=== PATIENT | male | born 1950 | race Caucasian/White ===

== ENCOUNTER 2018-04-10 20:55 | Inpatient (IN) ==
[2018-04-18] MEDS ORDERED: Acetaminophen 325 MG Tablet PO PRN (00:01)
[2018-04-18] MEDS ORDERED: Bisacodyl 10 MG Supp RECTAL PRN (00:01)
[2018-04-18] MEDS ORDERED: Morphine Inj 4 MG/ML Vial IV.PUSH PRN (00:01)
[2018-04-18] MEDS ORDERED: Warfarin Consult Pharmacy 1 EACH OTHER SCH (00:01)
[2018-04-18] MEDS ORDERED: Insulin NovoLOG Aspart Correctional Sugar Inj SQ SCH (00:01)
[2018-04-18] MEDS ORDERED: Sod Chloride 0.9% Inj 1,000 ML IV.SIG SCH (00:01)
[2018-04-18] MEDS ORDERED: Dextrose 50% in Water 50 ML Vial IV.PUSH PRN (00:01)
[2018-04-18] MEDS ORDERED: Levothyroxine 75 MCG Tablet PO SCH (06:00)
[2018-04-18] MEDS ORDERED: Levothyroxine 100 MCG Tablet PO SCH (06:00)
[2018-04-18] MEDS ORDERED: Gentamicin 0.1% Cream 15 GM Cream TOPICAL SCH (09:00)
[2018-04-18] MEDS ORDERED: Heparin Central Flush 100 UNIT/ML 5 ML Vial IV.FLUSH SCH (09:00)
[2018-04-18] MEDS ORDERED: amLODIPine 5 MG Tablet PO SCH (09:00)
[2018-04-18] MEDS ORDERED: DAPTOmycin Inj 400 MG in Sodium Chlor 0.9% Inj 100 ML IV.SIG SCH (09:00)
[2018-04-18] MEDS ORDERED: Furosemide 20 MG Tablet PO SCH (09:00)
[2018-04-18] MEDS ORDERED: Senna/Docusate Sodium 8.6/50 MG Tablet PO SCH (09:00)
[2018-04-18] MEDS ORDERED: Insulin Detemir Inj 1,000 UNIT/10 ML Vial SQ SCH (09:00)
[2018-04-18] MEDS ORDERED: Lidocaine 5% Patch T-DERMAL SCH (09:00)
[2018-04-18] MEDS ORDERED: Pregabalin 75 MG Capsule PO SCH (09:00)
[2018-04-18] MEDS ORDERED: Venlafaxine XR 75 MG Capsule PO SCH (09:00)
== END 2018-04-17 13:43 ==
LOC: MERGE 22:47 → N03 22:47
PROVIDERS: ADMIT Hospitalist; ATTEND Hospitalist

== ENCOUNTER 2018-06-22 00:47 | Inpatient (IN) ==
[2018-06-22 01:09] LABS: Baso % (Auto) 0.1 % (0.0-2.0); Eos % (Auto) 0.1 % (0.0-4.0); Hematocrit 35.2 % (39.0-51.0); Hemoglobin 11.9 gm/dL (13.0-17.0); Lymph # (Auto) 0.7 th/mm3 (1.0-4.8); Mean Corpuscular HGB Conc 33.7 % (32.0-36.0); Mean Corpuscular Hemoglobin 31.8 pg (27.0-34.0); Mean Corpuscular Volume 94.5 fL (80.0-100.0); Mean Platelet Volume 7.7 fL (7.0-11.0); Mono # (Auto) 0.5 th/mm3 (0.0-0.9); Mono % (Auto) 5.6 % (0.0-8.0); Neut # (Auto) 8.4 th/mm3 (1.8-7.7); Neut % (Auto) 87.2 % (16.0-70.0); Platelet Count 220 th/mm3 (150-450); Red Blood Count 3.73 mil/mm3 (4.50-5.90); Red Cell Distribution Width 15.6 % (11.6-17.2); White Blood Count 9.7 th/mm3 (4.0-11.0)
--- NOTE | 2018-06-22 01:22 | XR ---
EXAM DATE: 06/22/2018 1:17 AM EDT AGE/SEX: 89 years / Male INDICATIONS: Trauma. CLINICAL DATA: This is the patient's initial encounter. Patient reports that signs and symptoms have been present for 1 day and indicates a pain score of Nonresponsive. MEDICAL/SURGICAL HISTORY: Non-responsive. Non-responsive. COMPARISON: No prior exams available for comparison. FINDINGS: 2 AP views of the pelvis performed on a trauma backboard demonstrate no definite fracture or dislocat ion. Sacroiliac joints are symmetric without widening. Penile prosthesis is present. No soft tissue a bnormality is appreciated. CONCLUSION: No acute pelvis abnormality is identified. Electronically signed by: Tommie Merino MD 06/22/2018 1:21 AM EDT
--- NOTE | 2018-06-22 01:25 | CT ---
EXAM DATE: 06/22/2018 1:17 AM EDT AGE/SEX: 89 years / Male INDICATIONS: Trauma Alert, fall. No feeling from neck down. CLINICAL DATA: This is the patient's initial encounter. Patient reports that signs and symptoms have been present for 1 day and indicates a pain score of 0/10. MEDICAL/SURGICAL HISTORY: None. None. RADIATION DOSE: 70.40 CTDI (mGy) ;Tabletop exam COMPARISON: No prior exams available for comparison. TECHNIQUE: CT of the head without contrast. Using automated exposure control and adjustment of the mA and/or kV according to patient size, radiation dose was kept as low as reasonably achievable to ob tain optimal diagnostic quality images. DICOM format image data is available electronically for revi ew and comparison. FINDINGS: Cerebrum: There is mild generalized atrophy and ventricles are normal given the degree of atrophy. M ild periventricular white matter change is present. No midline shift, mass lesion, hemorrhage or acu te infarction. No extraaxial fluid collections are seen. Posterior Fossa: The cerebellum and brainstem demonstrate no acute abnormality. The 4th ventricle is midline. The cerebellopontine angle is within normal limits. Extracranial: There is frontal scalp soft tissue swelling. Skull: The calvaria is intact. No skull fracture. CONCLUSION: 1. Frontal scalp soft tissue swelling. No skull fracture or acute intracranial abnormality is identi fied. 2. There is mild generalized atrophy. . Electronically signed by: Tommie Merino MD 06/22/2018 1:23 AM EDT
--- NOTE | 2018-06-22 01:25 | ED ---
HPI General Chief Complaint: Trauma Alert Stated Complaint: Trauma Alert Lev I Fall/Evac Time Seen by Provider: 06/22/18 01:23 Source: patient and EMS Mode of arrival: EMS Limitations: no limitations History of Present Illness HPI narrative: The patient is a 68 year old male who presents to the [facility] emergency department with a history of with a reported history of a fall that occurred at approximately 12:30 PM yesterday. The patient presents approximate 12 hours after the fall. The patient reports that he was walking and tripped on a step up. The patient reports that he hit his head and did not lose consciousness. He reports that he woke up on the floor and was unable to move his arms or legs. He was lying on his right side until a friend came over to check on him. The patient was found lying on his right side, ambulance services were called. The patient was noted to be paralyzed below the neck. At level 1 trauma alert was called to this facility. The patient was noted prior to arrival to be hypertensive, pulse was in the 60s. The patient's O2 saturations were being maintained at a normal pulse ox by ambulance services. The patient was noted to have an abrasion above the right eye. The patient was unable to tolerate having a cervical collar placed, therefore he was brought in by ambulance services with a towel secured around his neck. The patient's only complaint is neck pain. He denies any pain in any other location, however he reports having numbness and inability to move his extremities, both arms and legs. Patient reports that his tetanus was last updated within the last 5 years. Related Data Allergies Allergy/AdvReac Type Severity Reaction Status Date / Time No Allergy Information Allergy Unverified 06/22/18 00:48 Available Review of Systems ROS: all other systems reviewed are negative PMFSH History History Provided By: Patient and Unit Secy / EMT Medical History Medical History Diabetes mellitus (Acute) Hyperlipidemia (Acute) Hypertension (Acute) Neck injury (Acute) Surgical History Surgical History S/P cervical spinal fusion (Acute) Social History Social History Second Hand Smoke Exposure: No Smoking Status: Unknown if ever smoked Exam Narrative Exam Narrative: General: The patient is a well-developed well-nourished male, uncomfortable appearing on arrival reporting neck pain. The patient is brought in on a back board with a towel secured around his neck for a cervical collar. Head and Neck exam: Head is normocephalic evidence of trauma to the right side of the forehead with an abrasion overlying an area of ecchymosis above the right eye. No facial bone tenderness or increased facial bone mobility noted on palpation. Eyes: EOMI, pupils are equal round and reactive to light. Nose: Midline septum with pink mucous membranes Mouth: Dentition unremarkable. Moist mucus membranes. Posterior oropharynx is not erythematous. No tonsillar hypertrophy. Uvula midline. Airway patent. Neck: The patient's cervical spine was immobilized with a cervical collar after the towel was gently removed while in line immobilization was maintained. No tracheal deviation. The trachea appears midline. Cardiovascular: Regular rate and rhythm without murmurs, gallops, or rubs. No pulse deficit to the extremities on simultaneous auscultation and palpation of his radial artery. Lungs: Clear to auscultation bilaterally. No wheezes, rhonchi, or rales. No chest wall tenderness to palpation. No erythema or ecchymosis noted. No crepitus , step off, or flail segment noted. Abdomen: Soft, without tenderness to palpation in all 4 quadrants of the abdomen. No guarding, rebound, or rigidity. No erythema or ecchymosis noted. Extremities: No instability or pain noted on pelvic rock. The patient has difficult to palpate pulse on the right upper extremity, however it is noted to be present, 1+ on exam with good cap refill. The patient is noted to have edema of the right upper extremity. The patient is noted to have petechiae involving the right upper extremity from the elbow down. The patient is noted to have small vesicles along the proximal upper right arm, right upper chest wall. The patient is noted to have a plaque-like area of induration along the lateral aspect of the upper arm overlying the humerus. This palpates to be a brawny area of induration. The patient reports that this is been present for the last month. The patient has no sensation or movement noted and bilateral upper extremities or lower extremities. The patient had soft compartments on palpation of the right upper extremity. Bilateral lower extremities have trace pedal edema. Back: The patient was log rolled off of the back board. No spinous process tenderness to palpation. No stepoff or crepitus noted. No erythema or ecchymosis. Neurologic Exam: No facial asymmetry. The patient has no spontaneous motor activity or sensation noted below the neck. Skin Exam: No rash noted. Intact skin that is warm and dry. Course Consultations Consultation #1: The patient's case including history, pertinent physical examination findings, and laboratory studies were discussed with Dr. Daniel. It was agreed that the patient would be admitted to the trauma service. Time: 00:33 Consultation #2: The patient's case including history, pertinent physical examination findings, and laboratory studies were discussed with Dr. Lopez in the trauma bay. As the patient has complete paralysis below the neck and has been on the floor since yesterday at 12:30 PM, he is concerned that the paralysis may be permanent. He reports that he would like CT imaging of the C- spine, T-spine, and L-spine, followed by MRIs without contrast to be done in the morning. He does not recommend any other medications at this time. Initial Documented Vital Signs Pulse Oximetry 96 06/22/18 00:52 Last Documented Vital Signs Respiratory Rate 14 06/22/18 07:00 Pulse Oximetry 99 06/22/18 07:00 Critical Care Time Critical Care Time: Yes Total Critical Care Time: 31 Attestation: Aggregate critical care time was 33 minutes. Time to perform other separately billable procedures was not included in the critical care time. My time did not include minutes spent treating any other patients simultaneously or on activities that did not directly contribute to the patient's treatment. The services I provided to this patient were to treat and/or prevent clinically significant deterioration that could result in: Respiratory failure versus cardiovascular collapse from spinal shock I provided critical care services requiring my management, as noted below: Chart data review, documentation time, medication orders and management, vital sign assessments/reviewing monitor data, ordering and reviewing lab tests, ordering and interpreting/reviewing x-rays and diagnostic studies, care of the patient and discussion of the patient with the admitting physicians. Medical Decision Making MDM Narrative Medical decision making narrative: During the course of the patient's emergency department visit, the patient's history, examination, and differential diagnosis were reviewed with the patient. The patient had large-bore IVs placed in the left upper extremity. The patient had a chest x-ray, pelvis x- ray ordered in the trauma bay. The patient had a cervical collar placed instead of the towel that was immobilizing his neck. An i-STAT with creatinine was ordered. The patient was initially provided normal saline IV fluids, Ancef 2 g IV. The patient reports that his tetanus was updated within the last 5 years. The patient's i-STAT reveals a creatinine of 2.2, hemoglobin was 11.6.Trauma bayThe patient had a chest x-ray and a pelvic x-ray done in the, pelvis x-ray showed no acute abnormality, chest x-ray showed no acute abnormality. The patient will undergo CT scan of the head, neck, chest, abdomen and pelvis, C -spine, T-spine, and L-spine. Given the patient's paralysis of the upper and lower extremities, an urgent call was placed out to the neurosurgeon on-call. I spoke to Dr. Lopez regarding this patient's case while I was still in the trauma bay with the patient. Due to the fact that the patient had the fall approximately 12 hours ago, he does not recommend an MRI be done emergently, instead he recommends that an MRI be done in the morning. He recommends MRI of the C-spine, T-spine, and L-spine without contrast. He recommends proceeding right now a CT scan of the C-spine, T-spine, and L-spine. He recommends continuation of the cervical collar. The patient was accompanied to CT by me. The patient continued to have no signs of respiratory failure. The patient's O2 saturations were 99% on [address] scan of the brain showed no acute abnormality, CT scan of the C- spine shows a fracture involving the left C3 transverse process and likely pedicle, additionally there is retrolisthesis of C4 on C5 C3 on C4 which is suspected to be acute given the break in the anterior vertebral osteophytes at this level. 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 There is asymmetric widening of the right C3- C4 facet joint. Severe spinal stenosis likely explains the clinical findings. T-spine CT shows accentuated thoracic kyphosis with multilevel degenerative change, no fracture or acute abnormality, lumbar spine CT shows no acute lumbar spine abnormality, degenerative changes are noted. CT scan of the abdomen and pelvis shows no acute thoracic injury, moderate to severe atherosclerotic disease. The patient's case was discussed with in the trauma bay. He recommended that the patient be admitted to the [facility]. The patient will be admitted to the [facility] in critical condition. Medical Screen Exam Complete: Yes Emergency Medical Condition: Yes Differential Diagnosis Differential Diagnosis: Intracranial trauma, versus cervical spine trauma, versus intrathoracic trauma, versus T spine injury, versus L spine injury, versus rhabdomyolysis, versus compartment syndrome Lab Data Result diagrams: 06/22/18 00:51 06/22/18 00:51 Lab Results 06/22/18 06/22/18 06/22/18 Range/Units 00:51 00:51 00:51 WBC 9.7 (4.0-11.0) th/mm3 RBC 3.73 L (4.50-5.90) mil/mm3 Hgb 11.9 L (13.0-17.0) gm/dL POC Hgb (Calc) (13.0-17.0) g/dL Hct 35.2 L (39.0-51.0) % POC Hct (39-51.0) % MCV 94.5 (80.0-100.0) fL MCH 31.8 (27.0-34.0) pg MCHC 33.7 (32.0-36.0) % RDW 15.6 (11.6-17.2) % Plt Count 220 (150-450) th/mm3 MPV 7.7 (7.0-11.0) fL Neut % (Auto) 87.2 H (16.0-70.0) % Lymph % (Auto) 7.0 L (9.0-44.0) % [place] % (Auto) 5.6 (0.0-8.0) % Eos % (Auto) 0.1 (0.0-4.0) % Baso % (Auto) 0.1 (0.0-2.0) % Neut # (Auto) 8.4 H (1.8-7.7) th/mm3 Lymph # (Auto) 0.7 L (1.0-4.8) th/mm3 [place] # (Auto) 0.5 (0.0-0.9) th/mm3 Eos # (Auto) 0.0 (0.0-0.4) th/mm3 Baso # (Auto) 0.0 (0.0-0.2) th/mm3 WBC Differential . Differential Comment Auto diff final PT 12.2 H (9.8-11.6) sec INR 1.2 Ratio APTT 24.4 (24.3-30.1) sec Fibrinogen 401 H (227-377) mg/dL POC Sodium (137-144) mmol/L Sodium (136-145) meq/L POC Potassium (3.6-5.0) mmol/L Potassium (3.5-5.1) meq/L POC Chloride (102-111) mmol/L Chloride (98-107) meq/L Carbon Dioxide (21.0-32.0) meq/L Anion Gap (5-15) meq/L POC BUN (5-21) mg/dL BUN (7-18) mg/dL Creatinine (0.60-1.30) mg/dL POC Creatinine (0.6-1.3) mg/dL Estimated GFR (>89) mL/min POC Glucose (68-110) mg/dL Random Glucose (74-106) mg/dL Calcium (8.5-10.1) mg/dL Total Bilirubin (0.2-1.0) mg/dL AST (15-37) U/L ALT (12-78) U/L Alkaline Phosphatase (45-117) U/L Total Creatine Kinase (39-308) U/L CK-MB (CK-2) (0.5-3.6) ng/mL CK-MB (CK-2) % (0.0-4.0) % Troponin I (0.02-0.05) ng/mL Total Protein (6.4-8.2) g/dL Albumin (3.4-5.0) g/dL Serum Alcohol (0-5) mg/dL Blood Type O Positive Antibody Screen Negative 06/22/18 Range/Units 00:51 WBC (4.0-11.0) th/mm3 RBC (4.50-5.90) mil/mm3 Hgb (13.0-17.0) gm/dL POC Hgb (Calc) 11.6 L (13.0-17.0) g/dL Hct (39.0-51.0) % POC Hct 34.0 L (39-51.0) % MCV (80.0-100.0) fL MCH (27.0-34.0) pg MCHC (32.0-36.0) % RDW (11.6-17.2) % Plt Count (150-450) th/mm3 MPV (7.0-11.0) fL Neut % (Auto) (16.0-70.0) % Lymph % (Auto) (9.0-44.0) % [place] % (Auto) (0.0-8.0) % Eos % (Auto) (0.0-4.0) % Baso % (Auto) (0.0-2.0) % Neut # (Auto) (1.8-7.7) th/mm3 Lymph # (Auto) (1.0-4.8) th/mm3 [place] # (Auto) (0.0-0.9) th/mm3 Eos # (Auto) (0.0-0.4) th/mm3 Baso # (Auto) (0.0-0.2) th/mm3 WBC Differential Differential Comment PT (9.8-11.6) sec INR Ratio APTT (24.3-30.1) sec Fibrinogen (227-377) mg/dL POC Sodium 133 L (137-144) mmol/L Sodium 135 L (136-145) meq/L POC Potassium 6.0 H (3.6-5.0) mmol/L Potassium 5.8 H (3.5-5.1) meq/L POC Chloride 98 L (102-111) mmol/L Chloride 98 (98-107) meq/L Carbon Dioxide 25.8 (21.0-32.0) meq/L Anion Gap 11 (5-15) meq/L POC BUN 42 H (5-21) mg/dL BUN 40 H (7-18) mg/dL Creatinine 2.08 H (0.60-1.30) mg/dL POC Creatinine 2.2 H (0.6-1.3) mg/dL Estimated GFR 28 L (>89) mL/min POC Glucose 351 H (68-110) mg/dL Random Glucose 334 H (74-106) mg/dL Calcium 8.2 L (8.5-10.1) mg/dL Total Bilirubin 0.4 (0.2-1.0) mg/dL AST 108 H (15-37) U/L ALT 33 (12-78) U/L Alkaline Phosphatase 91 (45-117) U/L Total Creatine Kinase 6703 H (39-308) U/L CK-MB (CK-2) 16.6 H (0.5-3.6) ng/mL CK-MB (CK-2) % 0.2 (0.0-4.0) % Troponin I Less than 0.02 L (0.02-0.05) ng/mL Total Protein 7.9 (6.4-8.2) g/dL Albumin 3.0 L (3.4-5.0) g/dL Serum Alcohol Less than 3 (0-5) mg/dL Blood Type Antibody Screen Imaging Data Radiologist's impression: Chest CT 06/22/18 00:00 CONCLUSION: No acute abnormality is identified within the chest. Pelvis X-Ray 06/22/18 00:49 CONCLUSION: No acute pelvis abnormality is identified. Abdomen/Pelvis CT 06/22/18 00:51 CONCLUSION: 1. No acute traumatic injury is identified within the abdomen or pelvis. 2. Moderate to severe atherosclerotic disease. Cervical Spine CT 06/22/18 00:51 CONCLUSION: 1. There is a fracture involving the left C3 transverse process and likely pedicle. 2. Additionally, there is retrolisthesis of C3 on C4 which is suspected to be acute given the break in the anterior vertebral osteophytes at this level. 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 There is also asymmetric widening of the right C3-C4 facet joint. The severe spinal canal stenosis likely explains the clinical findings. 3. Otherwise, multilevel degenerative change, as above. Head CT 06/22/18 00:51 CONCLUSION: 1. Frontal scalp soft tissue swelling. No skull fracture or acute intracranial abnormality is identified. 2. There is mild generalized atrophy. . Lumbar Spine CT 06/22/18 00:51 CONCLUSION: No acute lumbar spine injury is identified. There are degenerative changes throughout the lumbar spine consisting primarily of facet arthrosis with likely mild spinal canal narrowing at L2-L3 and L3-L4. Thoracic Spine CT 06/22/18 00:51 CONCLUSION: Accentuated thoracic kyphosis with multilevel degenerative change. No fracture or acute thoracic spine abnormality is identified. Discharge Plan Discharge Disposition Patient Disposition: 30 Still Patient Discharge Details Diagnosis: Cervical spine fracture, Paralysis, Fall Physicians Team ED Provider: Naida Avendaño Primary Care Provider: UNKNOWN, Attending Provider: Joel Daniel Other Providers: Daniele Lopez ; Nate Deras ; Mitchell Duque ; [employer] ; Vladimir Wyman ; Sherri Zaidi ; Heri Rodriguez ; Alice Jim ; Amy Argueta ; Joel Daniel Discharge Interventions Interventions: ED Discharge Assessment Last Done: 06/22/18 02:27 Status ED Status: Left Department Discharge Information Discharge Date/Time: 06/22/18 02:27
[2018-06-22] MEDS ORDERED: Diphtheria/Tetanus/Pertussis Vaccine Inj 0.5 ML Syringe IM ONE (01:26)
[2018-06-22] MEDS ORDERED: ceFAZolin 2 GM Premix Inj 2 GM/50 ML PIGGYBACK IV.SIG ONE (01:26)
[2018-06-22 01:28] LABS: Alanine Aminotransferase 33 U/L (12-78); Anion Gap 11 meq/L (5-15); Aspartate Aminotransferase 108 U/L (15-37); Blood Urea Nitrogen 40 mg/dL (7-18); Calcium 8.2 mg/dL (8.5-10.1); Carbon Dioxide 25.8 meq/L (21.0-32.0); Chloride 98 meq/L (98-107); Glomerular Filtration Rate 28 mL/min (>89); Glucose,Random 334 mg/dL (74-106); Potassium 5.8 meq/L (3.5-5.1); Sodium 135 meq/L (136-145)
[2018-06-22 01:30] LABS: Activated Partial Thrombo Time 24.4 sec (24.3-30.1); INR 1.2 Ratio; Prothrombin Time 12.2 sec (9.8-11.6)
[2018-06-22] MEDS ORDERED: Sod Chloride 0.9% Inj 1,000 ML IV.CONT SCH (01:30)
--- NOTE | 2018-06-22 01:36 | CT ---
EXAM DATE: 06/22/2018 1:24 AM EDT AGE/SEX: 89 years / Male INDICATIONS: Trauma Alert, fall. No feeling from neck down. CLINICAL DATA: This is the patient's initial encounter. Patient reports that signs and symptoms have been present for 1 day and indicates a pain score of 0/10. MEDICAL/SURGICAL HISTORY: None. None. RADIATION DOSE: 26.19 CTDI (mGy) COMPARISON: No prior exams available for comparison. TECHNIQUE: Contiguous axial images were obtained using helical multirow detector technique. The vol umetric data was post-processed with multiplanar reconstruction in oblique axial, sagittal, and coron al planes. Using automated exposure control and adjustment of the mA and/or kV according to patient s ize, radiation dose was kept as low as reasonably achievable to obtain optimal diagnostic quality lyubov ges. DICOM format image data is available electronically for review and comparison. FINDINGS: Vertebrae: A fracture is present within the left transverse process of C3 with extension to the fora men transversarium and possible fracture involving the pedicle as well. Vertebral body height is main tained. There are flowing anterior vertebral osteophytes throughout the cervical spine with a break a nteriorly at C3-C4 and associated retrolisthesis. There is ossification of the posterior longitudinal ligament extending from C2 through C4. Anterior plate and screws are present at C6-C7 related to sayda or ACDF. Alignment: There is 6 mm of retrolisthesis of C3 on C4. The craniocervical junction and C1-C2 level demonstrate no significant abnormality. C2-C3: There is ossification of the posterior longitudinal ligament. No definite canal or neural for aminal stenosis is present. C3-C4: There is very severe spinal canal stenosis secondary to the ossified posterior longitudinal l igament and associated retrolisthesis. There is a fracture involving the left transverse process of t he C3 and possibly the left pedicle as well. There is widening of the right facet joint. C4-C5: There is mild posterior disc osteophyte complex. No canal stenosis or neural foraminal narrow ing is present. C5-C6: There is minimal posterior disc osteophyte complex with no canal or neural foraminal stenosis . C6-C7: Partial osseous fusion at this level with anterior hardware. There is a posterior disc osteop hyte complex and bilateral uncovertebral osteophyte. There is mild right and [id number] left ne ural foraminal narrowing. C7-T1: Minimal posterior disc osteophyte complex. No canal stenosis or neural foraminal narrowing is identified. Other: The visualized surrounding structures demonstrate no acute abnormality. CONCLUSION: 1. There is a fracture involving the left C3 transverse process and likely pedicle. 2. Additionally, there is retrolisthesis of C3 on C4 which is suspected to be acute given the break in the anterior vertebral osteophytes at this level. This results in 6 mm of retrolisthesis of C3-C4 and severe spinal canal stenosis secondary to the retrolisthesis and ossification of the posterior lo ngitudinal ligament. There is also asymmetric widening of the right C3-C4 facet joint. The severe spi nal canal stenosis likely explains the clinical findings. 3. Otherwise, multilevel degenerative change, as above. Electronically signed by: Tommie Merino MD 06/22/2018 1:35 AM EDT
[2018-06-22 01:54] LABS: Alkaline Phosphatase 91 U/L (45-117); Creatine Kinase 6703 U/L (39-308); Total Protein 7.9 g/dL (6.4-8.2)
--- NOTE | 2018-06-22 01:55 | CT ---
EXAM DATE: 06/22/2018 1:42 AM EDT AGE/SEX: 89 years / Male INDICATIONS: Trauma Alert, fall. No feeling from neck down. CLINICAL DATA: This is the patient's initial encounter. Patient reports that signs and symptoms have been present for 1 day and indicates a pain score of 0/10. MEDICAL/SURGICAL HISTORY: None. None. ORAL CONTRAST: No oral contrast ingested. RADIATION DOSE: 23.82 CTDI (mGy) COMPARISON: No prior exams available for comparison. TECHNIQUE: Multiple contiguous axial images were obtained through the abdomen and pelvis following b olus infusion of 90 ml Omnipaque 350 (iohexol) nonionic water-soluble contrast as a cumulative dose for multiple exams. No oral contrast ingested. Using automated exposure control and adjustment of t he mA and/or kV according to patient size, radiation dose was kept as low as reasonably achievable to obtain optimal diagnostic quality images. DICOM format image data is available electronically for r eview and comparison. FINDINGS: Lower chest: Please refer to chest CT report for description of the supradiaphragmatic findings. Hepatobiliary: No acute injury is identified. No calcified gallstones are present. Kidneys: No hydronephrosis, stone, or mass. There is an 8 mm low-density lesion in the right mid kidn ey that is too small to characterize. There is also an incompletely characterize low-density lesion a t the upper pole the right kidney. Adrenal Glands: Within normal limits. Spleen: Within normal limits. Pancreas: Partial fatty replacement. No acute injury. Vascular: The aorta is nonaneurysmal. There is severe atherosclerotic disease with ectatic infrarenal aorta. Bowel/Mesentery: The stomach and small bowel demonstrate no abnormality. No acute colon abnormality i s seen. There is no free intraperitoneal air or fluid. Abdominal Wall: No hernia is visualized. Retroperitoneum: No lymphadenopathy. Bladder: Urinary bladder is decompressed with Lilly catheter in place. Reproductive: Penile prosthesis is present with fluid reservoir in the right anterior prevesical spac e with mild mass effect on the urinary bladder. Inguinal: No lymphadenopathy or hernia. Musculoskeletal: No acute osseous abnormality is identified. There are degenerative changes of the genny mbar spine. No fracture is identified. CONCLUSION: 1. No acute traumatic injury is identified within the abdomen or pelvis. 2. Moderate to severe atherosclerotic disease. Electronically signed by: Tommie Mreino MD 06/22/2018 1:53 AM EDT
--- NOTE | 2018-06-22 01:58 | CT ---
EXAM DATE: 06/22/2018 1:51 AM EDT AGE/SEX: 89 years / Male INDICATIONS: Trauma Alert, fall. No feeling from the neck down. CLINICAL DATA: This is the patient's initial encounter. Patient reports that signs and symptoms have been present for 1 day and indicates a pain score of 0/10. MEDICAL/SURGICAL HISTORY: None. None. RADIATION DOSE: . CTDI (mGy) ; Reconstructed from previous dataset, no dose COMPARISON: No prior exams available for comparison. TECHNIQUE: Contiguous axial images were acquired with a multirow detector CT scanner after intraveno us administration of 90 ml Omnipaque 350 (iohexol) nonionic water-soluble contrast as a single exam dose. Multiplanar reconstructions in the sagittal and coronal plane were also performed. Using autom ated exposure control and adjustment of the mA and/or kV according to patient size, radiation dose wa s kept as low as reasonably achievable to obtain optimal diagnostic quality images. DICOM format lyubov data is available electronically for review and comparison. FINDINGS: There is normal sagittal spinal alignment. No fracture or compression deformity is present. There is no anterolisthesis or retrolisthesis. Facet hypertrophy is present throughout the lumbar spine. Spina l canal is not well visualized but there may be a mild degree of spinal canal narrowing at L2-L3 and L3-L4. Visualized paraspinous structures demonstrate no acute finding. CONCLUSION: No acute lumbar spine injury is identified. There are degenerative changes throughout the lumbar spin e consisting primarily of facet arthrosis with likely mild spinal canal narrowing at L2-L3 and L3-L4. Electronically signed by: Tommie Merino MD 06/22/2018 1:57 AM EDT
--- NOTE | 2018-06-22 02:00 | CT ---
EXAM DATE: 06/22/2018 1:49 AM EDT AGE/SEX: 89 years / Male INDICATIONS: Trauma Alert, fall. No feeling from the neck down. CLINICAL DATA: This is the patient's initial encounter. Patient reports that signs and symptoms have been present for 1 day and indicates a pain score of 0/10. MEDICAL/SURGICAL HISTORY: None. None. RADIATION DOSE: . CTDI (mGy) ; Reconstructed from previous dataset, no dose COMPARISON: No prior exams available for comparison. TECHNIQUE: Contiguous axial images were acquired using a multirow detector CT scanner after intraven ous administration of 90 ml Omnipaque 350 (iohexol) nonionic water-soluble contrast as a single exam dose. Multiplanar reconstruction in the sagittal and coronal planes was performed. Using automate d exposure control and adjustment of the mA and/or kV according to patient size, radiation dose was k ept as low as reasonably achievable to obtain optimal diagnostic quality images. DICOM format image data is available electronically for review and comparison. FINDINGS: There is accentuated thoracic kyphosis. Endplate osteophytes are present anteriorly throughout the th oracic spine. No fracture or compression deformity is present. There is no anterolisthesis or retroli sthesis. Spinal canal is not well visualized but no definite spinal canal stenosis is seen. Visualize d surrounding structures demonstrate no acute finding. CONCLUSION: Accentuated thoracic kyphosis with multilevel degenerative change. No fracture or acute thoracic spin e abnormality is identified. Electronically signed by: Tommie Merino MD 06/22/2018 1:59 AM EDT
--- NOTE | 2018-06-22 02:03 | CT ---
EXAM DATE: 06/22/2018 1:42 AM EDT AGE/SEX: 89 years / Male INDICATIONS: Trauma Alert, fall. No feeling from neck down. CLINICAL DATA: This is the patient's initial encounter. Patient reports that signs and symptoms have been present for 1 day and indicates a pain score of 0/10. MEDICAL/SURGICAL HISTORY: None. None. RADIATION DOSE: 23.82 CTDI (mGy) COMPARISON: No prior exams available for comparison. TECHNIQUE: Multiple contiguous axial images were obtained through the chest during bolus infusion of 90 ml Omnipaque 350 (iohexol) nonionic water-soluble contrast as a cumulative dose for multiple exa ms. Images were obtained in suspended respiration using multiple row detector helical technique. U sing automated exposure control and adjustment of the mA and/or kV according to patient size, radiati on dose was kept as low as reasonably achievable to obtain optimal diagnostic quality images. DICOM format image data is available electronically for review and comparison. FINDINGS: Lungs: There is respiratory motion artifact. No acute lung abnormality is identified. There is no pn eumothorax. Mediastinum: The heart and great vessels demonstrate no acute abnormality. No lymphadenopathy is id entified. There is coronary artery calcification. Pleurae: No pleural effusion or pleural thickening. Axillae: No lymphadenopathy. Musculoskeletal: The bones and soft tissues demonstrate no acute abnormality. There is degenerative changes of the thoracic spine. Other: Please refer to abdomen and pelvis CT report for description of the subdiaphragmatic findings . CONCLUSION: No acute abnormality is identified within the chest. Electronically signed by: Tommie Merino MD 06/22/2018 2:02 AM EDT
[2018-06-22 02:06] LABS: CKMB Percent 0.2 % (0.0-4.0); Creatine Kinase MB 16.6 ng/mL (0.5-3.6)
[2018-06-22] MEDS ORDERED: Morphine Inj 4 MG/ML Vial IV.SIG PRN ×2 (02:48→06:19)
--- NOTE | 2018-06-22 02:59 | P.CONNS ---
History of Present Illness Service: neurosurgery Consult date: 06/22/18 Requesting Physician: Joel Daniel Reason for Consult: Trauma alert, quadriplegic Primary Care Provider: UNKNOWN Chief Complaint: quadriplegia History of Present Illness: This is a 68-year-old male was brought in as a trauma alert. Apparently the patient apparently fell around noon at home. He was lying on his right side, unable to move for about 12 hours until a friend came to check on him. No loss of consciosness. No seizure activityy. No tongue bitting. No incontinence of stool or urine. The patient was then transferred to our institution as a trauma alert. He is noted to be paralyzed from the neck down. No sensory . no rectal tone. He is awake and alert, hypertensive. While in the ICU he developed respiratory failure requiring endotracheal intubation and mechanical ventilation CT showed a C3-4 fracture subluxation. Neurosurgical consultation was requested family history, social history, review of system unobtainable due to his condition Review of Systems unobtainable due to endotracheal tube PMFSH - Medical History Medical History: Medical History (Last Reviewed 06/24/18 @ 11:41 by Daniele Lopez MD) Diabetes mellitus Hyperlipidemia Hypertension Neck injury - Surgical History Surgical History: Surgical History (Last Reviewed 06/24/18 @ 11:41 by Daniele Lopez MD) S/P cervical spinal fusion Medications and Allergies Active Medications: Active Medications Sodium Chloride (Ns Inj) 1,000 mls @ 80 mls/hr IV.SIG .[id number] BISI Morphine Sulfate (Morphine Inj) 2 mg IV.SIG Q2H PRN PRN Reason: PAIN SCALE 6 TO 10 Oxycodone/Acetaminophen (Percocet 5/325 Mg) 1 tab PO Q4H PRN PRN Reason: PAIN SCALE 3 TO 5 Pantoprazole Sodium (Protonix Inj) 40 mg IV.PUSH DAILY BISI Allergies Allergy/AdvReac Type Severity Reaction Status Date / Time codeine Allergy Severe Unknown Verified 06/23/18 13:21 pantoprazole [From Protonix] Allergy Severe Unknown. Verified 06/23/18 13:21 Sulfa (Sulfonamide Allergy Severe unknown Verified 06/23/18 13:21 Antibiotics) Exam Vital signs: Vital Signs 06/22/18 00:52 Pulse Oximetry 96 Intake & Output 06/21/18 06/21/18 06/22/18 06:59 18:59 06:59 Weight 104.4 kg Other: Weight On Admission 104.4 kg Narrative: The patient is intubated and sedated. no response to pain all 4 extremities. Cranial Nerves: Pupils equal, 3 mm round, reactive to light. Eyes appear conjugated. There was no nystagmus, no papilledema. Face musculature appeared symmetrical at rest. Face sensation, olfaction, and hearing cannot be adequately assessed due to the patient's neurological condition. The patient has a corneal reflex. The patient has a gag reflex. The sternocleidomastoid and trapezius were symmetrical. Cervical Spine: The patient's neck is soft, supple, without nuchal rigidity. Motor: His muscle bulk is normal. NO movement in upper extremities, minimal reflexive movement in his lower extremities Reflexes: Deep tendon reflexes are trace in the biceps, triceps, and brachioradialis patellar and ankles. There is a bilateral neutral response to plantar stimulation. There is no clonus Sensory: On examination there there is no response to painful stimuli. Cerebellar: Examination cannot be adequately assessed due to the patient's neurological condition. Lungs: clear Heart: Regular rhythm and rate Skin: warm and dry Results - Laboratory Findings CBC and BMP: 06/24/18 04:35 06/24/18 04:35 Abnormal lab findings: Abnormal Labs 06/22/18 06/22/18 06/22/18 00:51 00:51 00:51 RBC 3.73 L Hgb 11.9 L POC Hgb (Calc) 11.6 L Hct 35.2 L POC Hct 34.0 L Neut % (Auto) 87.2 H Lymph % (Auto) 7.0 L Neut # (Auto) 8.4 H Lymph # (Auto) 0.7 L PT 12.2 H Fibrinogen 401 H POC Sodium 133 L Sodium 135 L POC Potassium 6.0 H Potassium 5.8 H POC Chloride 98 L POC BUN 42 H BUN 40 H Creatinine 2.08 H POC Creatinine 2.2 H Estimated GFR 28 L POC Glucose 351 H Random Glucose 334 H Calcium 8.2 L AST 108 H Total Creatine Kinase 6703 H CK-MB (CK-2) 16.6 H Troponin I Less than 0.02 L Albumin 3.0 L Assessment and Plan - Plan 68 year old male with a C3-C4 traumatic fracture subluxation with neurogenic shock. The patient will be placed in the ICU, rehydrated and monitored carefully. Acute respiratory failure I reviewed his radiological studies including Chest CT 06/22/18 00:00 CONCLUSION: No acute abnormality is identified within the chest. Pelvis X-Ray 06/22/18 00:49 CONCLUSION: No acute pelvis abnormality is identified. Abdomen/Pelvis CT 06/22/18 00:51 CONCLUSION: 1. No acute traumatic injury is identified within the abdomen or pelvis. 2. Moderate to severe atherosclerotic disease. Cervical Spine CT 06/22/18 00:51 CONCLUSION: 1. There is a fracture involving the left C3 transverse process and likely pedicle. 2. Additionally, there is retrolisthesis of C3 on C4 which is suspected to be acute given the break in the anterior vertebral osteophytes at this level. 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 There is also asymmetric widening of the right C3-C4 facet joint. The severe spinal canal stenosis likely explains the clinical findings. 3. Otherwise, multilevel degenerative change, as above. Head CT 06/22/18 00:51 CONCLUSION: 1. Frontal scalp soft tissue swelling. No skull fracture or acute intracranial abnormality is identified. 2. There is mild generalized atrophy. . Lumbar Spine CT 06/22/18 00:51 CONCLUSION: No acute lumbar spine injury is identified. There are degenerative changes throughout the lumbar spine consisting primarily of facet arthrosis with likely mild spinal canal narrowing at L2-L3 and L3-L4. Thoracic Spine CT 06/22/18 00:51 CONCLUSION: Accentuated thoracic kyphosis with multilevel degenerative change. No fracture or acute thoracic spine abnormality is identified. I discussed with his his clinical findings and alternatives of treatment. He has a severe, probable irreversible neurological dificits. I discussed with her the alternative of a surgical procedure with a C3-4 anterior cervical discectomy and arthrodhesis versus the possiblity of no treatment. Omayra discussed with her the [id number] details of the surgical procedure, its indications, alternatives, risks, and potential complications. Risks and potential complications include, but are not limited to, infection, blood loss, CSF leak, partial or complete loss of sight in one or both eyes, paresis, paralysis, permanent pain or difficulty swallowing, loss of bowel or bladder function, complications from anesthesia, blood clot, stroke, myocardial infarction, or even . The possibility of nonoperative treatment has been offered. I can't be optimistic regarding chances of neurological recovery. She wants to give him every possibe chance and she is requesting aggressive treatment. Given the patient's age and condition, [facility] is [facility] He is in shock, and initially required small dose dopamine to exert chronotropic and vasoactive drugs, including Rene-Synephrine He developed transitory hypotension and then periods of bradycardia and probably developed hypercapnia in the process becoming more somnolent and less responsive. After the period of bradycardia patient was immediately emergently intubated and ventilated Neuro: neuro checks in a serial fashion. Pulmonary: on ull mechanical ventilation on assist control mode of mechanical ventilation. Recommend aggressive pulmonary toilette, nasotracheal suction, and breathing treatments with nebulizers. Daily PT and OT Renal: Continue to monitor closely urine output, BUN and creatinine Endocrine: Continue to Monitor serial Acu checks and SSI as needed in detail ID continue to monitor for signs of infection Continue Protonix for stress ulcer prophylaxis Continue Alberto hose and SCD's for DVT prophylaxis Further recommendations will be provided depending on the patient's clinical evaluation and follow up studies. Discussed with trauma surgeon who is in agreement, and with his .
[2018-06-22] MEDS: Sod Chloride 0.9% Inj 1,000 ML IV.SIG SCH (03:18)
[2018-06-22] MEDS ORDERED: DOPamine 800 MG/500 ML Premix 800 MG/500 ML PLAST..BAG IV.CONT ONE (05:00)
[2018-06-22] MEDS ORDERED: Atropine Inj 1 MG/10 ML Syringe ONE (05:45)
[2018-06-22] MEDS ORDERED: Etomidate Inj 40 MG/20 ML Vial IV.PUSH ONE (06:56)
[2018-06-22] MEDS ORDERED: Propofol Inj 500 MG/50 ML Vial ONE ×3 (06:59→11:21)
[2018-06-22] MEDS ORDERED: Sod Chloride 0.9% Inj 1,000 ML IV.SIG ONE (07:00)
[2018-06-22] MEDS ORDERED: DOPamine 800 MG/500 ML Premix 800 MG/500 ML PLAST..BAG IV.CONT PRN (07:31)
[2018-06-22] MEDS ORDERED: DOPamine 400 MG/250 ML Premix 400 MG/250 ML BAG IV.CONT PRN (07:38)
--- NOTE | 2018-06-22 07:48 | XR ---
EXAM DATE: 06/22/2018 7:40 AM EDT AGE/SEX: 68 years / Male INDICATIONS: Post ET tube placement CLINICAL DATA: This is the patient's subsequent encounter. Patient reports that signs and symptoms h ave been present for 1 day and indicates a pain score of Nonresponsive. MEDICAL/SURGICAL HISTORY: . no feeling from neck down post fall Non-responsive. COMPARISON: No prior exams available for comparison. FINDINGS: A single AP view of the chest demonstrates patchy densities left lower lobe. Endotracheal tube 3.5 cm above fannie. Right lung clear. Heart enlarged. Old right-sided rib fracture. The cardiomediastinal contours are unremarkable. CONCLUSION: 1. Adequate placement of endotracheal tube. 2. Patchy densities left lower lobe. Electronically signed by: Balta Patricia MD 06/22/2018 7:47 AM EDT
[2018-06-22] MEDS ORDERED: Dextrose 50% in Water 50 ML Vial IV.PUSH PRN ×2 (07:54→12:16)
[2018-06-22 08:15] LABS: ABG Base Excess -3.7 mmol/L (-2-2); ABG PCO2 45 mmHg (38-42); ABG PO2 314 mmHg (61-120)
--- NOTE | 2018-06-22 08:17 | MH ---
cc: Joel Daniel MD DATE OF ADMISSION: 06/22/2018 HISTORY OF PRESENT ILLNESS: This 68-year-old male was brought in as a trauma alert around 1:30 a.m. The patient apparently fell around noon at home. Was lying on his right side, unable to move for about 12 hours until a friend came to check on him. The patient was then transferred to our institution. He is noted to be paralyzed from the neck down, although on arrival, he is awake and alert, somewhat hypertensive. PAST MEDICAL HISTORY: Diabetes, hyperlipidemia, hypertension. Previous neck injury for patient with a fusion at the C5-C6 level, surgical history of spinal fusion. SOCIAL HISTORY: NOT KNOWN. PHYSICAL EXAMINATION: GENERAL: Reveals a 68-year-old male, awake, alert, complaining about neck pain. HEAD: Normocephalic. No trauma, other than some bruising over the forehead and some ecchymosis over the right eye. Pupils are equal and reactive. Extraocular muscles intact. No hemotympanum, waddell sign, or raccoon's eyes. NECK: The patient has cervical immobilization, and this is carefully anteriorly removed. The patient is tender over the entire neck. However, no step-offs are noted on physical exam. Bilateral carotid pulses and bilateral faint carotid bruits. CHEST: Bilateral breath sounds. The patient is breathing normally and taking normal deep breaths. Saturations 100%. HEART: Hemodynamically the patient is stable. Regular rhythm and rate is in the 70-80 range. The patient is slightly hypertensive. ABDOMEN: Soft. Active bowel sounds. No rebound, no guarding, no masses. EXTREMITIES: The patient has bilateral femoral, popliteal, dorsalis pedis and posterior tibial pulses. Brachial bilateral pulses and on the right arm some swelling is noted, but there is a good capillary refill and the patient has a palpable radial pulse. I could not feel the ulnar pulse. The right arm and right thigh are slightly swollen with some petechial hemorrhages and bruising, which are consistent with lying on the right side down. The patient has some induration on the right and left arm, which have been there for a while. NEUROLOGIC: Jory coma scale is 15. The patient is awake, alert and oriented. His breathing is intact. Patient has no sensation or motion in upper or lower extremities. Deep tendon reflexes are not present. The patient is fairly flaccid. IMPRESSION: The patient with a C3-C4 over C4 retrolisthesis and spinal compression with neurogenic shock. The patient will be placed in the ICU, rehydrated and monitored carefully. This patient may worsen over the next 24-48 hours and require intubation, but right now the patient is awake and alert and intubation is not necessary. Neurosurgery is to see the patient as well. MD SHIRIN Aguero/breann , 07:52 AM , 08:01 AM
[2018-06-22] MEDS: Midazolam 50 MG/50 ML Inj 50 MG/50 ML BAG IV.CONT PRN (09:35)
[2018-06-22] MEDS: fentaNYL 10 mcg/mL Premix Drip 2,500 MCG/250 ML BAG IV.SIG PRN (09:36)
[2018-06-22] MEDS ORDERED: Gelatin Size 100 Topical Foam ONE (10:07)
[2018-06-22] MEDS ORDERED: Thrombin Topical Soln 5,000 UNIT Vial TOPICAL ONE (10:07)
[2018-06-22] MEDS ORDERED: Lidocaine 1%/Epinephrine 1:100,000 Inj 20 ML Vial ONE (10:07)
[2018-06-22] MEDS: Senna/Docusate Sodium 8.6/50 MG Tablet PO SCH ×3 (10:29→22:34)
[2018-06-22 10:31] LABS: Calcium 7.6 mg/dL (8.5-10.1); Carbon Dioxide 19.4 meq/L (21.0-32.0); Potassium 5.9 meq/L (3.5-5.1)
--- NOTE | 2018-06-22 10:31 | P.PNCC ---
Subjective Brief History: This 68-year-old male was brought in as a trauma alert around 1:30 a.m. The patient apparently fell around noon at home. Was lying on his right side, unable to move for about 12 hours until a friend came to check on him. The patient was then transferred to our institution. He is noted to be paralyzed from the neck down, although on arrival, he is awake and alert, somewhat hypertensive. On arrival [place] coma scale is 15. The patient is awake, alert and oriented. His breathing is intact. Patient has no sensation or motion in upper or lower extremities. Deep tendon reflexes are not present. The patient is fairly flaccid. PAST MEDICAL HISTORY: Diabetes, hyperlipidemia, hypertension. Previous neck injury for patient with a fusion at the C5-C6 level, surgical history of spinal fusion. Final injuries detected The patient with a C3-C4 over C4 retrolisthesis and spinal compression. The patient will be placed in the ICU, rehydrated and monitored carefully. This patient may worsen over the next 24- 48 hours and require intubation, but right now the patient is awake and alert and intubation is not necessary. Neurosurgery is to see the patient as well. 24 Hour Review/Hospital Course: 06/22/2018 Neurologically alert and oriented and mildly sedated with Versed and fentanyl complaining about neck pain Hemodynamically now stable Required initially small dose dopamine to exert chronotropic and vasoactive effects I find Dopamine to be an ideal drug for patients with neurogenic shock Throughout the night patient was initially awake alert and oriented and in started developing more symptoms of neurogenic shock as it was expected Patient developed transitory hypotension and then periods of bradycardia and probably developed hypercapnia in the process becoming more somnolent. After the period of bradycardia patient was immediately emergently intubated and ventilated Postintubation bilateral breath sounds with good PO2 FiO2 gradient in good position of endotracheal tube PCO2 had normalized nonetheless I believe patient did have hypercarbia at the time of intubation Mentally he fully recovered he is aphasic alert and following commands about an hour after intubation Patient will undergo MRI of the C-spine followed by surgical decompression As noted in the history patient was laying on his side for about 12 hours and he has significant swelling of the right side and the right arm. Patient has good proximal pulses and distal radial pulse on palpation and ulnar by Doppler Capillary refill is intact Patient will be watched very carefully for development of increased swelling which could lead to compartment syndrome and ischemia of the hand Objective Vital Signs / I&O: Vital Signs 06/22/18 00:52 06/22/18 07:00 06/22/18 07:34 Respiratory Rate 14 18 Pulse Oximetry 96 99 100 Intake & Output 06/21/18 06/22/18 06/22/18 18:59 06:59 18:59 Intake Total 1000 / 1000 1000 / 1000 Balance 1000 / 1000 1000 / 1000 Weight 104.4 kg Intake: IV 1000 / 1000 1000 / 1000 NS Inj 1,000 ML @ 80 mls/hr IV. 1000 / 1000 1000 / 1000 SIG .[id number] [facility] Rx#:[id number] Other: Weight On Admission 104.4 kg Result Diagrams: 06/22/18 18:36 06/22/18 12:18 Imaging: Impressions Chest CT 06/22/18 00:00 CONCLUSION: No acute abnormality is identified within the chest. Pelvis X-Ray 06/22/18 00:49 CONCLUSION: No acute pelvis abnormality is identified. Abdomen/Pelvis CT 06/22/18 00:51 CONCLUSION: 1. No acute traumatic injury is identified within the abdomen or pelvis. 2. Moderate to severe atherosclerotic disease. Cervical Spine CT 06/22/18 00:51 CONCLUSION: 1. There is a fracture involving the left C3 transverse process and likely pedicle. 2. Additionally, there is retrolisthesis of C3 on C4 which is suspected to be acute given the break in the anterior vertebral osteophytes at this level. 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 There is also asymmetric widening of the right C3-C4 facet joint. The severe spinal canal stenosis likely explains the clinical findings. 3. Otherwise, multilevel degenerative change, as above. Head CT 06/22/18 00:51 CONCLUSION: 1. Frontal scalp soft tissue swelling. No skull fracture or acute intracranial abnormality is identified. 2. There is mild generalized atrophy. . Lumbar Spine CT 06/22/18 00:51 CONCLUSION: No acute lumbar spine injury is identified. There are degenerative changes throughout the lumbar spine consisting primarily of facet arthrosis with likely mild spinal canal narrowing at L2-L3 and L3-L4. Thoracic Spine CT 06/22/18 00:51 CONCLUSION: Accentuated thoracic kyphosis with multilevel degenerative change. No fracture or acute thoracic spine abnormality is identified. Chest X-Ray 06/22/18 07:02 CONCLUSION: 1. Adequate placement of endotracheal tube. 2. Patchy densities left lower lobe. Aggression Score: 14.00 Lability Score: 14.00 - Exam DIRECTOR INTERNATIONAL: Neurologically alert and oriented and mildly sedated with Versed and fentanyl complaining about neck pain Patient became obtunded to intubation in the face of progressive neurogenic shock and hypercapnia Hemodynamic/Cardiac: Hemodynamically now stable Required initially small dose dopamine to exert chronotropic and vasoactive effects I find and Rene-Synephrine to be an ideal drug for patients with neurogenic shock Throughout the night patient was initially awake alert and oriented and in started developing more symptoms of neurogenic shock as it was expected Patient developed transitory hypotension and then periods of bradycardia and probably developed hypercapnia in the process becoming more somnolent. After the period of bradycardia patient was immediately emergently intubated and ventilated Pulmonary/Respiratory: Postintubation bilateral breath sounds with good PO2 FiO2 gradient in good position of endotracheal tube PCO2 had normalized nonetheless I believe patient did have hypercarbia at the time of intubation Mentally he fully recovered he is aphasic alert and following commands about an hour after intubation Patient will undergo MRI of the C-spine followed by surgical decompression Abdomen/GI Nutrition: Abdomen is soft Renal/I&O: Renal function preserved Assessment and Plan Attestation: Critical care time 42 minutes
[2018-06-22] MEDS: Pantoprazole Inj 40 MG Vial IV.PUSH SCH (11:13)
[2018-06-22] MEDS ORDERED: SUFentanil Inj 250 MCG/5 ML Ampul ONE (11:22)
--- NOTE | 2018-06-22 11:25 | MR ---
EXAM DATE: 06/22/2018 11:10 AM EDT AGE/SEX: 68 years / Male INDICATIONS: Fracture. Pt fell stiking head. CLINICAL DATA: This is the patient's initial encounter. Patient reports that signs and symptoms have been present for 2 days and indicates a pain score of Nonresponsive. MEDICAL/SURGICAL HISTORY: Diabetes mellitus type II. Hypertension. Fusion, cervical. COMPARISON: [facility] [place] CERVICAL [place]/O CONTRAST, 06/22/2018. . TECHNIQUE: Multiplanar, multisequence MRI examination of the cervical spine was performed without co ntrast. FINDINGS: Vertebrae: The fracture at C3 with retrolisthesis is again noted. This causes severe canal stenosis and compresses the cord at this level. High signal seen within the cord from C2 to the top of C5. Alignment: Normal. Cord: Normal configuration and signal. Post Fossa: The cerebellar tonsils are normal in position. C2-C3: Small posterior disc osteophyte complex and calcification the posterior longitudinal ligament abuts the ventral thecal sac. No canal stenosis. The neural foramina are patent bilaterally. C3-C4: Retrolisthesis C3 on 4 of approximately 6 mm abuts the ventral thecal sac and compresses the cord causing severe canal stenosis. Moderate to severe bilateral neural foraminal narrowing. C4-C5: The thecal sac has a normal configuration. There is no evidence of disc herniation or spinal canal stenosis. The neural foramina are patent bilaterally. C5-C6: The thecal sac has a normal configuration. There is no evidence of disc herniation or spinal canal stenosis. The neural foramina are patent bilaterally. C6-C7: The thecal sac has a normal configuration. There is no evidence of disc herniation or spinal canal stenosis. The neural foramina are patent bilaterally. C7-T1: No epidural impressions seen. CONCLUSION: 1. Fracture at C3 with retrolisthesis compressing the cord causing severe canal stenosis. 2. Edema within the cord from C2 to C5. Electronically signed by: Balta Patricia MD 06/22/2018 11:24 AM EDT
--- NOTE | 2018-06-22 11:38 | MR ---
EXAM DATE: 06/22/2018 11:27 AM EDT AGE/SEX: 68 years / Male INDICATIONS: Trauma. Pt fell. CLINICAL DATA: This is the patient's initial encounter. Patient reports that signs and symptoms have been present for 2 days and indicates a pain score of Nonresponsive. MEDICAL/SURGICAL HISTORY: Diabetes mellitus type II. Hypertension. Fusion, cervical. COMPARISON: . TECHNIQUE: Multiplanar, multisequence MRI of the thoracic spine was performed. FINDINGS: Vertebrae: Normal vertebral body height. Homogeneous marrow signal. Alignment: There is kyphosis. Diffuse mild degenerative changes.. Cord: Normal position and configuration. T1-T2: The thecal sac has a normal diameter. No evidence of disc bulge or protrusion. T2-T3: The thecal sac has a normal diameter. No evidence of disc bulge or protrusion. T3-T4: The thecal sac has a normal diameter. No evidence of disc bulge or protrusion. T4-T5: The thecal sac has a normal diameter. No evidence of disc bulge or protrusion. T5-T6: The thecal sac has a normal diameter. No evidence of disc bulge or protrusion. T6-T7: The thecal sac has a normal diameter. No evidence of disc bulge or protrusion. T7-T8: The thecal sac has a normal diameter. No evidence of disc bulge or protrusion. T8-T9: The thecal sac has a normal diameter. No evidence of disc bulge or protrusion. T9-T10: Small left-sided protrusion causes narrowing the left lateral recess and left neural foramen . No canal stenosis. T10-T11: Asymmetric left-sided disc bulge abuts the left ventral thecal sac. No canal stenosis. T11-T12: The thecal sac has a normal diameter. No evidence of disc bulge or protrusion. Moderate fa cet arthropathy. T12-L1: The thecal sac has a normal diameter. No evidence of disc bulge or protrusion. CONCLUSION: 1. Kyphosis without compression deformity. 2. Left-sided protrusion at T9-10 without canal stenosis. There is narrowing of the left lateral rec ess. 3. Asymmetric left-sided disc bulge T10-11. Electronically signed by: Balta Patricia MD 06/22/2018 11:37 AM EDT
[2018-06-22] MEDS ORDERED: Sodium Chlor 0.9% Inj 500 ML IV.SIG ONE ×2 (11:40)
[2018-06-22] MEDS ORDERED: Lidocaine PF 1% Inj 5 ML Syringe INFILTRATN ONE (11:40)
[2018-06-22] MEDS ORDERED: Normosol-R pH 7.4 Inj 1,000 ML IV.CONT ONE (11:40)
[2018-06-22] MEDS ORDERED: Phenylephrine/NS 1000 MCG/10ML Syringe IV.PUSH ONE (11:40)
--- NOTE | 2018-06-22 11:50 | MR ---
EXAM DATE: 06/22/2018 11:41 AM EDT AGE/SEX: 68 years / Male INDICATIONS: Trauma. Pt fell. CLINICAL DATA: This is the patient's initial encounter. Patient reports that signs and symptoms have been present for 2 days and indicates a pain score of Nonresponsive. MEDICAL/SURGICAL HISTORY: Diabetes mellitus type II. Hypertension. Fusion, cervical. COMPARISON: [facility] – [place] CERVICAL SPINE W/O CONTRAST, 06/22/2018. . TECHNIQUE: Multiplanar, multisequence MRI of the lumbar spine was performed without contrast. Patie nt was scanned in a sitting position; neutral, flexion, and extension scans were performed in the sa gittal plane. FINDINGS: Vertebra: Homogeneous signal. Normal alignment. Diffuse disc desiccation. Conus: Normal level and configuration. T12-L1: The thecal sac has a normal diameter. No evidence of disc bulge or protrusion. The neural foramina are patent bilaterally. L1-L2: The thecal sac has a normal diameter. No evidence of disc bulge or protrusion. Moderate fac et arthropathy and ligamentum flavum thickening causes mild canal stenosis. L2-L3: Mild broad-based disc bulge and moderate facet arthropathy. No canal stenosis. The neural fo ramina are patent bilaterally. L3-L4: Mild broad-based disc bulge and moderate facet arthropathy. No canal stenosis. The neural foramina are patent bilaterally. L4-L5: Mild broad-based disc bulge and moderate facet arthropathy/ligamentum flavum thickening caus es mild canal stenosis. The neural foramina are patent bilaterally. L5-S1: Mild broad-based disc bulge abuts the ventral thecal sac without canal stenosis. The neural foramina are patent bilaterally. CONCLUSION: 1. Multilevel disc bulges. 2. No compression fracture. Electronically signed by: Balta Patricia MD 06/22/2018 11:48 AM EDT
[2018-06-22] MEDS ORDERED: Insulin NovoLOG Aspart Correctional Sugar Inj SQ SCH (12:00)
--- NOTE | 2018-06-22 12:14 | ECG ---
Date Performed: 06/22/2018 Time Performed: 07:07:56 PTAGE: 68 years EKG: Sinus rhythm with first degree AV block Left anterior fascicular block Lateral T wave changes are nonspecific Low QRS voltages in precordial leads Borderline ECG NO PREVIOUS TRACING DOCTOR: Aguilar Fowler Interpretating Date/Time 06/22/2018 12:13:05
[2018-06-22 12:40] LABS: ABG Base Excess -7.4 mmol/L (-2-2); ABG PCO2 46 mmHg (38-42); ABG PO2 246 mmHG (61-120)
[2018-06-22 12:44] LABS: Hematocrit 30.3 % (39.0-51.0); Hemoglobin 10.1 gm/dL (13.0-17.0); Mean Corpuscular HGB Conc 33.4 % (32.0-36.0); Mean Corpuscular Hemoglobin 31.8 pg (27.0-34.0); Mean Corpuscular Volume 95.3 fL (80.0-100.0); Mean Platelet Volume 8.2 fL (7.0-11.0); Platelet Count 180 th/mm3 (150-450); Red Blood Count 3.18 mil/mm3 (4.50-5.90); Red Cell Distribution Width 15.6 % (11.6-17.2); White Blood Count 12.5 th/mm3 (4.0-11.0)
[2018-06-22] MEDS ORDERED: Insulin Regular (For Infusion) 100 UNIT in Sodium Chlor 0.9% Inj 99 ML IV.CONT PRN (13:00)
[2018-06-22 13:06] LABS: Alanine Aminotransferase 85 U/L (12-78); Alkaline Phosphatase 66 U/L (45-117); Anion Gap 16 meq/L (5-15); Aspartate Aminotransferase 434 U/L (15-37); Blood Urea Nitrogen 44 mg/dL (7-18); Calcium 7.9 mg/dL (8.5-10.1); Carbon Dioxide 20.2 meq/L (21.0-32.0); Chloride 102 meq/L (98-107); Glomerular Filtration Rate 28 mL/min (>89); Glucose,Random 413 mg/dL (74-106); Potassium 4.8 meq/L (3.5-5.1); Sodium 138 meq/L (136-145); Total Protein 5.9 g/dL (6.4-8.2)
[2018-06-22] MEDS ORDERED: Norepinephrine Inj 4 MG/4 ML Ampul ONE (13:46)
[2018-06-22] MEDS: Oral Hygiene Kit OROPHARYNG SCH (16:02)
[2018-06-22 16:11] LABS: ABG Base Excess -6.2 mmol/L (-2-2); ABG PCO2 32 mmHg (38-42); ABG PO2 251 mmHG (61-120)
[2018-06-22] MEDS ORDERED: Bisacodyl 10 MG Supp RECTAL PRN (18:26)
--- NOTE | 2018-06-22 18:30 | P.OP ---
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 Apparently the patient apparently fell around noon at home. He was lying on his right side, unable to move for about 12 hours until a friend came. he was tetraplegic. The patient had ankylosing spondylitis with a "bamboo Spine".CT and MRI showed a fracture subluxation at C3-4 with spinal cord injury. . A surgical decompression and arthrodhesis were indicated. The cuus-sp-plro details of the procedure, indications, alternatives, risks and potential complications were fully discussed with the patient's . The patient's fully understood. All her questions were answered. No guarantees were given. She patient voiced requesting the procedure and provided informed consents. She was offered the alternative of delaying the procedure and continuing with nonsurgical management. DETAILS OF THE SURGICAL PROCEDURE The patient was endotracheally intubated and mechanically ventilated. After the induction of general anesthesia, a halo crown was placed, and the patient was given muscle relaxants. he was placed in traction, in an attempt to achieve a closed reduction. The weight in the traction system was systematically increased by 5 lbs each time, attempting to achieve distraction at C3-4. Manual distraction was also attempted using a halo crown. endotracheal intubation was performed. A Lilly catheter, bilateral NATY hose, and sequential compression devices were placed and kept throughout the procedure. The patient was positioned supine on a Dex table with the head over a gel doughnut. All pressure points were carefully padded with egg crate mattress. The eyes were tapped shut after ointment was applied by the anesthesiologist to prevent corneal abrasion. A Neela hugger was placed over the exposed lower body to maintain control of the core body temperature. The electrophysiological team placed the needles and electrodes in their proper location and baseline SSEP's and motor evoked potentials were registered. The anterior cervical region was prepped and draped in the usual sterile fashion. A localizing x-ray was performed with a C-arm. The surgical procedure was performed with the patient in continuous traction in several steps as follow: SURGICAL APPROACH A skin incision was made along the superior cervical crease with a #10 blade. The dissection was carried out through the platysma exposing the sternocleidomastoid muscle. The cervical spine was approached following the fascial layers of the neck just medial to the anterior border of the sternocleidomastoid and carotid sheath by a combination of sharp and dull dissection. The omohyoid muscle was identified and carefully dissected laterally and the deep cervical fascia was carefully opened. The longus colli muscles were retracted to each side of the midline. There was fracture of an anterior syndesmophite and ossified anterior longitudinal ligament with a small prevertebral hematoma. A marker was placed at the disc space C3-4 and a cross- table lateral x-ray performed with a C-arm. SURGICAL DECOMPRESSION In order attempt to decompress the anterior surface of the spinal cord it was necessary to preform a microsurgical resection of the disk. At this point in the procedure the operating microscope was draped in the usual sterile fashion and brought to the field. The rest of the surgical procedure was performed using microdissection technique with the exception of the closure. Under the operative microscopic, a self-retaining retractor was placed underneath the longus colli muscle. The ossified anterior longitudinal ligament was ruptured, and there was gross disruption of the intervertebral disk, with irregular endplates and partially calcified disk. The ruptured calcified anterior longitudinal ligament was removed using a 3mm gold tip thin foot plate kerrison, and a microdiscectomy was iniciated using an angle curette and pituitary forceps. Attempt was made to place distraction pinds in the vertebral body C3 and C4 and attempt distraction of the disk space while the patient still on cervical traction, to correct the subluxation and jumpef facets. This was not possible as the patient's bones were very soften, and the pins "cut" through the vertebral body. An intervertebral body distractor was then applied to th disk space C3-C4 and attempt to distract to correct the sunluxation was unsuccessful, as the patient was very ankylosed, and it was not possible to distract the disk. Attempt was made to gently tap into the vertebral body C4 using a bone impactor , to attempt to reduce the jumped facets, but this was not possible as the bertebral body C4 was softened due to the osteoporotic bone, and the impactor was digging into the vertebral body C4 Under the microscope the microdiscectomy was carried out. This was difficulted by proffuse bleeding, from the disk space. The endplates were then evenly decorticated in preparation for the interbody arthrodhesis INTERBODY ARTHRODHESIS In order to avoid collapse of the disk space and to increase the chances of a successful fusion, it was necessary to place an interbody cage filled with autologous bone. At this point of the procedure, the superior and inferior endplates were then evenly decorticated with a TPS drill. The use of a drill in combination with a curette allowed me to systematically remove the cartilaginous endplates, exposing healthy bone for the interbody arthrodesis. forteen millimeters distraction pins were then placed at the vertebral bodies adjacent to the disk space, and gentle distraction was applied. The size of the interbody cage was then assessed using different size spacers, and a rasp was used to ensure no residual cartilage. A PEEK cage of the appropriate size was selected, and the interbody arthrodesis was then preformed by carefully impacting a 7mm PEEK cage filled with autologous bone graft to the disc space C3 -4. An excellent position of the cage was achieved. This was was confirmed anatomically by feeling the space posterior to the implant and distance to the anterior surface of the dural sac. Radiological confirmation of the position was performed with a cross lateral xray performed with the C-arm. INTERNAL INSTRUMENTAL FIXATION Once that the interbody device was in an appropriate position, it was necessary to stabilize the spine with anterior instrumentation. At this point of the procedure, the distance between the vertebral bodies was carefully measures, and a Simplicity plate was brought to the field and presented in front of the vertebral bodies C3 C4. Fitter'S Assistant holes were then drilled using the TPS drill, and the plate was then secured to the spine using self-drilling, self-tapping screws. Initially, the inferior right screw was inserted, followed by placement of the contralateral upper screw. The remanding screws were sequentially placed in a contra-lateral fashion. A proper purchase was achieved with all screws and the position of the cage, plate and screws, and alignment of the spine was assessed anatomically by direct visualization, and radiologically by performing a cross lateral xray of the cervical spine with the C-arm. CLOSURE The incision was irrigated with several liters of antibiotic solution. Hemostasis was achieved with a bipolar. The screws were locked to prevent backing out. A 7 mm Dex-Herrera drain was left in the prevertebral space and externalized through a separate stab incision. The incision was then closed in layers. 3-0 Vicryl with interrupted sutures was used to close the platysma and subcutaneous tissue. The skin was closed with 4-0 running subcuticular Vicryl and Dermabond was applied. The drain was secured with a 3-0 nylon. At the end of the procedure the sponge, needle and instrument counts were all correct. The estimated blood loss was less than 250 cc. No blood transfusion was given. No intraoperative complications occurred. The patient received prophylactic antibiotics. The patient was then extubated and transferred to the recovery room in stable condition.
[2018-06-22 18:32] LABS: ABG Base Excess -6.5 mmol/L (-2-2); ABG PCO2 35 mmHg (38-42); ABG PO2 269 mmHG (61-120)
[2018-06-22 18:54] LABS: Hematocrit 29.5 % (39.0-51.0); Hemoglobin 10.5 gm/dL (13.0-17.0)
[2018-06-22] MEDS ORDERED: Calcium Chloride Inj 1 GM/10 ML Syringe ONE (19:07)
[2018-06-22] MEDS ORDERED: fentaNYL Citrate Inj 100 MCG/2 ML Ampul ONE (19:14)
--- NOTE | 2018-06-22 19:58 | XR ---
EXAM DATE: 06/22/2018 7:38 PM EDT AGE/SEX: 68 years / Male INDICATIONS: Fusion C3,C4 with screws and plate and halo placement. CLINICAL DATA: This is the patient's subsequent encounter. Patient reports that signs and symptoms h ave been present for 3 days and indicates a pain score of Nonresponsive. MEDICAL/SURGICAL HISTORY: . tRAUMA. Fusion, cervical. COMPARISON: . FINDINGS: Two views of the cervical spine were performed and demonstrate anterior cervical fusion hardware at C 3 and C4 as well as within the lower cervical spine. CONCLUSION: There is post anterior cervical fusion at C3-C4 as well as within the lower cervical spine. Electronically signed by: Francisco Fritz MD 06/22/2018 7:56 PM EDT
--- NOTE | 2018-06-22 20:29 | XR ---
EXAM DATE: 06/22/2018 8:25 PM EDT AGE/SEX: 68 years / Male INDICATIONS: Left central line placement. CLINICAL DATA: This is the patient's initial encounter. Patient reports that signs and symptoms have been present for 2 days and indicates a pain score of Nonresponsive. MEDICAL/SURGICAL HISTORY: . Diabetes mellitus type II. Hypertension. Fusion, cervical. Fusion, cervical. COMPARISON: . FINDINGS: Halo device is noted. An endotracheal tube has its tip 1 cm above the fannie. A left subclavian centr al line has its tip in superior vena cava. No pneumothorax is noted. The heart is mildly prominent. T he lungs are clear. CONCLUSION: 1. Cardiomegaly. 2. No focal infiltrate or pulmonary vascular congestion. 3. No pneumothorax status post placement of left subclavian central line which has its tip in the rodriguez perior vena cava. Electronically signed by: Francisco Fritz MD 06/22/2018 8:28 PM EDT
--- NOTE | 2018-06-22 21:00 | MP ---
cc: Joel Daniel MD DATE OF OPERATION: 06/22/2018 PREOPERATIVE DIAGNOSIS: Quadriplegia fall to the right side, swelling of the right arm, developing compartment syndrome of the right lower arm. POSTOPERATIVE DIAGNOSIS: Quadriplegia fall to the right side, swelling of the right arm, developing compartment syndrome of the right lower arm. OPERATIVE PROCEDURE: Right arm fasciotomy. SURGEON: Joel Daniel MD ANESTHESIA: General. ESTIMATED BLOOD LOSS: About 50 mL. INDICATIONS FOR PROCEDURE: This 68-year-old male developed quadriplegia after falling and sustaining injury to the C3-C4 area. The patient apparently was on the ground for at least 12 hours lying on his right side and hands developed swelling of the right arm and some of the right leg. The patient was placed in the ICU and he was observed for various things including this. Well initially, the patient had good flow to the hand. In the last hour or two prior to surgery, it was noted that the arm was swelling more and the patient was developing compartment syndrome. Clearly, the patient has no sensation, so this makes it somewhat more difficult; however, based on exam and palpation, it was noted that this was firm and while the radial pulse was still present, finger was trying to amadeo. Therefore, the patient was taken to the operating room for the cervical surgery and prior to that, decision was made to perform fasciotomy. DESCRIPTION OF PROCEDURE: The patient was prepped and draped in the usual fashion. Then, the incision was marked with indelible marker and then carried out with a 15 blade starting from around the thenar eminence up over the wrist going somewhat medially to the midline of the volar surface of the arm and then carrying it in a somewhat sweeping fashion up over the forearm length to the elbow and being medially again by the elbow. This was deepened down through the subcutaneous tissue and then fascia. Once this was opened up, the muscle bulges extensively. The area was irrigated with copious amounts of saline. Meticulous hemostasis was obtained and wound VAC applied. The patient tolerated the procedure well. MD SHIRIN Aguero/katlyn , 08:17 PM , 08:24 PM
[2018-06-22 21:05] LABS: Hematocrit 31.2 % (39.0-51.0); Hemoglobin 10.6 gm/dL (13.0-17.0); Mean Corpuscular HGB Conc 34.1 % (32.0-36.0); Mean Corpuscular Hemoglobin 32.1 pg (27.0-34.0); Mean Corpuscular Volume 94.4 fL (80.0-100.0); Mean Platelet Volume 8.5 fL (7.0-11.0); Platelet Count 196 th/mm3 (150-450); White Blood Count 12.3 th/mm3 (4.0-11.0)
--- NOTE | 2018-06-22 21:17 | US ---
EXAM DATE: 06/22/2018 9:11 PM EDT AGE/SEX: 68 years / Male INDICATIONS: Right leg swelling. Patient fell at home and laid on the right side until help arrived . CLINICAL DATA: This is the patient's initial encounter. Patient reports that signs and symptoms have been present for 1 day and indicates a pain score of Nonresponsive. MEDICAL/SURGICAL HISTORY: . Diabetic. Hyperlipidemia. HTN. Neck injury. Paralysis. . C-spi ne fusion. COMPARISON: . TECHNIQUE: Venous ultrasound of both lower extremities was performed from the inguinal ligament to t he proximal calf. Real-time, color Doppler and spectral tracing, compression and augmentation techni ques were used. FINDINGS: Normal compression of the deep venous system from the inguinal region to the proximal calf . No echogenic clot is seen. Normal response of the venous system to augmentation and respiration. CONCLUSION: 1. No evidence of deep venous thrombosis within the right lower extremity. Electronically signed by: Francisco Fritz MD 06/22/2018 9:15 PM EDT
[2018-06-22 21:57] LABS: Calcium 7.5 mg/dL (8.5-10.1); Carbon Dioxide 18.1 meq/L (21.0-32.0); Potassium 5.5 meq/L (3.5-5.1)
[2018-06-22] MEDS: Chlorhexidine 0.12% Oral Kit 15 ML UDC OROPHARYNG SCH (22:33)
[2018-06-23] MEDS ORDERED: Propofol 1000 mg/100 ml Inj 1,000 MG/100 ML BOTTLE IV.CONT PRN (00:02)
[2018-06-23] MEDS: Oral Hygiene Kit OROPHARYNG SCH ×4 (02:46→18:23)
[2018-06-23] MEDS: ceFAZolin Inj 2,000 MG in Sodium Chlor 0.9% Inj 100 ML IV.SIG SCH ×3 (02:46→19:29)
[2018-06-23] MEDS: Senna/Docusate Sodium 8.6/50 MG Tablet PO SCH ×4 (02:47→20:27)
[2018-06-23] MEDS: Midazolam 50 MG/50 ML Inj 50 MG/50 ML BAG IV.CONT PRN (02:54)
[2018-06-23] MEDS: fentaNYL 10 mcg/mL Premix Drip 2,500 MCG/250 ML BAG IV.SIG PRN (02:55)
[2018-06-23] MEDS ORDERED: Chlorhexidine Gluconate 2% 1 Pack (2 Cloths) TOPICAL PRN (04:00)
--- NOTE | 2018-06-23 05:24 | XR ---
EXAM DATE: 06/23/2018 5:17 AM EDT AGE/SEX: 68 years / Male INDICATIONS: Shortness of breath. CLINICAL DATA: This is the patient's subsequent encounter. Patient reports that signs and symptoms h ave been present for 3 days and indicates a pain score of Nonresponsive. MEDICAL/SURGICAL HISTORY: . Diabetes mellitus type II. Hypertension. Fusion, cervical. COMPARISON: [facility], CHEST 1V SINGLE AP, 06/22/2018. . FINDINGS: Portable AP view of the chest demonstrates a normal-sized cardiac silhouette. ETT and left subclavian central line remain present. EKG lines overlie the patient and hardware from the halo device overlie s the patient. Lungs are underinflated and there is mild opacity at the left lung base with partial o bscuration of the hemidiaphragm. No pneumothorax is seen. CONCLUSION: Stable chest x-ray with nonspecific mild left basilar opacity representing either atelectasis, consol idation, and/or effusion. Electronically signed by: Tommie Merino MD 06/23/2018 5:22 AM EDT
[2018-06-23 05:35] LABS: Hematocrit 31.1 % (39.0-51.0); Hemoglobin 10.5 gm/dL (13.0-17.0); Lymph # (Auto) 0.7 th/mm3 (1.0-4.8); Lymph % (Auto) 4.9 % (9.0-44.0); Mean Corpuscular HGB Conc 33.7 % (32.0-36.0); Mean Corpuscular Hemoglobin 31.5 pg (27.0-34.0); Mean Corpuscular Volume 93.5 fL (80.0-100.0); Mean Platelet Volume 8.5 fL (7.0-11.0); Mono % (Auto) 6.8 % (0.0-8.0); Neut # (Auto) 13.1 th/mm3 (1.8-7.7); Neut % (Auto) 88.3 % (16.0-70.0); Platelet Count 200 th/mm3 (150-450); Red Blood Count 3.32 mil/mm3 (4.50-5.90); Red Cell Distribution Width 15.7 % (11.6-17.2); White Blood Count 14.8 th/mm3 (4.0-11.0)
[2018-06-23 05:58] LABS: ABG PCO2 19 mmHg (38-42); ABG PO2 155 mmHg (61-120)
[2018-06-23 06:03] LABS: Albumin 1.8 g/dL (3.4-5.0); Carbon Dioxide 18.1 meq/L (21.0-32.0); Total Protein 5.8 g/dL (6.4-8.2)
[2018-06-23] MEDS: Sod Chloride 0.9% Inj 1,000 ML IV.CONT SCH ×2 (06:15→07:43)
[2018-06-23] MEDS: Chlorhexidine Gluconate 2% 1 Pack (2 Cloths) TOPICAL SCH (06:18)
[2018-06-23] MEDS: Norepinephrine Inj 4 MG in Sodium Chlor 0.9% Inj 246 ML IV.SIG PRN ×2 (07:00→19:40)
[2018-06-23] MEDS: Sod Chloride 0.9% Inj 1,000 ML IV.SIG SCH ×2 (07:43→19:30)
[2018-06-23] MEDS: Chlorhexidine 0.12% Oral Kit 15 ML UDC OROPHARYNG SCH ×2 (09:24→19:31)
[2018-06-23] MEDS: Pantoprazole Inj 40 MG Vial IV.PUSH SCH (09:25)
[2018-06-23] MEDS ORDERED: Sod Chloride 0.9% Inj 1,000 ML IV.SIG SCH ×2 (10:00→14:30)
[2018-06-23] MEDS ORDERED: Hypromellose 0.3% Opth Gel 10 GM Bottle EACH EYE PRN (11:10)
--- NOTE | 2018-06-23 11:24 | P.PNCC ---
Subjective Brief History: This 68-year-old male was brought in as a trauma alert around 1:30 a.m. The patient apparently fell around noon at home. Was lying on his right side, unable to move for about 12 hours until a friend came to check on him. The patient was then transferred to our institution. He is noted to be paralyzed from the neck down, although on arrival, he is awake and alert, somewhat hypertensive. On arrival [place] coma scale is 15. The patient is awake, alert and oriented. His breathing is intact. Patient has no sensation or motion in upper or lower extremities. Deep tendon reflexes are not present. The patient is fairly flaccid. PAST MEDICAL HISTORY: Diabetes, hyperlipidemia, hypertension. Previous neck injury for patient with a fusion at the C5-C6 level, surgical history of spinal fusion. Final injuries detected The patient with a C3-C4 over C4 retrolisthesis and spinal compression. The patient will be placed in the ICU, rehydrated and monitored carefully. This patient may worsen over the next 24- 48 hours and require intubation, but right now the patient is awake and alert and intubation is not necessary. Neurosurgery is to see the patient as well. 24 Hour Review/Hospital Course: 06/22/2018 Neurologically alert and oriented and mildly sedated with Versed and fentanyl complaining about neck pain Hemodynamically now stable Required initially small dose dopamine to exert chronotropic and vasoactive effects I find Dopamine to be an ideal drug for patients with neurogenic shock Throughout the night patient was initially awake alert and oriented and in started developing more symptoms of neurogenic shock as it was expected Patient developed transitory hypotension and then periods of bradycardia and probably developed hypercapnia in the process becoming more somnolent. After the period of bradycardia patient was immediately emergently intubated and ventilated Postintubation bilateral breath sounds with good PO2 FiO2 gradient in good position of endotracheal tube PCO2 had normalized nonetheless I believe patient did have hypercarbia at the time of intubation Mentally he fully recovered he is aphasic alert and following commands about an hour after intubation Patient will undergo MRI of the C-spine followed by surgical decompression As noted in the history patient was laying on his side for about 12 hours and he has significant swelling of the right side and the right arm. Patient has good proximal pulses and distal radial pulse on palpation and ulnar by Doppler Capillary refill is intact Patient will be watched very carefully for development of increased swelling which could lead to compartment syndrome and ischemia of the hand 06/23/2018 Patient is obtunded today. He underwent surgical decompression and fixation with a halo yesterday as well as a right upper extremity fasciotomy for compartment syndrome. CT scan of the head is pending regarding the new clinical neurologic finding. Objective Vital Signs / I&O: Vital Signs 06/22/18 11:38 06/22/18 19:26 06/22/18 20:00 Temperature 99.3 F Pulse Rate 64 Respiratory Rate 18 18 Blood Pressure 158/72 H Pulse Oximetry 100 100 100 06/23/18 00:00 06/23/18 01:12 06/23/18 04:00 Temperature 98.4 F 97.5 F L Pulse Rate 62 62 Respiratory Rate 18 18 18 Blood Pressure 124/62 118/62 Pulse Oximetry 100 100 100 06/23/18 04:06 06/23/18 07:59 06/23/18 08:00 Temperature 97.2 F L Pulse Rate 60 Respiratory Rate 18 14 14 Blood Pressure 121/60 Pulse Oximetry 100 100 100 06/23/18 09:00 Temperature Pulse Rate 60 Respiratory Rate Blood Pressure Pulse Oximetry Intake & Output 06/22/18 06/23/18 06/23/18 18:59 06:59 18:59 Intake Total 4000 / 4000 420 / 420 1000 / 1000 Output Total 850 / 850 550 / 550 Balance 3150 / 3150 -130 / -130 1000 / 1000 Weight 111.4 kg Intake: IV 1000 / 1000 420 / 420 1000 / 1000 Versed Inj 50 mg In 50 ml @ 2 50 / 50 MG/HR 2 mls/hr IV.CONT TITRATE PRN Rx#:[id number] NS Inj 1,000 ML @ 100 mls/hr IV 1000 / 1000 .CONT .Q10H BISI Rx#:[id number] NS Inj 1,000 ML @ 80 mls/hr IV. 1000 / 1000 SIG .[id number] BISI Rx#:[id number] Ancef Inj 2,000 MG In NS Inj 120 / 120 100 ML @ 100 mls/hr IV.SIG Q8H BISI Rx#:[id number] fentaNYL 10 mcg/mL Premix Drip 250 / 250 2,500 mcg In 250 ml @ 50 MCG/HR 5 mls/hr IV.SIG TITRATE PRN Rx #:[id number] Oral 0 / 0 Anesthesia Amount 3000 / 3000 Output: Estimated Blood Loss 250 / 250 Urine Amount (Catheter) 600 / 600 300 / 300 Indwelling Urethral Catheter 600 / 600 300 / 300 Wound Vac Amount 250 / 250 Right Arm 250 / 250 Other: Mode Setting Right Forehead Continuous Continuous # Bowel Movements 0 Result Diagrams: 06/24/18 04:35 06/24/18 04:35 Imaging: Impressions Cervical Spine X-Ray 06/22/18 00:00 CONCLUSION: There is post anterior cervical fusion at C3-C4 as well as within the lower cervical spine. Venous Doppler Study 06/22/18 00:00 CONCLUSION: 1. No evidence of deep venous thrombosis within the right lower extremity. Cervical Spine MRI 06/22/18 06:40 CONCLUSION: 1. Fracture at C3 with retrolisthesis compressing the cord causing severe canal stenosis. 2. Edema within the cord from C2 to C5. Thoracic Spine MRI 06/22/18 06:41 CONCLUSION: 1. Kyphosis without compression deformity. 2. Left-sided protrusion at T9-10 without canal stenosis. There is narrowing of the left lateral recess. 3. Asymmetric left-sided disc bulge T10-11. Lumbar Spine MRI 06/22/18 06:42 CONCLUSION: 1. Multilevel disc bulges. 2. No compression fracture. Chest X-Ray 06/22/18 19:32 CONCLUSION: 1. Cardiomegaly. 2. No focal infiltrate or pulmonary vascular congestion. 3. No pneumothorax status post placement of left subclavian central line which has its tip in the superior vena cava. Chest X-Ray 06/23/18 06:00 CONCLUSION: Stable chest x-ray with nonspecific mild left basilar opacity representing either atelectasis, consolidation, and/or effusion. Disinhibition Score: 14.00 Aggression Score: 14.00 Lability Score: 14.00 Agitated Behavior Total Score: 14 - Exam [employer]: Patient does not follow commands, pupils are nonreactive Hemodynamic/Cardiac: Regular rate and rhythm Pulmonary/Respiratory: Clear to auscultation bilaterally Abdomen/GI Nutrition: Soft nontender nondistended Renal/I&O: Acute kidney injury with elevated BUN and creatinine Assessment and Plan Plan: CT scan of the brain is pending due to the patient's change in mental status. His and primary care physician are actively involved in his care and they are adamant that he would not wish to persist like this. Await results of the CT scan and family meeting to determine further course of action regarding potential withdrawal of care versus long-term care placement following a tracheostomy and feeding tube placement 45 minutes critical care time
--- NOTE | 2018-06-23 11:27 | P.OP ---
Preoperative Diagnosis: Ankylosing spondylitis, unstable C3-4 fracture Postoperative Diagnosis: Ankylosing spondylitis, unstable C3-4 fracture Date of procedure: 06/22/18 Anesthesia: DEEPAKA Surgeon: Daniele Lopez MD Operation and Findings: INDICATIONS The patient is a 68-year-old male who suffered a fall and presented with tetraplegia related to a C3-4 fracture subluxation. The fractures were unstable. Placement of halo brace was indicated. I have discussed with his the [id number] details of the procedure, its indications, alternatives, risks and potential complications with the patient including but not limited to the risk of infection, hemorrhage, paralysis, stroke, heart attack, even vegetative state or even the possibility of . She fully understood. All her questions were answered. No guarantees were given. She voiced requesting the procedure and provided informed consent. She has been offered the alternative of not aggressive management. DETAILS OF THE SURGICAL PROCEDURE The entire procedure was performed with the patient wearing a Jennings J hard cervical collar and the cervical spine in a neutral position. Whenever movement was indicated, the patient was carefully log-rolled awake. Initially the patient was log-rolled and a vest was placed on the patient's thorax. The vest was tightly secured. Then keeping the head in a neutral position, the bilateral parieto-occipital area was shaved and prepped with Betadine. The bilateral frontal area was prepped with Betadine. 1% lidocaine was used to numb the skull. A halo was brought to the patient's head and carefully secured in a symmetrical position using the torque wrench calibrated at the pressure of 8 pounds per square foot. Once all pins were secured to the patient's skull, four posts were used to connect the halo to the vest and all the connections secured with a torque wrench. The patient's cervical spine was kept in a neutral position. X-ray of the cervical spine was ordered at the end of the procedure. The patient tolerated the procedure well. There were no intraoperative complications.
--- NOTE | 2018-06-23 14:25 | P.PNNS ---
Subjective Interval history: 06/23: s/p C3-4 anterior cervical discectomy, interbody arthodhesis and placement of halo brace yesterday, intubated, currently off sedation, pupils unequal, pt unresponsive. <Patricia Storey - Last Filed: 06/23/18 14:12> Physical Exam Vital signs: Vital Signs 06/22/18 19:26 06/22/18 20:00 06/23/18 00:00 Temperature 99.3 F 98.4 F Pulse Rate 64 62 Respiratory Rate 18 18 18 Blood Pressure 158/72 H 124/62 Pulse Oximetry 100 100 100 06/23/18 01:12 06/23/18 04:00 06/23/18 04:06 Temperature 97.5 F L Pulse Rate 62 Respiratory Rate 18 18 18 Blood Pressure 118/62 Pulse Oximetry 100 100 100 06/23/18 07:59 06/23/18 08:00 06/23/18 09:00 Temperature 97.2 F L Pulse Rate 60 60 Respiratory Rate 14 14 Blood Pressure 121/60 Pulse Oximetry 100 100 06/23/18 12:00 06/23/18 12:03 Temperature 96.8 F L Pulse Rate 56 L Respiratory Rate 14 14 Blood Pressure 118/63 Pulse Oximetry 100 100 Intake & Output 06/22/18 06/23/18 06/23/18 18:59 06:59 18:59 Intake Total 4000 / 4000 420 / 420 1120 / 1120 Output Total 850 / 850 550 / 550 Balance 3150 / 3150 -130 / -130 1120 / 1120 Weight 111.4 kg Intake: IV 1000 / 1000 420 / 420 1120 / 1120 Versed Inj 50 mg In 50 ml @ 2 50 / 50 MG/HR 2 mls/hr IV.CONT TITRATE PRN Rx#:[id number] NS Inj 1,000 ML @ 100 mls/hr IV 1000 / 1000 .CONT .Q10H BISI Rx#:[id number] NS Inj 1,000 ML @ 80 mls/hr IV. 1000 / 1000 SIG .[id number] BISI Rx#:[id number] Ancef Inj 2,000 MG In NS Inj 120 / 120 120 / 120 100 ML @ 100 mls/hr IV.SIG Q8H BISI Rx#:[id number] fentaNYL 10 mcg/mL Premix Drip 250 / 250 2,500 mcg In 250 ml @ 50 MCG/HR 5 mls/hr IV.SIG TITRATE PRN Rx #:[id number] Oral 0 / 0 Anesthesia Amount 3000 / 3000 Output: Estimated Blood Loss 250 / 250 Urine Amount (Catheter) 600 / 600 300 / 300 Indwelling Urethral Catheter 600 / 600 300 / 300 Wound Vac Amount 250 / 250 Right Arm 250 / 250 Other: Mode Setting Right Forehead Continuous Continuous # Bowel Movements 0 Narrative: GENERAL: Intubated, currently without sedation. SKIN: Warm and dry. HEAD: Normocephalic. Pin sites x 4 clean and dry. EYES: No scleral icterus. No injection or drainage. NECK: immobilized by halo brace, wound with Optifoam dressing, TRICE drain in place. CARDIOVASCULAR: regular rate and rhythm RESPIRATORY: mechanically ventilated GASTROINTESTINAL: Abdomen soft, non-tender, nondistended. MUSCULOSKELETAL: No cyanosis, or edema. NEURO: comatose, no sedation. does not open eyes, not following commands. Right pupils 7-8 mm nonreactive, left pupil 5-6 mm nonreactive, very minimal corneal reflexes bilaterally. b/l Babinski response, and mild flexion left lower leg to noxious stimuli, no response in the upper extremities. - Urinary Catheter Management Indwelling Urethral Catheter Cath placed during this visit: yes Reason for continuing: Hourly intake/output Insertion date: 06/22/18 Insertion time: 06:00 <Patricia Storey - Last Filed: 06/23/18 14:12> Vital signs: Vital Signs 06/24/18 10:15 06/24/18 10:30 06/24/18 10:45 Temperature Pulse Rate 59 L 59 L 59 L Respiratory Rate 14 14 14 Blood Pressure 105/45 L 105/46 L 104/45 L Pulse Oximetry 100 100 100 06/24/18 11:00 06/24/18 11:15 06/24/18 11:30 Temperature Pulse Rate 59 L 58 L 58 L Respiratory Rate 14 0 L 0 L Blood Pressure 105/45 L Pulse Oximetry 100 100 100 06/24/18 11:45 06/24/18 12:00 06/24/18 12:15 Temperature 97.5 F L Pulse Rate 58 L 58 L 58 L Respiratory Rate 0 L 0 L 0 L Blood Pressure 106/46 L Pulse Oximetry 99 100 100 06/24/18 13:00 06/24/18 14:00 06/24/18 16:00 Temperature 96.3 F L Pulse Rate 58 L 65 59 L Respiratory Rate 0 L 14 14 Blood Pressure 102/49 L 132/59 L Pulse Oximetry 100 100 100 06/24/18 17:25 06/24/18 20:00 06/24/18 20:10 Temperature 97.6 F Pulse Rate 58 L Respiratory Rate 14 14 14 Blood Pressure 111/50 L Pulse Oximetry 100 100 100 06/24/18 23:07 06/25/18 00:00 06/25/18 03:27 Temperature 94.2 F L Pulse Rate 56 L Respiratory Rate 14 14 14 Blood Pressure 132/58 L Pulse Oximetry 100 100 100 06/25/18 04:00 06/25/18 08:27 Temperature 95.0 F L Pulse Rate 57 L Respiratory Rate 14 12 Blood Pressure 121/55 L Pulse Oximetry 100 100 Intake & Output 06/24/18 06/25/18 06/25/18 18:59 06:59 18:59 Intake Total 1043 / 1043 1250 / 1250 1000 / 1000 Output Total 650 / 650 1305 / 1305 Balance 393 / 393 -55 / -55 1000 / 1000 Weight 104.8 kg Intake: IV 1043 / 1043 1250 / 1250 1000 / 1000 Versed Inj 50 mg In 50 ml @ 2 19 / 19 MG/HR 2 mls/hr IV.CONT TITRATE PRN Rx#:[id number] Levophed Inj 4 MG In NS Inj 246 250 / 250 ML @ 2 MCG/MIN 7.5 mls/hr IV. SIG TITRATE PRN Rx#:[id number] NS Inj 1,000 ML @ 100 mls/hr IV 1000 / 1000 1000 / 1000 1000 / 1000 .SIG .Q10H BISI Rx#:[id number] fentaNYL 10 mcg/mL Premix Drip 24 / 24 2,500 mcg In 250 ml @ 50 MCG/HR 5 mls/hr IV.SIG TITRATE PRN Rx #:[id number] Oral 0 / 0 Output: Urine Amount (Catheter) 650 / 650 1300 / 1300 Indwelling Urethral Catheter 650 / 650 1300 / 1300 Wound Drainage 5 / 5 # 1 Anterior Neck 5 / 5 Other: # Bowel Movements 0 0 - Urinary Catheter Management Indwelling Urethral Catheter Cath placed during this visit: no <Daniele Lopez - Last Filed: 06/25/18 10:05> Assessment and Plan - Plan Impression: 68 year old male with a C3-C4 traumatic fracture subluxation with spinal cord injury and completed tetraplegia s/p C3-4 anterior cervical discectomy, interbody arthrodesis using PEEK cage filled with autologous bone graft, Simplicity plate and screws, placement of halo brace 06/22/18 neuro exam today with unequal pupils dilated and fixed Plan: CT Brain today cont neuro checks start pin care critical care management per trauma team Dr. Lopez dw over the phone <Patricia Storey - Last Filed: 06/23/18 14:12>
--- NOTE | 2018-06-23 15:08 | CT ---
EXAM DATE: 06/23/2018 2:57 PM EDT AGE/SEX: 68 years / Male INDICATIONS: Halo placement yesterday. Now with decreased mental status, unequal pupils. CLINICAL DATA: This is the patient's initial encounter. Patient reports that signs and symptoms have been present for 2 days and indicates a pain score of Nonresponsive. MEDICAL/SURGICAL HISTORY: Diabetes. Hyperparathyroidism. None. RADIATION DOSE: 56.35 CTDI (mGy) COMPARISON: [facility] [place], CT HEAD W/O CONTRAST, 06/22/2018. . TECHNIQUE: CT of the head without contrast. Using automated exposure control and adjustment of the mA and/or kV according to patient size, radiation dose was kept as low as reasonably achievable to ob tain optimal diagnostic quality images. DICOM format image data is available electronically for revi ew and comparison. FINDINGS: The halo device generates beam hardening artifact significantly limiting the study. There has been in terval development of an acute intraparenchymal hemorrhage involving the left temporal lobe with smal l component of left subdural hemorrhage tracking over the top of the left tentorium. None of the hazy low anchoring devices traverse the calvarium. They are touching the external table of the calvarium without traversal into the intracranial contents. There is low attenuation change involving the cereb ellar hemispheres bilaterally but more pronounced on the left. This is partially obscured by the beam hardening artifact. Similar findings are seen involving the left occipital lobe. These findings are concerning for acute infarctions involving the posterior cerebral territory on the left. CONCLUSION: 1. Interval development of intraparenchymal and subdural hemorrhage involving the left temporal lobe tracking over the tentorium. 2. 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 3. Study is limited by the artifact generated from the halo. . Electronically signed by: Ant Bird MD 06/23/2018 3:07 PM EDT
--- NOTE | 2018-06-23 15:11 | P.CONPAL ---
Consult Service: Palliative Care Requesting Physician: Sherri Zaidi Reason for Consult: a. To assist with evaluation and management of symptoms including: pain. b. To assist medical decision maker(s) with: better understanding of current medical conditions; weighing benefits/burdens of medical treatment options; making medical treatment decisions. Primary Care Provider: Dr. Meng Modi History of Present Illness History of Present Illness: Mr. Kevin is a 68 year old male with past medical history of diabetes, hyperlipidemia and hypertension. Patient presented to [facility] emergency department on 06/22/18 after a fall at home. He was found about 12 hours after the fall by a friend who came to check on him. He was found on the floor lying on his right side, unable to move. EMS was called and he was transferred to [place] as a trauma alert. Upon arrival to the emergency department he was awake, alert and oriented, GCS 15. He had no sensation, no motion of upper or lower extremities and no deep tendon reflexes. Evaluation revealed: * Cervical Spine X-Ray:post anterior cervical fusion at C3-C4 as well as within the lower cervical spine. * Chest CT: No acute abnormality is identified within the chest. * Venous Doppler Study: No evidence of deep venous thrombosis within the right lower extremity. * Pelvis X-ray: No acute pelvis abnormality is identified. * Abdomen/Pelvis CT: No acute traumatic injury is identified within the abdomen or pelvis, moderate to severe atherosclerotic disease. * Cervical Spine CT: fracture involving the left C3 transverse process and likely pedicle, retrolisthesis of C3 on C4 which is suspected to be acute given the break in the anterior vertebral osteophytes at this level. 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 There is also asymmetric widening of the right C3-C4 facet joint. The severe spinal canal stenosis likely explains the clinical findings. Otherwise, multilevel degenerative change. * Lumbar Spine CT: No acute lumbar spine injury is identified. There are degenerative changes throughout the lumbar spine consisting primarily of facet arthrosis with likely mild spinal canal narrowing at L2-L3 and L3-L4. * Thoracic Spine CT: Accentuated thoracic kyphosis with multilevel degenerative change. No fracture or acute thoracic spine abnormality is identified. Patient was admitted to surgical ICU with C3-C4 over C4 retrolisthesis and spinal compression. He was initially alert and oriented and able to protect his airway. Overnight, he developed symptoms of neurogenic shock including hypotension and bradycardia and hypercapnia. He required emergent intubation and was placed on mechanical ventilation. About an hour after intubation he was still following simple commands. Additional imaging: * Cervical Spine MRI: Fracture at C3 with retrolisthesis compressing the cord causing severe canal stenosis, edema within the cord from C2 to C5. * Thoracic Spine MRI: Kyphosis without compression deformity, left-sided protrusion at T9-10 without canal stenosis, narrowing of the left lateral recess, asymmetric left-sided disc bulge T10-11. * Lumbar Spine MRI: Multilevel disc bulges, no compression fracture. Neurosurgery, Dr. Lopez was consulted. On 06/22/18, patient underwent C3-4 anterior cervical discectomy, interbody arthodhesis using PEEK cage filled with autologous bone graft, plate and screws and Halo brace placement. He also developed compartment syndrome of right upper extremity and underwent right arm fasciotomy. Patient remains intubated on mech vent. He is off all sedation and is unresponsive. Pupils unequal. CT head revealed interval development of intraparenchymal and subdural hemorrhage involving the left temporal lobe tracking over the tentorium, large area of infarction involving the left posterior cerebral artery territory, study is limited by the artifact generated from the halo. Palliative care was consulted to assist with communication and further clarification of goals of medical treatment in this unfortunate gentleman with poor prognosis. Family meeting arranged with who remains in rehab for her personal health related issues on 06/24/18 between 9:30-10am. Function/Cognitive Trajectory: Patient was living at home prior to admission. His was in rehab. He has reportedly had recent frequent falls. 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 Kindcaid is not a smoker.) - Alcohol History How Often Do You Have a Drink Containing Alcohol: 2 to 4 times a month (Seldom social drinker) - Substance Use History Substance History: No History of Abuse Medications and Allergies Allergies Allergy/AdvReac Type Severity Reaction Status Date / Time codeine Allergy Severe Unknown Verified 06/23/18 13:21 pantoprazole [From Protonix] Allergy Severe Unknown. Verified 06/23/18 13:21 Sulfa (Sulfonamide Allergy Severe unknown Verified 06/23/18 13:21 Antibiotics) Active Medications: Active Medications Al Hydroxide/Mg Hydroxide (Milk Of Magnesia Liq) 30 ml PO BID [facility] Last Admin: 06/23/18 09:24 Dose: Not Given Al Hydroxide/Mg Hydroxide (Milk Of Magnesia Liq) 30 ml PO Q12H PRN PRN Reason: Mild Constipation Artificial Tears (Genteal Severe Dry Eye Relief 0.3% Opth Gel) 1 drops EACH EYE Q6H PRN PRN Reason: DRY EYE(S) Bisacodyl (Dulcolax Supp) 10 mg RECTAL DAILY PRN PRN Reason: SEVERE CONSITIPATION Chlorhexidine Gluconate (Chlorhexidine 2% Cloth) 3 pack TOPICAL DAILY@0400 PRN PRN Reason: Extra cloth needed Stop: 06/28/18 03:59 Chlorhexidine Gluconate (Chlorhexidine 2% Cloth) 3 pack TOPICAL DAILY@0400 [facility] Stop: 06/28/18 03:59 Last Admin: 06/23/18 06:18 Dose: 3 pack Chlorhexidine Gluconate (Peridex 0.12% Oral Kit) 15 ml OROPHARYNG BID@0800, 2000 [facility] Last Admin: 06/23/18 09:24 Dose: 15 ml Dextrose (D50w Vial) 50 ml IV.PUSH UNSCH PRN PRN Reason: PER HYPOGLYCEMIA PROTOCOL Dopamine HCl/Dextrose (Dopamine 400 Mg/250 Ml Premix) 400 mg in 250 mls @ 11.745 mls/hr IV.CONT TITRATE PRN; Protocol PRN Reason: PER PROTOCOL Last Titration: 06/23/18 14:27 Dose: Infused Midazolam HCl (Versed Inj) 50 mg in 50 mls @ 2 mls/hr IV.CONT TITRATE PRN; Protocol PRN Reason: Per Protocol Last Titration: 06/23/18 07:43 Dose: 0 mg/hr, 0 mls/hr Fentanyl (Fentanyl 10 Mcg/Ml Premix Drip) 2,500 mcg in 250 mls @ 5 mls/hr IV.SIG TITRATE PRN; Protocol PRN Reason: Per Protocol Last Titration: 06/23/18 07:43 Dose: 0 mcg/hr, 0 mls/hr Insulin Human Regular 100 unit (/ Sodium Chloride) 100 mls @ 0 mls/hr IV.CONT TITRATE PRN; Protocol PRN Reason: See protocol Last Titration: 06/23/18 14:26 Dose: 3 units/hr, 3 mls/hr Cefazolin Sodium 2,000 mg/ (Sodium Chloride) 120 mls @ 100 mls/hr IV.SIG Q8H [facility] Stop: 06/23/18 20:11 Last Infusion: 06/23/18 14:04 Dose: Infused Propofol (Diprivan 1000 Mg/100 Ml Inj) 1,000 mg in 100 mls @ 3.132 mls/hr IV.CONT TITRATE PRN; Protocol PRN Reason: Per Protocol Norepinephrine Bitartrate 4 mg (/ Sodium Chloride) 250 mls @ 7.5 mls/hr IV.SIG TITRATE PRN; Protocol PRN Reason: Per Protocol Last Admin: 06/23/18 07:00 Dose: 2 mcg/min, 7.5 mls/hr Sodium Chloride (Ns Inj) 1,000 mls @ 250 mls/hr IV.SIG .Q4H [facility] Stop: 06/23/18 18:29 Last Admin: 06/23/18 14:00 Dose: 250 mls/hr Sodium Chloride (Ns Inj) 1,000 mls @ 100 mls/hr IV.SIG .Q10H [facility] Lactulose (Lactulose Liq) 30 ml PO DAILY PRN PRN Reason: CONSTIPATION Pantoprazole Sodium (Protonix Inj) 40 mg IV.PUSH DAILY [facility] Last Admin: 06/23/18 09:25 Dose: 40 mg Senna/Docusate Sodium (Rika-Colace) 1 tab PO BID [facility] Last Admin: 06/23/18 09:24 Dose: Not Given Sennosides (Senokot) 17.2 mg PO Q12H PRN PRN Reason: Moderate Constipation Sodium Chloride (Ns Flush) 2 ml IV.FLUSH UNSCH PRN PRN Reason: FLUSH AFTER USING IV ACCESS Terbutaline Sulfate (Brethine Inj) 1 mg SQ UNSCH PRN PRN Reason: Extravasation Terbutaline Sulfate (Brethine Inj) 1 mg SQ UNSCH PRN PRN Reason: For Extravasation Advance Directives Living Will: Yes (Requested Copy) Healthcare Surrogate: Yes (Requested Copy. reported HCS) Health Care Surrogate Name and Number: Krystle Kevin, : [phone] Today's verbally stated goals: Patient is not capacitated to make his own health care decisions, do not expect he will regain capacity. Family/friends goals: Family meeting arranged 06/24/18 around 9:30-10am. Ethical and Legal Issues: Patient is not capacitated to make his own health care decisions, not expected to regain capacity. Has Living Will. Designated health care surrogate is reportedly his spouse, Krystle Kevin. Copy of Advance Directives requested. Physical Exam Vital Signs: Vital Signs - 24 hr 06/22/18 19:26 06/22/18 20:00 06/23/18 00:00 Temperature 99.3 F 98.4 F Pulse Rate 64 62 Respiratory Rate 18 18 18 Blood Pressure 158/72 H 124/62 Pulse Oximetry 100 100 100 06/23/18 01:12 06/23/18 04:00 06/23/18 04:06 Temperature 97.5 F L Pulse Rate 62 Respiratory Rate 18 18 18 Blood Pressure 118/62 Pulse Oximetry 100 100 100 06/23/18 07:59 06/23/18 08:00 06/23/18 09:00 Temperature 97.2 F L Pulse Rate 60 60 Respiratory Rate 14 14 Blood Pressure 121/60 Pulse Oximetry 100 100 06/23/18 12:00 06/23/18 12:03 06/23/18 15:00 Temperature 96.8 F L Pulse Rate 56 L Respiratory Rate 14 14 Blood Pressure 118/63 Pulse Oximetry 100 100 100 I&O: Intake & Output 06/21/18 06/22/18 06/23/18 06/24/18 06:59 06:59 06:59 06:59 Intake Total 1000 / 1000 4420 / 4420 2620 / 2620 Output Total 1400 / 1400 Balance 1000 / 1000 3020 / 3020 2620 / 2620 Weight 104.4 kg 111.4 kg Physical Exam: CONSTITUTIONAL/GENERAL: This is an adequately nourished patient, unresponsive off sedation on mech vent. TUBES/LINES/DRAINS: Halo brace, ETT, anterior neck TRICE drain, left subclavian central line, PIV left FA, right arm dressing, Lilly, SCDs. SKIN: Generalized pallor. Ecchymoses on left UE, right arm dressing in place. Wounds on left and right foot, not visualized by me today. Skin temperature cold. HEAD: Halo brace in place. EYES: Pupils unequal, fixed. ENT: Unable to assess hearing. Nose without bleeding or purulent drainage. Throat difficult to visualize due to ETT. NECK: TRICE drain left anterior neck (serosanguineous drainage noted) with dressing in place, clean and dry. Trachea midline. CARDIOVASCULAR: Regular rate and rhythm without murmurs, gallops, or rubs. RESPIRATORY/CHEST: Unlabored respirations on mech vent. Diminishes breath sounds bilaterally. GASTROINTESTINAL: Abdomen protuberant. Bowel sounds hypoactive. GENITOURINARY: Without palpable bladder distension. Lilly catheter in place. MUSCULOSKELETAL: Extremities with edema. Cold to touch. LYMPHATICS: Not examined. NEUROLOGICAL: Unresponsive, off sedation. PSYCHIATRIC: Unresponsive, off sedation. Diagnostic Tests Laboratory: Laboratory Results - last 72 hr 06/22/18 06/22/18 06/22/18 00:51 00:51 00:51 WBC 9.7 RBC 3.73 L Hgb 11.9 L POC Hgb (Calc) Hct 35.2 L POC Hct MCV 94.5 MCH 31.8 MCHC 33.7 RDW 15.6 Plt Count 220 MPV 7.7 Neut % (Auto) 87.2 H Lymph % (Auto) 7.0 L Mitchell % (Auto) 5.6 Eos % (Auto) 0.1 Baso % (Auto) 0.1 Neut # (Auto) 8.4 H Lymph # (Auto) 0.7 L Mitchell # (Auto) 0.5 Eos # (Auto) 0.0 Baso # (Auto) 0.0 WBC Differential . Differential Comment Auto diff final PT 12.2 H INR 1.2 APTT 24.4 Fibrinogen 401 H Puncture Site Patient Temperature O2 Saturation ABG pH ABG pCO2 ABG pO2 ABG HCO3 ABG O2 Content ABG Base Excess ABG Methemoglobin Linwood Test Hemoglobin Carboxyhemoglobin O2 Delivery Device Vent Setting Inspired O2 Critical Value POC Sodium Sodium POC Potassium Potassium POC Chloride Chloride Carbon Dioxide Anion Gap POC BUN BUN Creatinine POC Creatinine Estimated GFR POC Glucose Random Glucose Calcium Prot Corrected Calcium Total Bilirubin AST ALT Alkaline Phosphatase Total Creatine Kinase CK-MB (CK-2) CK-MB (CK-2) % Troponin I Total Protein Albumin Serum Alcohol Blood Type O Positive Antibody Screen Negative MTS Gel Crossmatch 06/22/18 06/22/18 06/22/18 00:51 06:15 08:05 WBC RBC Hgb POC Hgb (Calc) 11.6 L Hct POC Hct 34.0 L MCV MCH MCHC RDW Plt Count MPV Neut % (Auto) Lymph % (Auto) Mitchell % (Auto) Eos % (Auto) Baso % (Auto) Neut # (Auto) Lymph # (Auto) Mitchell # (Auto) Eos # (Auto) Baso # (Auto) WBC Differential Differential Comment PT INR APTT Fibrinogen Puncture Site Drawn in or Right radial Patient Temperature 98.6 98.6 O2 Saturation 96 97 ABG pH 7.34 L 7.30 L ABG pCO2 35 L 45 H ABG pO2 269 H 314 H ABG HCO3 18 L 22 ABG O2 Content 18.4 17.6 ABG Base Excess -6.5 L -3.7 L ABG Methemoglobin 1.9 1.5 Linwood Test Present Hemoglobin 13.2 12.4 Carboxyhemoglobin 1.3 1.2 O2 Delivery Device Or Ventilator Vent Setting Prvc/ac Inspired O2 21 100 Critical Value No No POC Sodium 133 L Sodium 135 L POC Potassium 6.0 H Potassium 5.8 H POC Chloride 98 L Chloride 98 Carbon Dioxide 25.8 Anion Gap 11 POC BUN 42 H BUN 40 H Creatinine 2.08 H POC Creatinine 2.2 H Estimated GFR 28 L POC Glucose 351 H Random Glucose 334 H Calcium 8.2 L Prot Corrected Calcium Total Bilirubin 0.4 AST 108 H ALT 33 Alkaline Phosphatase 91 Total Creatine Kinase 6703 H CK-MB (CK-2) 16.6 H CK-MB (CK-2) % 0.2 Troponin I Less than 0.02 L Total Protein 7.9 Albumin 3.0 L Serum Alcohol Less than 3 Blood Type Antibody Screen MTS Gel Crossmatch 06/22/18 06/22/18 06/22/18 09:30 12:16 12:18 WBC 12.5 H RBC 3.18 L Hgb 10.1 L POC Hgb (Calc) Hct 30.3 L POC Hct MCV 95.3 MCH 31.8 MCHC 33.4 RDW 15.6 Plt Count 180 MPV 8.2 Neut % (Auto) Lymph % (Auto) Mitchell % (Auto) Eos % (Auto) Baso % (Auto) Neut # (Auto) Lymph # (Auto) Mitchell # (Auto) Eos # (Auto) Baso # (Auto) WBC Differential Differential Comment PT INR APTT Fibrinogen Puncture Site Drawn in or Patient Temperature 98.6 O2 Saturation 96 ABG pH 7.23 L* ABG pCO2 46 H ABG pO2 246 H ABG HCO3 19 L ABG O2 Content 14.5 ABG Base Excess -7.4 L ABG Methemoglobin 1.9 Lin[place] Test Present Hemoglobin 10.3 L Carboxyhemoglobin 0.7 O2 Delivery Device Or Vent Setting Or Inspired O2 21 Critical Value Yes POC Sodium Sodium 133 L POC Potassium Potassium 5.9 H POC Chloride Chloride 99 Carbon Dioxide 19.4 L Anion Gap 15 POC BUN BUN 44 H Creatinine 2.05 H POC Creatinine Estimated GFR 32 L POC Glucose Random Glucose 414 H Calcium 7.6 L Prot Corrected Calcium Total Bilirubin AST ALT Alkaline Phosphatase Total Creatine Kinase CK-MB (CK-2) CK-MB (CK-2) % Troponin I Total Protein Albumin Serum Alcohol Blood Type Antibody Screen MTS Gel Crossmatch 06/22/18 06/22/18 06/22/18 12:18 12:45 15:50 WBC RBC Hgb POC Hgb (Calc) Hct POC Hct MCV MCH MCHC RDW Plt Count MPV Neut % (Auto) Lymph % (Auto) Mitchell % (Auto) Eos % (Auto) Baso % (Auto) Neut # (Auto) Lymph # (Auto) Mitchell # (Auto) Eos # (Auto) Baso # (Auto) WBC Differential Differential Comment PT INR APTT Fibrinogen Puncture Site Drawn in or Patient Temperature 98.6 O2 Saturation 96 ABG pH 7.37 L ABG pCO2 32 L ABG pO2 251 H ABG HCO3 18 L ABG O2 Content 16.2 ABG Base Excess -6.2 L ABG Methemoglobin 2.0 [place] Test Hemoglobin 11.6 L Carboxyhemoglobin 1.3 O2 Delivery Device Or Vent Setting Inspired O2 21 Critical Value No POC Sodium Sodium 138 POC Potassium Potassium 4.8 D POC Chloride Chloride 102 Carbon Dioxide 20.2 L Anion Gap 16 H POC BUN BUN 44 H Creatinine 2.29 H POC Creatinine Estimated GFR 28 L POC Glucose 475 H* Random Glucose 413 H Calcium 7.9 L Prot Corrected Calcium Total Bilirubin 0.4 AST 434 H ALT 85 H Alkaline Phosphatase 66 Total Creatine Kinase CK-MB (CK-2) CK-MB (CK-2) % Troponin I Total Protein 5.9 L D Albumin 2.0 L D Serum Alcohol Blood Type Antibody Screen MTS Gel Crossmatch 06/22/18 06/22/18 06/22/18 17:36 18:36 19:51 WBC RBC Hgb 10.5 L POC Hgb (Calc) Hct 29.5 L POC Hct MCV MCH MCHC RDW Plt Count MPV Neut % (Auto) Lymph % (Auto) Mitchell % (Auto) Eos % (Auto) Baso % (Auto) Neut # (Auto) Lymph # (Auto) Mitchell # (Auto) Eos # (Auto) Baso # (Auto) WBC Differential Differential Comment PT INR APTT Fibrinogen Puncture Site Patient Temperature O2 Saturation ABG pH ABG pCO2 ABG pO2 ABG HCO3 ABG O2 Content ABG Base Excess ABG Methemoglobin [place] Test Hemoglobin Carboxyhemoglobin O2 Delivery Device Vent Setting Inspired O2 Critical Value POC Sodium Sodium POC Potassium Potassium POC Chloride Chloride Carbon Dioxide Anion Gap POC BUN BUN Creatinine POC Creatinine Estimated GFR POC Glucose 326 H Random Glucose Calcium Prot Corrected Calcium Total Bilirubin AST ALT Alkaline Phosphatase Total Creatine Kinase CK-MB (CK-2) CK-MB (CK-2) % Troponin I Total Protein Albumin Serum Alcohol Blood Type Antibody Screen MTS Gel Crossmatch See Detail 06/22/18 06/22/18 06/22/18 20:21 20:21 21:02 WBC 12.3 H RBC 3.30 L Hgb 10.6 L POC Hgb (Calc) Hct 31.2 L POC Hct MCV 94.4 MCH 32.1 MCHC 34.1 RDW 16.0 Plt Count 196 MPV 8.5 Neut % (Auto) Lymph % (Auto) Mitchell % (Auto) Eos % (Auto) Baso % (Auto) Neut # (Auto) Lymph # (Auto) Mitchell # (Auto) Eos # (Auto) Baso # (Auto) WBC Differential Differential Comment PT INR APTT Fibrinogen Puncture Site Patient Temperature O2 Saturation ABG pH ABG pCO2 ABG pO2 ABG HCO3 ABG O2 Content ABG Base Excess ABG Methemoglobin Linwood Test Hemoglobin Carboxyhemoglobin O2 Delivery Device Vent Setting Inspired O2 Critical Value POC Sodium Sodium 136 POC Potassium Potassium 5.5 H POC Chloride Chloride 104 Carbon Dioxide 18.1 L Anion Gap 14 POC BUN BUN 47 H Creatinine 2.23 H POC Creatinine Estimated GFR 29 L POC Glucose 554 H* Random Glucose 308 H D Calcium 7.5 L Prot Corrected Calcium Total Bilirubin AST ALT Alkaline Phosphatase Total Creatine Kinase CK-MB (CK-2) CK-MB (CK-2) % Troponin I Total Protein Albumin Serum Alcohol Blood Type Antibody Screen [facility] Gel Crossmatch 06/22/18 06/22/18 06/22/18 21:05 21:59 23:17 WBC RBC Hgb POC Hgb (Calc) Hct POC Hct MCV MCH MCHC RDW Plt Count MPV Neut % (Auto) Lymph % (Auto) Mitchell % (Auto) Eos % (Auto) Baso % (Auto) Neut # (Auto) Lymph # (Auto) Mitchell # (Auto) Eos # (Auto) Baso # (Auto) WBC Differential Differential Comment PT INR APTT Fibrinogen Puncture Site Patient Temperature O2 Saturation ABG pH ABG pCO2 ABG pO2 ABG HCO3 ABG O2 Content ABG Base Excess ABG Methemoglobin [place] Test Hemoglobin Carboxyhemoglobin O2 Delivery Device Vent Setting Inspired O2 Critical Value POC Sodium Sodium POC Potassium Potassium POC Chloride Chloride Carbon Dioxide Anion Gap POC BUN BUN Creatinine POC Creatinine Estimated GFR POC Glucose 312 H 319 H 258 H Random Glucose Calcium Prot Corrected Calcium Total Bilirubin AST ALT Alkaline Phosphatase Total Creatine Kinase CK-MB (CK-2) CK-MB (CK-2) % Troponin I Total Protein Albumin Serum Alcohol Blood Type Antibody Screen [facility] Gel Crossmatch 06/23/18 06/23/18 06/23/18 00:22 01:16 02:11 WBC RBC Hgb POC Hgb (Calc) Hct POC Hct MCV MCH MCHC RDW Plt Count MPV Neut % (Auto) Lymph % (Auto) Mitchell % (Auto) Eos % (Auto) Baso % (Auto) Neut # (Auto) Lymph # (Auto) Mitchell # (Auto) Eos # (Auto) Baso # (Auto) WBC Differential Differential Comment PT INR APTT Fibrinogen Puncture Site Patient Temperature O2 Saturation ABG pH ABG pCO2 ABG pO2 ABG HCO3 ABG O2 Content ABG Base Excess ABG Methemoglobin Lin[place] Test Hemoglobin Carboxyhemoglobin O2 Delivery Device Vent Setting Inspired O2 Critical Value POC Sodium Sodium POC Potassium Potassium POC Chloride Chloride Carbon Dioxide Anion Gap POC BUN BUN Creatinine POC Creatinine Estimated GFR POC Glucose 317 H 330 H 305 H Random Glucose Calcium Prot Corrected Calcium Total Bilirubin AST ALT Alkaline Phosphatase Total Creatine Kinase CK-MB (CK-2) CK-MB (CK-2) % Troponin I Total Protein Albumin Serum Alcohol Blood Type Antibody Screen MTS Gel Crossmatch 06/23/18 06/23/18 06/23/18 03:06 04:04 05:07 WBC RBC Hgb POC Hgb (Calc) Hct POC Hct MCV MCH MCHC RDW Plt Count MPV Neut % (Auto) Lymph % (Auto) Mitchell % (Auto) Eos % (Auto) Baso % (Auto) Neut # (Auto) Lymph # (Auto) Mitchell # (Auto) Eos # (Auto) Baso # (Auto) WBC Differential Differential Comment PT INR APTT Fibrinogen Puncture Site Patient Temperature O2 Saturation ABG pH ABG pCO2 ABG pO2 ABG HCO3 ABG O2 Content ABG Base Excess ABG Methemoglobin Lin[place] Test Hemoglobin Carboxyhemoglobin O2 Delivery Device Vent Setting Inspired O2 Critical Value POC Sodium Sodium POC Potassium Potassium POC Chloride Chloride Carbon Dioxide Anion Gap POC BUN BUN Creatinine POC Creatinine Estimated GFR POC Glucose 272 H 296 H 264 H Random Glucose Calcium Prot Corrected Calcium Total Bilirubin AST ALT Alkaline Phosphatase Total Creatine Kinase CK-MB (CK-2) CK-MB (CK-2) % Troponin I Total Protein Albumin Serum Alcohol Blood Type Antibody Screen [facility] Gel Crossmatch 06/23/18 06/23/18 06/23/18 05:10 05:10 05:48 WBC 14.8 H RBC 3.32 L Hgb 10.5 L POC Hgb (Calc) Hct 31.1 L POC Hct MCV 93.5 MCH 31.5 MCHC 33.7 RDW 15.7 Plt Count 200 MPV 8.5 Neut % (Auto) 88.3 H Lymph % (Auto) 4.9 L Mitchell % (Auto) 6.8 Eos % (Auto) 0.0 Baso % (Auto) 0.0 Neut # (Auto) 13.1 H Lymph # (Auto) 0.7 L Mitchell # (Auto) 1.0 H Eos # (Auto) 0.0 Baso # (Auto) 0.0 WBC Differential . Differential Comment Auto diff final PT INR APTT Fibrinogen Puncture Site Art line Patient Temperature 98.6 O2 Saturation 97 ABG pH 7.52 H* ABG pCO2 19 L* ABG pO2 155 H ABG HCO3 15 L* ABG O2 Content 13.9 ABG Base Excess -7.0 L ABG Methemoglobin 1.3 [place] Test Hemoglobin 10.0 L Carboxyhemoglobin 1.4 O2 Delivery Device Ventilator Vent Setting Prvc/ac Inspired O2 40 Critical Value Yes POC Sodium Sodium 137 POC Potassium Potassium 5.0 POC Chloride Chloride 106 Carbon Dioxide 18.1 L Anion Gap 13 POC BUN BUN 50 H Creatinine 2.62 H POC Creatinine Estimated GFR 24 L POC Glucose Random Glucose 275 H Calcium 7.0 L* Prot Corrected Calcium 7.7 L Total Bilirubin 0.2 AST 735 H ALT 127 H Alkaline Phosphatase 67 Total Creatine Kinase CK-MB (CK-2) CK-MB (CK-2) % Troponin I Total Protein 5.8 L Albumin 1.8 L Serum Alcohol Blood Type Antibody Screen MTS Gel Crossmatch 06/23/18 06/23/18 06/23/18 06:09 07:13 08:08 WBC RBC Hgb POC Hgb (Calc) Hct POC Hct MCV MCH MCHC RDW Plt Count MPV Neut % (Auto) Lymph % (Auto) Mitchell % (Auto) Eos % (Auto) Baso % (Auto) Neut # (Auto) Lymph # (Auto) Mitchell # (Auto) Eos # (Auto) Baso # (Auto) WBC Differential Differential Comment PT INR APTT Fibrinogen Puncture Site Patient Temperature O2 Saturation ABG pH ABG pCO2 ABG pO2 ABG HCO3 ABG O2 Content ABG Base Excess ABG Methemoglobin [place] Test Hemoglobin Carboxyhemoglobin O2 Delivery Device Vent Setting Inspired O2 Critical Value POC Sodium Sodium POC Potassium Potassium POC Chloride Chloride Carbon Dioxide Anion Gap POC BUN BUN Creatinine POC Creatinine Estimated GFR POC Glucose 275 H 274 H 271 H Random Glucose Calcium Prot Corrected Calcium Total Bilirubin AST ALT Alkaline Phosphatase Total Creatine Kinase CK-MB (CK-2) CK-MB (CK-2) % Troponin I Total Protein Albumin Serum Alcohol Blood Type Antibody Screen MTS Gel Crossmatch 06/23/18 06/23/18 06/23/18 09:12 10:12 11:22 WBC RBC Hgb POC Hgb (Calc) Hct POC Hct MCV MCH MCHC RDW Plt Count MPV Neut % (Auto) Lymph % (Auto) Mitchell % (Auto) Eos % (Auto) Baso % (Auto) Neut # (Auto) Lymph # (Auto) Mitchell # (Auto) Eos # (Auto) Baso # (Auto) WBC Differential Differential Comment PT INR APTT Fibrinogen Puncture Site Patient Temperature O2 Saturation ABG pH ABG pCO2 ABG pO2 ABG HCO3 ABG O2 Content ABG Base Excess ABG Methemoglobin [place] Test Hemoglobin Carboxyhemoglobin O2 Delivery Device Vent Setting Inspired O2 Critical Value POC Sodium Sodium POC Potassium Potassium POC Chloride Chloride Carbon Dioxide Anion Gap POC BUN BUN Creatinine POC Creatinine Estimated GFR POC Glucose 287 H 257 H 274 H Random Glucose Calcium Prot Corrected Calcium Total Bilirubin AST ALT Alkaline Phosphatase Total Creatine Kinase CK-MB (CK-2) CK-MB (CK-2) % Troponin I Total Protein Albumin Serum Alcohol Blood Type Antibody Screen MTS Gel Crossmatch 06/23/18 06/23/18 12:05 14:00 WBC RBC Hgb POC Hgb (Calc) Hct POC Hct MCV MCH MCHC RDW Plt Count MPV Neut % (Auto) Lymph % (Auto) Mitchell % (Auto) Eos % (Auto) Baso % (Auto) Neut # (Auto) Lymph # (Auto) Mitchell # (Auto) Eos # (Auto) Baso # (Auto) WBC Differential Differential Comment PT INR APTT Fibrinogen Puncture Site Patient Temperature O2 Saturation ABG pH ABG pCO2 ABG pO2 ABG HCO3 ABG O2 Content ABG Base Excess ABG Methemoglobin [place] Test Hemoglobin Carboxyhemoglobin O2 Delivery Device Vent Setting Inspired O2 Critical Value POC Sodium Sodium POC Potassium Potassium POC Chloride Chloride Carbon Dioxide Anion Gap POC BUN BUN Creatinine POC Creatinine Estimated GFR POC Glucose 304 H 299 H Random Glucose Calcium Prot Corrected Calcium Total Bilirubin AST ALT Alkaline Phosphatase Total Creatine Kinase CK-MB (CK-2) CK-MB (CK-2) % Troponin I Total Protein Albumin Serum Alcohol Blood Type Antibody Screen MTS Gel Crossmatch Result Diagrams: 06/23/18 05:10 06/23/18 05:10 Imaging: Cervical Spine X-Ray 06/22/18 00:00 CONCLUSION: There is post anterior cervical fusion at C3-C4 as well as within the lower cervical spine. Chest CT 06/22/18 00:00 CONCLUSION: No acute abnormality is identified within the chest. Venous Doppler Study 06/22/18 00:00 CONCLUSION: 1. No evidence of deep venous thrombosis within the right lower extremity. Pelvis X-Ray 06/22/18 00:49 CONCLUSION: No acute pelvis abnormality is identified. Abdomen/Pelvis CT 06/22/18 00:51 CONCLUSION: 1. No acute traumatic injury is identified within the abdomen or pelvis. 2. Moderate to severe atherosclerotic disease. Cervical Spine CT 06/22/18 00:51 CONCLUSION: 1. There is a fracture involving the left C3 transverse process and likely pedicle. 2. Additionally, there is retrolisthesis of C3 on C4 which is suspected to be acute given the break in the anterior vertebral osteophytes at this level. 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 There is also asymmetric widening of the right C3-C4 facet joint. The severe spinal canal stenosis likely explains the clinical findings. 3. Otherwise, multilevel degenerative change, as above. Lumbar Spine CT 06/22/18 00:51 CONCLUSION: No acute lumbar spine injury is identified. There are degenerative changes throughout the lumbar spine consisting primarily of facet arthrosis with likely mild spinal canal narrowing at L2-L3 and L3-L4. Thoracic Spine CT 06/22/18 00:51 CONCLUSION: Accentuated thoracic kyphosis with multilevel degenerative change. No fracture or acute thoracic spine abnormality is identified. Cervical Spine MRI 06/22/18 06:40 CONCLUSION: 1. Fracture at C3 with retrolisthesis compressing the cord causing severe canal stenosis. 2. Edema within the cord from C2 to C5. Thoracic Spine MRI 06/22/18 06:41 CONCLUSION: 1. Kyphosis without compression deformity. 2. Left-sided protrusion at T9-10 without canal stenosis. There is narrowing of the left lateral recess. 3. Asymmetric left-sided disc bulge T10-11. Lumbar Spine MRI 06/22/18 06:42 CONCLUSION: 1. Multilevel disc bulges. 2. No compression fracture. Head CT 06/23/18 00:00 CONCLUSION: 1. Interval development of intraparenchymal and subdural hemorrhage involving the left temporal lobe tracking over the tentorium. 2. 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 3. Study is limited by the artifact generated from the halo. . Chest X-Ray 06/23/18 06:00 CONCLUSION: Stable chest x-ray with nonspecific mild left basilar opacity representing either atelectasis, consolidation, and/or effusion. Procedures: * 06/22/18 - C3-4 anterior cervical discectomy, interbody arthodhesis using PEEK cage filled with autologous bone graft, plate and screws and Halo brace placement. * 06/22/18 - right arm fasciotomy. Patient/Family Conference Present at Family Conference: Family meeting arranged for 06/24/18 9:30am. Family Conference Time: 15 Family Conference Location: Telephone Issues Discussed: Bri Bird LCSW called to arrange family meeting and the following information was reviewed: * Palliative care role, purpose, approach * Additional medical, psychosocial, and spiritual history * Palliative care contact information provided Assessment and Plan - Disease Oriented Problem List (1) Respiratory failure (2) Neurogenic shock, traumatic (3) Compartment syndrome (4) Cervical spine fracture (5) Paralysis (6) Fall - Symptom Scale (1) Pain 0-10 Scale: Unable to quantify Pertinent Non-Medical Issues: Psychosocial: Originally from [place]. Moved to [place] at age 3. for 27 years to current , [place]. 2 children (1 son, 1 daughter-estranged). 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 Was in the [employer] during [place]. Parents , father of lung cancer, mother unknown. One brother and one sister (lives in [place]). No tobacco use. Seldom social drinker. Spiritual: Member of [employer]. 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 [employer] members also visiting per . Legal: Reportedly has a living will and health care surrogate. , Krystle, reported health care surrogate. Requested copies. Ethical issues impacting care: No known concerns at this time. Important Contacts: Krystle Kevin: [phone] Prognosis: Mr. Kevin is an unfortunate 68 year old male who suffered a fall at home and was not found for about 12 hours. He suffered a C3-C4 spinal cord compression that resulted in paralyzation. He underwent C3-4 anterior cervical discectomy and Halo brace placement and right arm fasciotomy. Now with interval development of intraparenchymal and subdural hemorrhage involving the left temporal lobe tracking over the tentorium, large area of infarction involving the left posterior cerebral artery territory, study is limited by the artifact generated from the halo. His prognosis is poor. Code Status: Full Code Plan: * Patient is not capacitated to make his own health care decisions, not expected to regain capacity. Has Living Will. Designated health care surrogate is reportedly his spouse, Krystle Kevin. Copy of Advance Directives requested. * FULL CODE * Family meeting arranged with who will be coming from rehab facility on 06/24/18 around 9:30-10am. * SYMPTOMS: Pain: secondary to recent falls, C spine injury,surgery, halo placement, intubation, shock, new intracranial hemorrhage, etc. Unresponsive off all sedation. No new medication recommendations at this time. * Palliative care card with contact information left in room. * Palliative care will continue to follow to assist with symptom management, communication and further calrification of goals of medical treatment. Appreciation Thank you for the opportunity to participate in the care of Manuelito Kevin. Attestation Attestation: To help prompt me to consider important information that might be impacting today's encounter and assessment, information from prior notes written by myself or my colleagues may have been "brought forward" into today's note. My signature on this note, however, is an attestation that I personally performed the exam, history, and/or decision-making noted today, and, unless otherwise indicated, the interactions with patient, family, and staff as well as the review of records all occurred today. I also attest that the listed assessment and stated plan reflect my best clinical judgment today based on the combination of historical information, prior notes, and today's exam/ interactions. When time spent is documented, it refers only to time spent today by the signer, or if indicated, combined time spent today by collaborating physician/nurse practitioner.
[2018-06-24] MEDS: Oral Hygiene Kit OROPHARYNG SCH ×4 (00:58→16:40)
[2018-06-24] MEDS: Chlorhexidine Gluconate 2% 1 Pack (2 Cloths) TOPICAL SCH (03:44)
[2018-06-24] MEDS: Sod Chloride 0.9% Inj 1,000 ML IV.SIG SCH ×3 (04:44→23:34)
[2018-06-24 04:49] LABS: Baso % (Auto) 0.1 % (0.0-2.0); Eos % (Auto) 0.1 % (0.0-4.0); Hematocrit 26.7 % (39.0-51.0); Lymph # (Auto) 1.1 th/mm3 (1.0-4.8); Lymph % (Auto) 8.7 % (9.0-44.0); Mean Corpuscular HGB Conc 33.8 % (32.0-36.0); Mean Corpuscular Hemoglobin 31.9 pg (27.0-34.0); Mean Corpuscular Volume 94.6 fL (80.0-100.0); Mean Platelet Volume 8.5 fL (7.0-11.0); Mono % (Auto) 7.9 % (0.0-8.0); Neut # (Auto) 10.6 th/mm3 (1.8-7.7); Neut % (Auto) 83.2 % (16.0-70.0); Platelet Count 167 th/mm3 (150-450); Red Blood Count 2.82 mil/mm3 (4.50-5.90); Red Cell Distribution Width 16.1 % (11.6-17.2); White Blood Count 12.8 th/mm3 (4.0-11.0)
[2018-06-24 05:20] LABS: Albumin 1.7 g/dL (3.4-5.0); Calcium 6.7 mg/dL (8.5-10.1); Carbon Dioxide 19.8 meq/L (21.0-32.0); Total Protein 5.4 g/dL (6.4-8.2)
--- NOTE | 2018-06-24 05:37 | XR ---
EXAM DATE: 06/24/2018 5:24 AM EDT AGE/SEX: 68 years / Male INDICATIONS: Shortness of breath. CLINICAL DATA: This is the patient's subsequent encounter. Patient reports that signs and symptoms h ave been present for 4 - 6 days and indicates a pain score of Nonresponsive. MEDICAL/SURGICAL HISTORY: . Diabetes mellitus type II. Hypertension. . Fusion, cervical. COMPARISON: C, CHEST 1V SINGLE AP, 06/23/2018. . FINDINGS: Rotated and underinflated portable AP view of the chest demonstrates a normal-sized cardiac silhouett e. Left subclavian central line remains present and ETT is present with tip likely 2 cm from the lorin na. There is a left basilar opacity obscuring the left hemidiaphragm. No pneumothorax is identified. Right lung is clear. Bones demonstrate no acute finding. Multiple external structures overlie the pat ient. CONCLUSION: Underinflated examination with persistent left basilar opacity which could represent atelectasis or a irspace consolidation. Electronically signed by: Tommie Merino MD 06/24/2018 5:35 AM EDT
[2018-06-24 06:06] LABS: ABG Base Excess -7.1 mmol/L (-2-2); ABG PCO2 25 mmHg (38-42); ABG PO2 137 mmHg (61-120)
[2018-06-24] MEDS: Senna/Docusate Sodium 8.6/50 MG Tablet PO SCH ×2 (08:22→22:33)
[2018-06-24] MEDS: Pantoprazole Inj 40 MG Vial IV.PUSH SCH (09:18)
[2018-06-24] MEDS: Chlorhexidine 0.12% Oral Kit 15 ML UDC OROPHARYNG SCH ×2 (09:18→21:04)
--- NOTE | 2018-06-24 11:55 | P.PNCC ---
Subjective Brief History: This 68-year-old male was brought in as a trauma alert around 1:30 a.m. The patient apparently fell around noon at home. Was lying on his right side, unable to move for about 12 hours until a friend came to check on him. The patient was then transferred to our institution. He is noted to be paralyzed from the neck down, although on arrival, he is awake and alert, somewhat hypertensive. On arrival [place] coma scale is 15. The patient is awake, alert and oriented. His breathing is intact. Patient has no sensation or motion in upper or lower extremities. Deep tendon reflexes are not present. The patient is fairly flaccid. PAST MEDICAL HISTORY: Diabetes, hyperlipidemia, hypertension. Previous neck injury for patient with a fusion at the C5-C6 level, surgical history of spinal fusion. Final injuries detected The patient with a C3-C4 over C4 retrolisthesis and spinal compression. The patient will be placed in the ICU, rehydrated and monitored carefully. This patient may worsen over the next 24- 48 hours and require intubation, but right now the patient is awake and alert and intubation is not necessary. Neurosurgery is to see the patient as well. 24 Hour Review/Hospital Course: 06/22/2018 Neurologically alert and oriented and mildly sedated with Versed and fentanyl complaining about neck pain Hemodynamically now stable Required initially small dose dopamine to exert chronotropic and vasoactive effects I find Dopamine to be an ideal drug for patients with neurogenic shock Throughout the night patient was initially awake alert and oriented and in started developing more symptoms of neurogenic shock as it was expected Patient developed transitory hypotension and then periods of bradycardia and probably developed hypercapnia in the process becoming more somnolent. After the period of bradycardia patient was immediately emergently intubated and ventilated Postintubation bilateral breath sounds with good PO2 FiO2 gradient in good position of endotracheal tube PCO2 had normalized nonetheless I believe patient did have hypercarbia at the time of intubation Mentally he fully recovered he is aphasic alert and following commands about an hour after intubation Patient will undergo MRI of the C-spine followed by surgical decompression As noted in the history patient was laying on his side for about 12 hours and he has significant swelling of the right side and the right arm. Patient has good proximal pulses and distal radial pulse on palpation and ulnar by Doppler Capillary refill is intact Patient will be watched very carefully for development of increased swelling which could lead to compartment syndrome and ischemia of the hand 06/23/2018 Patient is obtunded today. He underwent surgical decompression and fixation with a halo yesterday as well as a right upper extremity fasciotomy for compartment syndrome. CT scan of the head is pending regarding the new clinical neurologic finding. 06/24/2018 CT demonstrated a left posterior cerebral artery distribution infarct as well as intraparenchymal hemorrhage and subdural hematoma. This is a devastating injury when combined with his spinal injury. Long discussion with son at the bedside. He is awaiting the arrival of his stepmother from a rehab facility because she will be the decision maker. The patient's primary care doctor is actively involved in assisting the family with the decision to likely withdraw care. Await family meeting with palliative care. Objective Vital Signs / I&O: Vital Signs 06/23/18 12:00 06/23/18 12:03 06/23/18 15:00 Temperature 96.8 F L Pulse Rate 56 L Respiratory Rate 14 14 Blood Pressure 118/63 Pulse Oximetry 100 100 100 06/23/18 15:45 06/23/18 16:00 06/23/18 20:00 Temperature 96.9 F L 97.6 F Pulse Rate 58 L 59 L Respiratory Rate 14 14 14 Blood Pressure 138/68 154/76 H Pulse Oximetry 100 100 100 06/23/18 20:19 06/24/18 00:00 06/24/18 00:18 Temperature 97.7 F Pulse Rate 55 L Respiratory Rate 14 14 14 Blood Pressure 116/54 L Pulse Oximetry 100 100 100 06/24/18 03:54 06/24/18 04:00 06/24/18 07:00 Temperature 97.6 F Pulse Rate 59 L 58 L Respiratory Rate 14 14 14 Blood Pressure 115/53 L 120/56 L Pulse Oximetry 100 100 100 06/24/18 07:15 06/24/18 07:30 06/24/18 07:45 Temperature Pulse Rate 58 L 58 L 58 L Respiratory Rate 14 14 14 Blood Pressure 118/54 L 114/53 L 119/54 L Pulse Oximetry 100 100 100 06/24/18 07:53 06/24/18 08:00 06/24/18 08:15 Temperature 97.6 F Pulse Rate 58 L 58 L Respiratory Rate 14 14 14 Blood Pressure 131/59 L 167/74 H Pulse Oximetry 100 100 100 06/24/18 08:30 06/24/18 08:45 06/24/18 09:00 Temperature Pulse Rate 58 L 58 L 57 L Respiratory Rate 14 14 14 Blood Pressure 110/51 L 108/50 L 115/53 L Pulse Oximetry 100 100 100 06/24/18 09:15 06/24/18 09:30 06/24/18 09:45 Temperature Pulse Rate 58 L 59 L 59 L Respiratory Rate 14 14 14 Blood Pressure 113/52 L 110/50 L Pulse Oximetry 100 100 100 06/24/18 10:00 06/24/18 10:15 06/24/18 10:30 Temperature Pulse Rate 59 L 59 L 59 L Respiratory Rate 14 14 14 Blood Pressure 108/50 L 105/45 L 105/46 L Pulse Oximetry 100 100 100 06/24/18 10:45 06/24/18 11:00 Temperature Pulse Rate 59 L 59 L Respiratory Rate 14 14 Blood Pressure 104/45 L 105/45 L Pulse Oximetry 100 100 Intake & Output 06/23/18 06/24/18 06/24/18 18:59 06:59 18:59 Intake Total 3620 / 3620 1370 / 1370 43 / 43 Output Total 290 / 290 460 / 460 Balance 3330 / 3330 910 / 910 43 / 43 Weight 115 kg Intake: IV 3620 / 3620 1370 / 1370 43 / 43 DOPamine 400 MG/250 ML Premix 0 / 0 400 mg In 250 ml @ 3 MCG/KG/MIN 11.745 mls/hr IV.CONT TITRATE PRN Rx#:[id number] Versed Inj 50 mg In 50 ml @ 2 19 / 19 MG/HR 2 mls/hr IV.CONT TITRATE PRN Rx#:[id number] NS Inj 1,000 ML @ 100 mls/hr IV 1500 / 1500 .CONT .Q10H BISI Rx#:[id number] Levophed Inj 4 MG In NS Inj 246 250 / 250 ML @ 2 MCG/MIN 7.5 mls/hr IV. SIG TITRATE PRN Rx#:[id number] NS Inj 1,000 ML @ 100 mls/hr IV 2000 / 2000 1000 / 1000 .SIG .Q10H BISI Rx#:[id number] Ancef Inj 2,000 MG In NS Inj 120 / 120 120 / 120 100 ML @ 100 mls/hr IV.SIG Q8H BISI Rx#:[id number] fentaNYL 10 mcg/mL Premix Drip / 2,500 mcg In 250 ml @ 50 MCG/HR 5 mls/hr IV.SIG TITRATE PRN Rx #:[id number] Oral 0 / 0 0 / 0 Output: Urine Amount (Catheter) 275 / 275 450 / 450 Indwelling Urethral Catheter 275 / 275 450 / 450 Wound Drainage # 1 Anterior Neck Other: Mode Setting Right Forehead Continuous Continuous # Bowel Movements 0 Result Diagrams: 06/24/18 04:35 06/24/18 04:35 Imaging: Impressions Head CT 06/23/18 00:00 CONCLUSION: 1. Interval development of intraparenchymal and subdural hemorrhage involving the left temporal lobe tracking over the tentorium. 2. 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 3. Study is limited by the artifact generated from the halo. . Chest X-Ray 06/24/18 06:00 CONCLUSION: Underinflated examination with persistent left basilar opacity which could represent atelectasis or airspace consolidation. Disinhibition Score: 14.00 Aggression Score: 14.00 Lability Score: 14.00 Agitated Behavior Total Score: 14 - Exam .NET PROGRAMMER: No pupillary response, moving lower extremity spontaneously but not purposefully Hemodynamic/Cardiac: Regular rate and rhythm Pulmonary/Respiratory: Clear to auscultation bilaterally Abdomen/GI Nutrition: Soft nontender nondistended Assessment and Plan Plan: CT scan of the brain shows an infarct in the left posterior cerebral artery distribution as well as intraparenchymal hemorrhage and subdural hematoma.. His and primary care physician are actively involved in his care and they are adamant that he would not wish to persist like this. Await family meeting with palliative care to determine further course of action regarding potential withdrawal of care versus long-term care placement following a tracheostomy and feeding tube placement 45 minutes critical care time
--- NOTE | 2018-06-24 14:22 | P.PNPAL ---
Reason for Visit Reason for visit: a. To assist with evaluation and management of symptoms including: pain. b. To assist medical decision maker(s) with: better understanding of current medical conditions; weighing benefits/burdens of medical treatment options; making medical treatment decisions. Subjective Subjective/Interval History: Patient seen and examined in ICU. Discussed with neurosurgery, trauma and nursing staff. Patient remains intubated on mech vent. He is off all sedation and is unresponsive. Pupils unequal. 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 He remains on Insulin and Levophed drips. Nurse indicates no response except RLE posturing. Other clinical data: * Chest x-ray revealed underinflation with persistent left basilar opacity which could represent atelectasis or airspace consolidation. * WBC 12.8, hemoglobin 9.0, hematocrit 26.7, platelets 167, neutrophils 83.2% Family/Friend Interactions: Met with (Krystle); son (Manuelito); DIL (Anne) and friend (Aishwarya) at bedside. Also present Bri Bird LCSW. Router Tender from his shinto visited at the end of our meeting. Family welcomes Effie configuration developer support. Discussion included: Palliative care role, purpose, approach Additional medical, psychosocial, and spiritual history Patients general health, functional status, and cognitive changes in the months leading up to the current hospitalization Patient/family understanding of the current medical problems Patient/family understanding of prognosis Code Status [NO CODE elected, all family in agreement] Advanced Directives Patients goals of care as best understood from advance directives and/or conversations and/or values Current medical treatment options and benefits/burdens of those options Likely scenarios comparing ongoing aggressive care with a transition to `` comfort measures only Questions answered to the best of my ability Palliative care contact information provided In summary, , son, [id number] and friend are all in agreement that patient would elect NO CODE STATUS at this time. Family reports that he should be allowed to peacefully if it is this time. and son both state patient would not want to live a life of dependence, would not want to be artificially prolonged by tubes and machines and have had conversations about acceptable quality of life. All parties present indicate that the patient would never want to have to be cared for by anyone else. At this time his , Krystle is seeing him for the first time since his fall. She is certain he would not want to live like this, though verbalizes she needs to give it a little more time. She is realistic. She requests that I give her call on 06/25/18 with medical update. Based on today's conversation I suspect this family will transition to comfort focused care once his has had a chance to process and except his poor prognosis. Mrs. Kevin has had her own health issues, been in and out of rehabilitation/hospital for the past 4-5 months. She was supposed to be discharged home from rehab on 06/23/18 however her discharge was canceled when patient was admitted to ICU as she is not able to care for herself at home. Mr. Kevin was her caregiver. Following her family meeting the son and [id number] came into the [facility] to report that they understand the patient's overall poor prognosis and are certain he would not want to live like this. They would like to give Mrs. Kevin sometime to absorb and except the circumstances. I explained that no decision needed to be made at this time and that we will continue to follow and support the family. Palliative care number provided. Palliative care will continue to follow to assist with further clarification of goals of medical treatment in the coming days/weeks. . Advance Directives Living Will: Copy in medical record Health Care Surrogate: Copy in medical record Advance Directives Date on File: 11/15/08 Health Care Surrogate Name and Number: Krystle Kevin, : [phone] Documented care wishes:: Living Will directs that if he should have a terminal condition and the attending physicians have determined that there will be no recovery from such condition and that is imminent, he directs that life prolonging procedures be withheld or withdrawn and the application of such procedures would serve only to prolong artificially the process of dying and that he be permitted to naturally with only administration of medication performance of medical procedure deemed necessary to make him comfortable and alleviate pain. He further desires and directs that food and water be withheld or withdrawn when the application of such life sustaining procedures would serve only to prolonged artificially the process of dying. Significant change in goals:: NO CODE. Family verbalizes patient would not want to live a life of dependence. need "some time" before considering transition to comfort. She would like family to say their good-byes. She wants to review his Advance Directives and speak with other family and friends. She requests I call her with medical update 06/25/18. Objective Vital Signs: Vital Signs 06/23/18 15:00 06/23/18 15:45 06/23/18 16:00 Temperature 96.9 F L Pulse Rate 58 L Respiratory Rate 14 14 Blood Pressure 138/68 Pulse Oximetry 100 100 100 06/23/18 20:00 06/23/18 20:19 06/24/18 00:00 Temperature 97.6 F 97.7 F Pulse Rate 59 L 55 L Respiratory Rate 14 14 14 Blood Pressure 154/76 H 116/54 L Pulse Oximetry 100 100 100 06/24/18 00:18 06/24/18 03:54 06/24/18 04:00 Temperature 97.6 F Pulse Rate 59 L Respiratory Rate 14 14 14 Blood Pressure 115/53 L Pulse Oximetry 100 100 100 06/24/18 07:00 06/24/18 07:15 06/24/18 07:30 Temperature Pulse Rate 58 L 58 L 58 L Respiratory Rate 14 14 14 Blood Pressure 120/56 L 118/54 L 114/53 L Pulse Oximetry 100 100 100 06/24/18 07:45 06/24/18 07:53 06/24/18 08:00 Temperature 97.6 F Pulse Rate 58 L 58 L Respiratory Rate 14 14 14 Blood Pressure 119/54 L 131/59 L Pulse Oximetry 100 100 100 06/24/18 08:15 06/24/18 08:30 06/24/18 08:45 Temperature Pulse Rate 58 L 58 L 58 L Respiratory Rate 14 14 14 Blood Pressure 167/74 H 110/51 L 108/50 L Pulse Oximetry 100 100 100 06/24/18 09:00 06/24/18 09:15 06/24/18 09:30 Temperature Pulse Rate 57 L 58 L 59 L Respiratory Rate 14 14 14 Blood Pressure 115/53 L 113/52 L 110/50 L Pulse Oximetry 100 100 100 06/24/18 09:45 06/24/18 10:00 06/24/18 10:15 Temperature Pulse Rate 59 L 59 L 59 L Respiratory Rate 14 14 14 Blood Pressure 108/50 L 105/45 L Pulse Oximetry 100 100 100 06/24/18 10:30 06/24/18 10:45 06/24/18 11:00 Temperature Pulse Rate 59 L 59 L 59 L Respiratory Rate 14 14 14 Blood Pressure 105/46 L 104/45 L 105/45 L Pulse Oximetry 100 100 100 06/24/18 11:15 06/24/18 11:30 06/24/18 11:45 Temperature Pulse Rate 58 L 58 L 58 L Respiratory Rate 0 L 0 L 0 L Blood Pressure Pulse Oximetry 100 100 99 06/24/18 12:00 06/24/18 12:15 Temperature 97.5 F L Pulse Rate 58 L 58 L Respiratory Rate 0 L 0 L Blood Pressure 106/46 L Pulse Oximetry 100 100 Intake & Output 06/23/18 06/24/18 06/24/18 18:59 06:59 18:59 Intake Total 3620 / 3620 1370 / 1370 43 / 43 Output Total 290 / 290 460 / 460 Balance 3330 / 3330 910 / 910 43 / 43 Weight 115 kg Intake: IV 3620 / 3620 1370 / 1370 43 / 43 DOPamine 400 MG/250 ML Premix 0 / 0 400 mg In 250 ml @ 3 MCG/KG/MIN 11.745 mls/hr IV.CONT TITRATE PRN Rx#:[id number] Versed Inj 50 mg In 50 ml @ 2 19 / 19 MG/HR 2 mls/hr IV.CONT TITRATE PRN Rx#:[id number] NS Inj 1,000 ML @ 100 mls/hr IV 1500 / 1500 .CONT .Q10H BISI Rx#:[id number] Levophed Inj 4 MG In NS Inj 246 250 / 250 ML @ 2 MCG/MIN 7.5 mls/hr IV. SIG TITRATE PRN Rx#:[id number] NS Inj 1,000 ML @ 100 mls/hr IV 2000 / 2000 1000 / 1000 .SIG .Q10H BISI Rx#:[id number] Ancef Inj 2,000 MG In NS Inj 120 / 120 120 / 120 100 ML @ 100 mls/hr IV.SIG Q8H BISI Rx#:[id number] fentaNYL 10 mcg/mL Premix Drip 24 / 24 2,500 mcg In 250 ml @ 50 MCG/HR 5 mls/hr IV.SIG TITRATE PRN Rx #:[id number] Oral 0 / 0 0 / 0 Output: Urine Amount (Catheter) 275 / 275 450 / 450 Indwelling Urethral Catheter 275 / 275 450 / 450 Wound Drainage # 1 Anterior Neck Other: Mode Setting Right Forehead Continuous Continuous # Bowel Movements 0 Physical Exam: CONSTITUTIONAL/GENERAL: This is an adequately nourished patient, unresponsive off sedation on mech vent. TUBES/LINES/DRAINS: Halo brace, ETT, anterior neck TRICE drain, left subclavian central line, PIV left FA, right arm dressing, Lilly, SCDs. SKIN: Generalized pallor. Ecchymoses on left UE, right arm dressing in place. Wounds on left and right foot, not visualized by me today. Skin temperature cold. HEAD: Halo brace in place. EYES: Pupils unequal, fixed. ENT: Unable to assess hearing. Nose without bleeding or purulent drainage. Throat difficult to visualize due to ETT. NECK: TRICE drain left anterior neck (serosanguineous drainage noted) with dressing in place, clean and dry. Trachea midline. CARDIOVASCULAR: Regular rate and rhythm without murmurs, gallops, or rubs. RESPIRATORY/CHEST: Unlabored respirations on mech vent. Diminishes breath sounds bilaterally. GASTROINTESTINAL: Abdomen protuberant. Bowel sounds hypoactive. GENITOURINARY: Without palpable bladder distension. Lilly catheter in place. MUSCULOSKELETAL: Extremities with edema. Cold to touch. NEUROLOGICAL: Unresponsive, off sedation. PSYCHIATRIC: Unresponsive, off sedation. Diagnostic Tests Laboratory: Laboratory Results - last 72 hr 06/22/18 06/22/18 06/22/18 00:51 00:51 00:51 WBC 9.7 RBC 3.73 L Hgb 11.9 L POC Hgb (Calc) Hct 35.2 L POC Hct MCV 94.5 MCH 31.8 MCHC 33.7 RDW 15.6 Plt Count 220 MPV 7.7 Neut % (Auto) 87.2 H Lymph % (Auto) 7.0 L [place] % (Auto) 5.6 Eos % (Auto) 0.1 Baso % (Auto) 0.1 Neut # (Auto) 8.4 H Lymph # (Auto) 0.7 L [place] # (Auto) 0.5 Eos # (Auto) 0.0 Baso # (Auto) 0.0 WBC Differential . Differential Comment Auto diff final PT 12.2 H INR 1.2 APTT 24.4 Fibrinogen 401 H Puncture Site Patient Temperature O2 Saturation ABG pH ABG pCO2 ABG pO2 ABG HCO3 ABG O2 Content ABG Base Excess ABG Methemoglobin [place] Test Hemoglobin Carboxyhemoglobin O2 Delivery Device Vent Setting Inspired O2 Critical Value POC Sodium Sodium POC Potassium Potassium POC Chloride Chloride Carbon Dioxide Anion Gap POC BUN BUN Creatinine POC Creatinine Estimated GFR POC Glucose Random Glucose Calcium Prot Corrected Calcium Total Bilirubin AST ALT Alkaline Phosphatase Total Creatine Kinase CK-MB (CK-2) CK-MB (CK-2) % Troponin I Total Protein Albumin Serum Alcohol Blood Type O Positive Antibody Screen Negative MTS Gel Crossmatch 06/22/18 06/22/18 06/22/18 00:51 06:15 08:05 WBC RBC Hgb POC Hgb (Calc) 11.6 L Hct POC Hct 34.0 L MCV MCH MCHC RDW Plt Count MPV Neut % (Auto) Lymph % (Auto) [place] % (Auto) Eos % (Auto) Baso % (Auto) Neut # (Auto) Lymph # (Auto) [place] # (Auto) Eos # (Auto) Baso # (Auto) WBC Differential Differential Comment PT INR APTT Fibrinogen Puncture Site Drawn in or Right radial Patient Temperature 98.6 98.6 O2 Saturation 96 97 ABG pH 7.34 L 7.30 L ABG pCO2 35 L 45 H ABG pO2 269 H 314 H ABG HCO3 18 L 22 ABG O2 Content 18.4 17.6 ABG Base Excess -6.5 L -3.7 L ABG Methemoglobin 1.9 1.5 [place] Test Present Hemoglobin 13.2 12.4 Carboxyhemoglobin 1.3 1.2 O2 Delivery Device Or Ventilator Vent Setting Prvc/ac Inspired O2 21 100 Critical Value No No POC Sodium 133 L Sodium 135 L POC Potassium 6.0 H Potassium 5.8 H POC Chloride 98 L Chloride 98 Carbon Dioxide 25.8 Anion Gap 11 POC BUN 42 H BUN 40 H Creatinine 2.08 H POC Creatinine 2.2 H Estimated GFR 28 L POC Glucose 351 H Random Glucose 334 H Calcium 8.2 L Prot Corrected Calcium Total Bilirubin 0.4 AST 108 H ALT 33 Alkaline Phosphatase 91 Total Creatine Kinase 6703 H CK-MB (CK-2) 16.6 H CK-MB (CK-2) % 0.2 Troponin I Less than 0.02 L Total Protein 7.9 Albumin 3.0 L Serum Alcohol Less than 3 Blood Type Antibody Screen MTS Gel Crossmatch 06/22/18 06/22/18 06/22/18 09:30 12:16 12:18 WBC 12.5 H RBC 3.18 L Hgb 10.1 L POC Hgb (Calc) Hct 30.3 L POC Hct MCV 95.3 MCH 31.8 MCHC 33.4 RDW 15.6 Plt Count 180 MPV 8.2 Neut % (Auto) Lymph % (Auto) [place] % (Auto) Eos % (Auto) Baso % (Auto) Neut # (Auto) Lymph # (Auto) [place] # (Auto) Eos # (Auto) Baso # (Auto) WBC Differential Differential Comment PT INR APTT Fibrinogen Puncture Site Drawn in or Patient Temperature 98.6 O2 Saturation 96 ABG pH 7.23 L* ABG pCO2 46 H ABG pO2 246 H ABG HCO3 19 L ABG O2 Content 14.5 ABG Base Excess -7.4 L ABG Methemoglobin 1.9 [place] Test Present Hemoglobin 10.3 L Carboxyhemoglobin 0.7 O2 Delivery Device Or Vent Setting Or Inspired O2 21 Critical Value Yes POC Sodium Sodium 133 L POC Potassium Potassium 5.9 H POC Chloride Chloride 99 Carbon Dioxide 19.4 L Anion Gap 15 POC BUN BUN 44 H Creatinine 2.05 H POC Creatinine Estimated GFR 32 L POC Glucose Random Glucose 414 H Calcium 7.6 L Prot Corrected Calcium Total Bilirubin AST ALT Alkaline Phosphatase Total Creatine Kinase CK-MB (CK-2) CK-MB (CK-2) % Troponin I Total Protein Albumin Serum Alcohol Blood Type Antibody Screen [facility] Gel Crossmatch 06/22/18 06/22/18 06/22/18 12:18 12:45 15:50 WBC RBC Hgb POC Hgb (Calc) Hct POC Hct MCV MCH MCHC RDW Plt Count MPV Neut % (Auto) Lymph % (Auto) [place] % (Auto) Eos % (Auto) Baso % (Auto) Neut # (Auto) Lymph # (Auto) [place] # (Auto) Eos # (Auto) Baso # (Auto) WBC Differential Differential Comment PT INR APTT Fibrinogen Puncture Site Drawn in or Patient Temperature 98.6 O2 Saturation 96 ABG pH 7.37 L ABG pCO2 32 L ABG pO2 251 H ABG HCO3 18 L ABG O2 Content 16.2 ABG Base Excess -6.2 L ABG Methemoglobin 2.0 [place] Test Hemoglobin 11.6 L Carboxyhemoglobin 1.3 O2 Delivery Device Or Vent Setting Inspired O2 21 Critical Value No POC Sodium Sodium 138 POC Potassium Potassium 4.8 D POC Chloride Chloride 102 Carbon Dioxide 20.2 L Anion Gap 16 H POC BUN BUN 44 H Creatinine 2.29 H POC Creatinine Estimated GFR 28 L POC Glucose 475 H* Random Glucose 413 H Calcium 7.9 L Prot Corrected Calcium Total Bilirubin 0.4 AST 434 H ALT 85 H Alkaline Phosphatase 66 Total Creatine Kinase CK-MB (CK-2) CK-MB (CK-2) % Troponin I Total Protein 5.9 L D Albumin 2.0 L D Serum Alcohol Blood Type Antibody Screen MTS Gel Crossmatch 06/22/18 06/22/18 06/22/18 17:36 18:36 19:51 WBC RBC Hgb 10.5 L POC Hgb (Calc) Hct 29.5 L POC Hct MCV MCH MCHC RDW Plt Count MPV Neut % (Auto) Lymph % (Auto) [place] % (Auto) Eos % (Auto) Baso % (Auto) Neut # (Auto) Lymph # (Auto) [place] # (Auto) Eos # (Auto) Baso # (Auto) WBC Differential Differential Comment PT INR APTT Fibrinogen Puncture Site Patient Temperature O2 Saturation ABG pH ABG pCO2 ABG pO2 ABG HCO3 ABG O2 Content ABG Base Excess ABG Methemoglobin [place] Test Hemoglobin Carboxyhemoglobin O2 Delivery Device Vent Setting Inspired O2 Critical Value POC Sodium Sodium POC Potassium Potassium POC Chloride Chloride Carbon Dioxide Anion Gap POC BUN BUN Creatinine POC Creatinine Estimated GFR POC Glucose 326 H Random Glucose Calcium Prot Corrected Calcium Total Bilirubin AST ALT Alkaline Phosphatase Total Creatine Kinase CK-MB (CK-2) CK-MB (CK-2) % Troponin I Total Protein Albumin Serum Alcohol Blood Type Antibody Screen MTS Gel Crossmatch See Detail 06/22/18 06/22/18 06/22/18 20:21 20:21 21:02 WBC 12.3 H RBC 3.30 L Hgb 10.6 L POC Hgb (Calc) Hct 31.2 L POC Hct MCV 94.4 MCH 32.1 MCHC 34.1 RDW 16.0 Plt Count 196 MPV 8.5 Neut % (Auto) Lymph % (Auto) [place] % (Auto) Eos % (Auto) Baso % (Auto) Neut # (Auto) Lymph # (Auto) [place] # (Auto) Eos # (Auto) Baso # (Auto) WBC Differential Differential Comment PT INR APTT Fibrinogen Puncture Site Patient Temperature O2 Saturation ABG pH ABG pCO2 ABG pO2 ABG HCO3 ABG O2 Content ABG Base Excess ABG Methemoglobin [place] Test Hemoglobin Carboxyhemoglobin O2 Delivery Device Vent Setting Inspired O2 Critical Value POC Sodium Sodium 136 POC Potassium Potassium 5.5 H POC Chloride Chloride 104 Carbon Dioxide 18.1 L Anion Gap 14 POC BUN BUN 47 H Creatinine 2.23 H POC Creatinine Estimated GFR 29 L POC Glucose 554 H* Random Glucose 308 H D Calcium 7.5 L Prot Corrected Calcium Total Bilirubin AST ALT Alkaline Phosphatase Total Creatine Kinase CK-MB (CK-2) CK-MB (CK-2) % Troponin I Total Protein Albumin Serum Alcohol Blood Type Antibody Screen MTS Gel Crossmatch 06/22/18 06/22/18 06/22/18 21:05 21:59 23:17 WBC RBC Hgb POC Hgb (Calc) Hct POC Hct MCV MCH MCHC RDW Plt Count MPV Neut % (Auto) Lymph % (Auto) [place] % (Auto) Eos % (Auto) Baso % (Auto) Neut # (Auto) Lymph # (Auto) [place] # (Auto) Eos # (Auto) Baso # (Auto) WBC Differential Differential Comment PT INR APTT Fibrinogen Puncture Site Patient Temperature O2 Saturation ABG pH ABG pCO2 ABG pO2 ABG HCO3 ABG O2 Content ABG Base Excess ABG Methemoglobin [place] Test Hemoglobin Carboxyhemoglobin O2 Delivery Device Vent Setting Inspired O2 Critical Value POC Sodium Sodium POC Potassium Potassium POC Chloride Chloride Carbon Dioxide Anion Gap POC BUN BUN Creatinine POC Creatinine Estimated GFR POC Glucose 312 H 319 H 258 H Random Glucose Calcium Prot Corrected Calcium Total Bilirubin AST ALT Alkaline Phosphatase Total Creatine Kinase CK-MB (CK-2) CK-MB (CK-2) % Troponin I Total Protein Albumin Serum Alcohol Blood Type Antibody Screen MTS Gel Crossmatch 06/23/18 06/23/18 06/23/18 00:22 01:16 02:11 WBC RBC Hgb POC Hgb (Calc) Hct POC Hct MCV MCH MCHC RDW Plt Count MPV Neut % (Auto) Lymph % (Auto) [place] % (Auto) Eos % (Auto) Baso % (Auto) Neut # (Auto) Lymph # (Auto) [place] # (Auto) Eos # (Auto) Baso # (Auto) WBC Differential Differential Comment PT INR APTT Fibrinogen Puncture Site Patient Temperature O2 Saturation ABG pH ABG pCO2 ABG pO2 ABG HCO3 ABG O2 Content ABG Base Excess ABG Methemoglobin [place] Test Hemoglobin Carboxyhemoglobin O2 Delivery Device Vent Setting Inspired O2 Critical Value POC Sodium Sodium POC Potassium Potassium POC Chloride Chloride Carbon Dioxide Anion Gap POC BUN BUN Creatinine POC Creatinine Estimated GFR POC Glucose 317 H 330 H 305 H Random Glucose Calcium Prot Corrected Calcium Total Bilirubin AST ALT Alkaline Phosphatase Total Creatine Kinase CK-MB (CK-2) CK-MB (CK-2) % Troponin I Total Protein Albumin Serum Alcohol Blood Type Antibody Screen [facility] Gel Crossmatch 06/23/18 06/23/18 06/23/18 03:06 04:04 05:07 WBC RBC Hgb POC Hgb (Calc) Hct POC Hct MCV MCH MCHC RDW Plt Count MPV Neut % (Auto) Lymph % (Auto) [place] % (Auto) Eos % (Auto) Baso % (Auto) Neut # (Auto) Lymph # (Auto) [place] # (Auto) Eos # (Auto) Baso # (Auto) WBC Differential Differential Comment PT INR APTT Fibrinogen Puncture Site Patient Temperature O2 Saturation ABG pH ABG pCO2 ABG pO2 ABG HCO3 ABG O2 Content ABG Base Excess ABG Methemoglobin [place] Test Hemoglobin Carboxyhemoglobin O2 Delivery Device Vent Setting Inspired O2 Critical Value POC Sodium Sodium POC Potassium Potassium POC Chloride Chloride Carbon Dioxide Anion Gap POC BUN BUN Creatinine POC Creatinine Estimated GFR POC Glucose 272 H 296 H 264 H Random Glucose Calcium Prot Corrected Calcium Total Bilirubin AST ALT Alkaline Phosphatase Total Creatine Kinase CK-MB (CK-2) CK-MB (CK-2) % Troponin I Total Protein Albumin Serum Alcohol Blood Type Antibody Screen [facility] Gel Crossmatch 06/23/18 06/23/18 06/23/18 05:10 05:10 05:48 WBC 14.8 H RBC 3.32 L Hgb 10.5 L POC Hgb (Calc) Hct 31.1 L POC Hct MCV 93.5 MCH 31.5 MCHC 33.7 RDW 15.7 Plt Count 200 MPV 8.5 Neut % (Auto) 88.3 H Lymph % (Auto) 4.9 L [place] % (Auto) 6.8 Eos % (Auto) 0.0 Baso % (Auto) 0.0 Neut # (Auto) 13.1 H Lymph # (Auto) 0.7 L [place] # (Auto) 1.0 H Eos # (Auto) 0.0 Baso # (Auto) 0.0 WBC Differential . Differential Comment Auto diff final PT INR APTT Fibrinogen Puncture Site Art line Patient Temperature 98.6 O2 Saturation 97 ABG pH 7.52 H* ABG pCO2 19 L* ABG pO2 155 H ABG HCO3 15 L* ABG O2 Content 13.9 ABG Base Excess -7.0 L ABG Methemoglobin 1.3 [place] Test Hemoglobin 10.0 L Carboxyhemoglobin 1.4 O2 Delivery Device Ventilator Vent Setting Prvc/ac Inspired O2 40 Critical Value Yes POC Sodium Sodium 137 POC Potassium Potassium 5.0 POC Chloride Chloride 106 Carbon Dioxide 18.1 L Anion Gap 13 POC BUN BUN 50 H Creatinine 2.62 H POC Creatinine Estimated GFR 24 L POC Glucose Random Glucose 275 H Calcium 7.0 L* Prot Corrected Calcium 7.7 L Total Bilirubin 0.2 AST 735 H ALT 127 H Alkaline Phosphatase 67 Total Creatine Kinase CK-MB (CK-2) CK-MB (CK-2) % Troponin I Total Protein 5.8 L Albumin 1.8 L Serum Alcohol Blood Type Antibody Screen MTS Gel Crossmatch 06/23/18 06/23/18 06/23/18 06:09 07:13 08:08 WBC RBC Hgb POC Hgb (Calc) Hct POC Hct MCV MCH MCHC RDW Plt Count MPV Neut % (Auto) Lymph % (Auto) [place] % (Auto) Eos % (Auto) Baso % (Auto) Neut # (Auto) Lymph # (Auto) [place] # (Auto) Eos # (Auto) Baso # (Auto) WBC Differential Differential Comment PT INR APTT Fibrinogen Puncture Site Patient Temperature O2 Saturation ABG pH ABG pCO2 ABG pO2 ABG HCO3 ABG O2 Content ABG Base Excess ABG Methemoglobin [place] Test Hemoglobin Carboxyhemoglobin O2 Delivery Device Vent Setting Inspired O2 Critical Value POC Sodium Sodium POC Potassium Potassium POC Chloride Chloride Carbon Dioxide Anion Gap POC BUN BUN Creatinine POC Creatinine Estimated GFR POC Glucose 275 H 274 H 271 H Random Glucose Calcium Prot Corrected Calcium Total Bilirubin AST ALT Alkaline Phosphatase Total Creatine Kinase CK-MB (CK-2) CK-MB (CK-2) % Troponin I Total Protein Albumin Serum Alcohol Blood Type Antibody Screen MTS Gel Crossmatch 06/23/18 06/23/18 06/23/18 09:12 10:12 11:22 WBC RBC Hgb POC Hgb (Calc) Hct POC Hct MCV MCH MCHC RDW Plt Count MPV Neut % (Auto) Lymph % (Auto) [place] % (Auto) Eos % (Auto) Baso % (Auto) Neut # (Auto) Lymph # (Auto) [place] # (Auto) Eos # (Auto) Baso # (Auto) WBC Differential Differential Comment PT INR APTT Fibrinogen Puncture Site Patient Temperature O2 Saturation ABG pH ABG pCO2 ABG pO2 ABG HCO3 ABG O2 Content ABG Base Excess ABG Methemoglobin [place] Test Hemoglobin Carboxyhemoglobin O2 Delivery Device Vent Setting Inspired O2 Critical Value POC Sodium Sodium POC Potassium Potassium POC Chloride Chloride Carbon Dioxide Anion Gap POC BUN BUN Creatinine POC Creatinine Estimated GFR POC Glucose 287 H 257 H 274 H Random Glucose Calcium Prot Corrected Calcium Total Bilirubin AST ALT Alkaline Phosphatase Total Creatine Kinase CK-MB (CK-2) CK-MB (CK-2) % Troponin I Total Protein Albumin Serum Alcohol Blood Type Antibody Screen MTS Gel Crossmatch 06/23/18 06/23/18 06/23/18 12:05 14:00 17:02 WBC RBC Hgb POC Hgb (Calc) Hct POC Hct MCV MCH MCHC RDW Plt Count MPV Neut % (Auto) Lymph % (Auto) [place] % (Auto) Eos % (Auto) Baso % (Auto) Neut # (Auto) Lymph # (Auto) [place] # (Auto) Eos # (Auto) Baso # (Auto) WBC Differential Differential Comment PT INR APTT Fibrinogen Puncture Site Patient Temperature O2 Saturation ABG pH ABG pCO2 ABG pO2 ABG HCO3 ABG O2 Content ABG Base Excess ABG Methemoglobin [place] Test Hemoglobin Carboxyhemoglobin O2 Delivery Device Vent Setting Inspired O2 Critical Value POC Sodium Sodium POC Potassium Potassium POC Chloride Chloride Carbon Dioxide Anion Gap POC BUN BUN Creatinine POC Creatinine Estimated GFR POC Glucose 304 H 299 H 256 H Random Glucose Calcium Prot Corrected Calcium Total Bilirubin AST ALT Alkaline Phosphatase Total Creatine Kinase CK-MB (CK-2) CK-MB (CK-2) % Troponin I Total Protein Albumin Serum Alcohol Blood Type Antibody Screen MTS Gel Crossmatch 06/23/18 06/23/18 06/23/18 18:30 19:26 20:25 WBC RBC Hgb POC Hgb (Calc) Hct POC Hct MCV MCH MCHC RDW Plt Count MPV Neut % (Auto) Lymph % (Auto) [place] % (Auto) Eos % (Auto) Baso % (Auto) Neut # (Auto) Lymph # (Auto) [place] # (Auto) Eos # (Auto) Baso # (Auto) WBC Differential Differential Comment PT INR APTT Fibrinogen Puncture Site Patient Temperature O2 Saturation ABG pH ABG pCO2 ABG pO2 ABG HCO3 ABG O2 Content ABG Base Excess ABG Methemoglobin [place] Test Hemoglobin Carboxyhemoglobin O2 Delivery Device Vent Setting Inspired O2 Critical Value POC Sodium Sodium POC Potassium Potassium POC Chloride Chloride Carbon Dioxide Anion Gap POC BUN BUN Creatinine POC Creatinine Estimated GFR POC Glucose 262 H 221 H 241 H Random Glucose Calcium Prot Corrected Calcium Total Bilirubin AST ALT Alkaline Phosphatase Total Creatine Kinase CK-MB (CK-2) CK-MB (CK-2) % Troponin I Total Protein Albumin Serum Alcohol Blood Type Antibody Screen MTS Gel Crossmatch 06/23/18 06/23/18 06/23/18 20:33 21:56 22:37 WBC RBC Hgb POC Hgb (Calc) Hct POC Hct MCV MCH MCHC RDW Plt Count MPV Neut % (Auto) Lymph % (Auto) [place] % (Auto) Eos % (Auto) Baso % (Auto) Neut # (Auto) Lymph # (Auto) [place] # (Auto) Eos # (Auto) Baso # (Auto) WBC Differential Differential Comment PT INR APTT Fibrinogen Puncture Site Patient Temperature O2 Saturation ABG pH ABG pCO2 ABG pO2 ABG HCO3 ABG O2 Content ABG Base Excess ABG Methemoglobin [place] Test Hemoglobin Carboxyhemoglobin O2 Delivery Device Vent Setting Inspired O2 Critical Value POC Sodium Sodium POC Potassium Potassium POC Chloride Chloride Carbon Dioxide Anion Gap POC BUN BUN Creatinine POC Creatinine Estimated GFR POC Glucose 241 H 265 H 243 H Random Glucose Calcium Prot Corrected Calcium Total Bilirubin AST ALT Alkaline Phosphatase Total Creatine Kinase CK-MB (CK-2) CK-MB (CK-2) % Troponin I Total Protein Albumin Serum Alcohol Blood Type Antibody Screen MTS Gel Crossmatch 06/23/18 06/24/18 06/24/18 23:50 00:49 01:52 WBC RBC Hgb POC Hgb (Calc) Hct POC Hct MCV MCH MCHC RDW Plt Count MPV Neut % (Auto) Lymph % (Auto) [place] % (Auto) Eos % (Auto) Baso % (Auto) Neut # (Auto) Lymph # (Auto) [place] # (Auto) Eos # (Auto) Baso # (Auto) WBC Differential Differential Comment PT INR APTT Fibrinogen Puncture Site Patient Temperature O2 Saturation ABG pH ABG pCO2 ABG pO2 ABG HCO3 ABG O2 Content ABG Base Excess ABG Methemoglobin [place] Test Hemoglobin Carboxyhemoglobin O2 Delivery Device Vent Setting Inspired O2 Critical Value POC Sodium Sodium POC Potassium Potassium POC Chloride Chloride Carbon Dioxide Anion Gap POC BUN BUN Creatinine POC Creatinine Estimated GFR POC Glucose 260 H 237 H 255 H Random Glucose Calcium Prot Corrected Calcium Total Bilirubin AST ALT Alkaline Phosphatase Total Creatine Kinase CK-MB (CK-2) CK-MB (CK-2) % Troponin I Total Protein Albumin Serum Alcohol Blood Type Antibody Screen [facility] Gel Crossmatch 06/24/18 06/24/18 06/24/18 02:58 03:24 04:35 WBC 12.8 H RBC 2.82 L Hgb 9.0 L POC Hgb (Calc) Hct 26.7 L POC Hct MCV 94.6 MCH 31.9 MCHC 33.8 RDW 16.1 Plt Count 167 MPV 8.5 Neut % (Auto) 83.2 H Lymph % (Auto) 8.7 L [place] % (Auto) 7.9 Eos % (Auto) 0.1 Baso % (Auto) 0.1 Neut # (Auto) 10.6 H Lymph # (Auto) 1.1 [place] # (Auto) 1.0 H Eos # (Auto) 0.0 Baso # (Auto) 0.0 WBC Differential . Differential Comment Auto diff final PT INR APTT Fibrinogen Puncture Site Patient Temperature O2 Saturation ABG pH ABG pCO2 ABG pO2 ABG HCO3 ABG O2 Content ABG Base Excess ABG Methemoglobin [place] Test Hemoglobin Carboxyhemoglobin O2 Delivery Device Vent Setting Inspired O2 Critical Value POC Sodium Sodium POC Potassium Potassium POC Chloride Chloride Carbon Dioxide Anion Gap POC BUN BUN Creatinine POC Creatinine Estimated GFR POC Glucose 277 H 246 H Random Glucose Calcium Prot Corrected Calcium Total Bilirubin AST ALT Alkaline Phosphatase Total Creatine Kinase CK-MB (CK-2) CK-MB (CK-2) % Troponin I Total Protein Albumin Serum Alcohol Blood Type Antibody Screen [facility] Gel Crossmatch 06/24/18 06/24/18 06/24/18 04:35 05:11 05:50 WBC RBC Hgb POC Hgb (Calc) Hct POC Hct MCV MCH MCHC RDW Plt Count MPV Neut % (Auto) Lymph % (Auto) [place] % (Auto) Eos % (Auto) Baso % (Auto) Neut # (Auto) Lymph # (Auto) [place] # (Auto) Eos # (Auto) Baso # (Auto) WBC Differential Differential Comment PT INR APTT Fibrinogen Puncture Site Patient Temperature O2 Saturation ABG pH ABG pCO2 ABG pO2 ABG HCO3 ABG O2 Content ABG Base Excess ABG Methemoglobin [place] Test Hemoglobin Carboxyhemoglobin O2 Delivery Device Vent Setting Inspired O2 Critical Value POC Sodium Sodium 141 POC Potassium Potassium 4.0 D POC Chloride Chloride 110 H Carbon Dioxide 19.8 L Anion Gap 11 POC BUN BUN 53 H Creatinine 2.33 H POC Creatinine Estimated GFR 28 L POC Glucose 247 H 240 H Random Glucose 243 H Calcium 6.7 L* Prot Corrected Calcium 7.5 L Total Bilirubin 0.2 AST 347 H ALT 55 Alkaline Phosphatase 64 Total Creatine Kinase CK-MB (CK-2) CK-MB (CK-2) % Troponin I Total Protein 5.4 L Albumin 1.7 L Serum Alcohol Blood Type Antibody Screen MTS Gel Crossmatch 06/24/18 06/24/18 06/24/18 05:57 06:40 08:01 WBC RBC Hgb POC Hgb (Calc) Hct POC Hct MCV MCH MCHC RDW Plt Count MPV Neut % (Auto) Lymph % (Auto) [place] % (Auto) Eos % (Auto) Baso % (Auto) Neut # (Auto) Lymph # (Auto) [place] # (Auto) Eos # (Auto) Baso # (Auto) WBC Differential Differential Comment PT INR APTT Fibrinogen Puncture Site [place] Patient Temperature 98.6 O2 Saturation 97 ABG pH 7.44 H ABG pCO2 25 L ABG pO2 137 H ABG HCO3 16 L* ABG O2 Content 19.5 ABG Base Excess -7.1 L ABG Methemoglobin 1.2 [place] Test Hemoglobin 14.3 Carboxyhemoglobin 1.2 O2 Delivery Device Ventilator Vent Setting See comment Inspired O2 30 Critical Value Yes POC Sodium Sodium POC Potassium Potassium POC Chloride Chloride Carbon Dioxide Anion Gap POC BUN BUN Creatinine POC Creatinine Estimated GFR POC Glucose 214 H 236 H Random Glucose Calcium Prot Corrected Calcium Total Bilirubin AST ALT Alkaline Phosphatase Total Creatine Kinase CK-MB (CK-2) CK-MB (CK-2) % Troponin I Total Protein Albumin Serum Alcohol Blood Type Antibody Screen MTS Gel Crossmatch 06/24/18 06/24/18 06/24/18 09:12 10:04 11:01 WBC RBC Hgb POC Hgb (Calc) Hct POC Hct MCV MCH MCHC RDW Plt Count MPV Neut % (Auto) Lymph % (Auto) [place] % (Auto) Eos % (Auto) Baso % (Auto) Neut # (Auto) Lymph # (Auto) [place] # (Auto) Eos # (Auto) Baso # (Auto) WBC Differential Differential Comment PT INR APTT Fibrinogen Puncture Site Patient Temperature O2 Saturation ABG pH ABG pCO2 ABG pO2 ABG HCO3 ABG O2 Content ABG Base Excess ABG Methemoglobin [place] Test Hemoglobin Carboxyhemoglobin O2 Delivery Device Vent Setting Inspired O2 Critical Value POC Sodium Sodium POC Potassium Potassium POC Chloride Chloride Carbon Dioxide Anion Gap POC BUN BUN Creatinine POC Creatinine Estimated GFR POC Glucose 267 H 278 H 249 H Random Glucose Calcium Prot Corrected Calcium Total Bilirubin AST ALT Alkaline Phosphatase Total Creatine Kinase CK-MB (CK-2) CK-MB (CK-2) % Troponin I Total Protein Albumin Serum Alcohol Blood Type Antibody Screen MTS Gel Crossmatch 06/24/18 06/24/18 12:13 13:09 WBC RBC Hgb POC Hgb (Calc) Hct POC Hct MCV MCH MCHC RDW Plt Count MPV Neut % (Auto) Lymph % (Auto) [place] % (Auto) Eos % (Auto) Baso % (Auto) Neut # (Auto) Lymph # (Auto) [place] # (Auto) Eos # (Auto) Baso # (Auto) WBC Differential Differential Comment PT INR APTT Fibrinogen Puncture Site Patient Temperature O2 Saturation ABG pH ABG pCO2 ABG pO2 ABG HCO3 ABG O2 Content ABG Base Excess ABG Methemoglobin [place] Test Hemoglobin Carboxyhemoglobin O2 Delivery Device Vent Setting Inspired O2 Critical Value POC Sodium Sodium POC Potassium Potassium POC Chloride Chloride Carbon Dioxide Anion Gap POC BUN BUN Creatinine POC Creatinine Estimated GFR POC Glucose 212 H 231 H Random Glucose Calcium Prot Corrected Calcium Total Bilirubin AST ALT Alkaline Phosphatase Total Creatine Kinase CK-MB (CK-2) CK-MB (CK-2) % Troponin I Total Protein Albumin Serum Alcohol Blood Type Antibody Screen MTS Gel Crossmatch Result Diagrams: 06/24/18 04:35 06/24/18 04:35 Imaging: Cervical Spine X-Ray 06/22/18 00:00 CONCLUSION: There is post anterior cervical fusion at C3-C4 as well as within the lower cervical spine. Chest CT 06/22/18 00:00 CONCLUSION: No acute abnormality is identified within the chest. Venous Doppler Study 06/22/18 00:00 CONCLUSION: 1. No evidence of deep venous thrombosis within the right lower extremity. Pelvis X-Ray 06/22/18 00:49 CONCLUSION: No acute pelvis abnormality is identified. Abdomen/Pelvis CT 06/22/18 00:51 CONCLUSION: 1. No acute traumatic injury is identified within the abdomen or pelvis. 2. Moderate to severe atherosclerotic disease. Cervical Spine CT 06/22/18 00:51 CONCLUSION: 1. There is a fracture involving the left C3 transverse process and likely pedicle. 2. Additionally, there is retrolisthesis of C3 on C4 which is suspected to be acute given the break in the anterior vertebral osteophytes at this level. 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 There is also asymmetric widening of the right C3-C4 facet joint. The severe spinal canal stenosis likely explains the clinical findings. 3. Otherwise, multilevel degenerative change, as above. Lumbar Spine CT 06/22/18 00:51 CONCLUSION: No acute lumbar spine injury is identified. There are degenerative changes throughout the lumbar spine consisting primarily of facet arthrosis with likely mild spinal canal narrowing at L2-L3 and L3-L4. Thoracic Spine CT 06/22/18 00:51 CONCLUSION: Accentuated thoracic kyphosis with multilevel degenerative change. No fracture or acute thoracic spine abnormality is identified. Cervical Spine MRI 06/22/18 06:40 CONCLUSION: 1. Fracture at C3 with retrolisthesis compressing the cord causing severe canal stenosis. 2. Edema within the cord from C2 to C5. Thoracic Spine MRI 06/22/18 06:41 CONCLUSION: 1. Kyphosis without compression deformity. 2. Left-sided protrusion at T9-10 without canal stenosis. There is narrowing of the left lateral recess. 3. Asymmetric left-sided disc bulge T10-11. Lumbar Spine MRI 06/22/18 06:42 CONCLUSION: 1. Multilevel disc bulges. 2. No compression fracture. Head CT 06/23/18 00:00 CONCLUSION: 1. Interval development of intraparenchymal and subdural hemorrhage involving the left temporal lobe tracking over the tentorium. 2. 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 3. Study is limited by the artifact generated from the halo. . Chest X-Ray 06/24/18 06:00 CONCLUSION: Underinflated examination with persistent left basilar opacity which could represent atelectasis or airspace consolidation. Procedures: * 06/22/18 - C3-4 anterior cervical discectomy, interbody arthodhesis using PEEK cage filled with autologous bone graft, plate and screws and Halo brace placement. * 06/22/18 - right arm fasciotomy. Assessment and Plan - Disease Oriented Problem List (1) Respiratory failure (2) Neurogenic shock, traumatic (3) Compartment syndrome (4) Cervical spine fracture (5) Paralysis (6) Fall - Symptom Scale (1) Pain 0-10 Scale: Unable to quantify Pertinent Non-Medical Issues: Psychosocial: Originally from [place]. Moved to [place] at age 3. for 27 years to current , [place]. 2 children (1 son, 1 daughter-estranged). 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 Was in the [employer] during [place]. Parents , father of lung cancer, mother unknown. One brother and one sister (lives in [place]). No tobacco use. Seldom social drinker. Spiritual: Member of [employer]. Welcomes card player support. Congregational members also visiting per . Legal: Patient is not capacitated to make his own health care decisions, not expected to regain capacity. Has Designation of Health Care Surrogate that designate Krystle Kevin as health care surrogate; Claritza Gan as alternate HCS and Naz Candelario as second alternate. Ethical issues impacting care: No known concerns at this time. Important Contacts: * Krystle Kevin, /HCS: [phone] * Manuelito Kevin, son: [phone] * Aishwarya, friend: [phone] . Prognosis: Mr. Kevin is an unfortunate 68 year old male who suffered a fall at home and was not found for about 12 hours. He suffered a C3-C4 spinal cord compression that resulted in paralyzation. He underwent C3-4 anterior cervical discectomy and Halo brace placement and right arm fasciotomy. Now with interval development of intraparenchymal and subdural hemorrhage involving the left temporal lobe tracking over the tentorium, large area of infarction involving the left posterior cerebral artery territory. His prognosis is poor. Code Status: No Code DNR Plan: * Patient is not capacitated to make his own health care decisions, not expected to regain capacity. Has Designation of Health Care Surrogate that designate Krystle Kevin as health care surrogate; Claritza Gan as alternate HCS and Naz Candelario as second alternate. * NO CODE. * Family verbalizes patient would not want to live a life of dependence. need "some time" before considering transition to comfort. She would like family to say their good-byes. She wants to review his Advance Directives and speak with other family and friends. She requests I call her with medical update 06/25/18. * SYMPTOMS: Pain: secondary to recent falls, C spine injury,surgery, halo placement, intubation, shock, new intracranial hemorrhage, etc. Unresponsive off all sedation. No new medication recommendations at this time. * Palliative care contact information provided. * Palliative care will continue to follow to assist with symptom management, communication and further calrification of goals of medical treatment. Attestation Attestation: To help prompt me to consider important information that might be impacting today's encounter and assessment, information from prior notes written by myself or my colleagues may have been "brought forward" into today's note. My signature on this note, however, is an attestation that I personally performed the exam, history, and/or decision-making noted today, and, unless otherwise indicated, the interactions with patient, family, and staff as well as the review of records all occurred today. I also attest that the listed assessment and stated plan reflect my best clinical judgment today based on the combination of historical information, prior notes, and today's exam/ interactions. When time spent is documented, it refers only to time spent today by the signer, or if indicated, combined time spent today by collaborating physician/nurse practitioner.
[2018-06-24] MEDS ORDERED: Insulin Regular (For Infusion) 100 UNIT in Sodium Chlor 0.9% Inj 99 ML IV.CONT PRN (19:52)
[2018-06-25] MEDS: Oral Hygiene Kit OROPHARYNG SCH ×4 (00:26→16:41)
[2018-06-25] MEDS: Norepinephrine Inj 4 MG in Sodium Chlor 0.9% Inj 246 ML IV.SIG PRN ×2 (02:39→22:29)
--- NOTE | 2018-06-25 04:09 | XR ---
EXAM DATE: 06/25/2018 4:06 AM EDT AGE/SEX: 68 years / Male INDICATIONS: Follow up trauma. CLINICAL DATA: This is the patient's subsequent encounter. Patient reports that signs and symptoms h ave been present for 4 - 6 days and indicates a pain score of Nonresponsive. MEDICAL/SURGICAL HISTORY: . Diabetes mellitus type II. Hypertension. . Fusion, cervical. [place] [facility] [place]. . FINDINGS: ET tube tip 1.7 cm above the fannie. Left central line tip projects over the distal superior vena cav a. Cardiac leads project over the chest. There is persisting consolidation in the left lower lung wit h loss of delineation of the entire left hemidiaphragm. The right lung is clear. External halo brace hardware. CONCLUSION: 1. ET tube tip 1.7 cm above the fannie and needs to be withdrawn 1 cm. 2. Persistent left lower lobe consolidation. Electronically signed by: Ant Hudson MD 06/25/2018 4:08 AM EDT
[2018-06-25 06:41] LABS: ABG Base Excess -7.2 mmol/L (-2-2); ABG PCO2 22 mmHg (38-42); ABG PO2 168 mmHg (61-120)
[2018-06-25 08:02] LABS: Baso % (Auto) 0.1 % (0.0-2.0); Eos # (Auto) 0.1 th/mm3 (0.0-0.4); Eos % (Auto) 0.7 % (0.0-4.0); Hematocrit 23.9 % (39.0-51.0); Lymph # (Auto) 0.9 th/mm3 (1.0-4.8); Lymph % (Auto) 10.3 % (9.0-44.0); Mean Corpuscular HGB Conc 33.5 % (32.0-36.0); Mean Corpuscular Hemoglobin 31.6 pg (27.0-34.0); Mean Corpuscular Volume 94.2 fL (80.0-100.0); Mean Platelet Volume 8.6 fL (7.0-11.0); Mono # (Auto) 0.6 th/mm3 (0.0-0.9); Mono % (Auto) 6.8 % (0.0-8.0); Neut # (Auto) 6.9 th/mm3 (1.8-7.7); Neut % (Auto) 82.1 % (16.0-70.0); Platelet Count 139 th/mm3 (150-450); Red Blood Count 2.53 mil/mm3 (4.50-5.90); Red Cell Distribution Width 16.4 % (11.6-17.2); White Blood Count 8.4 th/mm3 (4.0-11.0)
[2018-06-25 08:45] LABS: Albumin 1.5 g/dL (3.4-5.0); Carbon Dioxide 18.4 meq/L (21.0-32.0); Potassium 3.6 meq/L (3.5-5.1); Total Protein 5.5 g/dL (6.4-8.2)
[2018-06-25] MEDS ORDERED: Dextrose 50% in Water 50 ML Vial IV.PUSH PRN (09:15)
[2018-06-25] MEDS: Sod Chloride 0.9% Inj 1,000 ML IV.SIG SCH ×2 (09:46→19:53)
[2018-06-25] MEDS: Chlorhexidine 0.12% Oral Kit 15 ML UDC OROPHARYNG SCH ×2 (10:38→20:31)
[2018-06-25] MEDS: Chlorhexidine Gluconate 2% 1 Pack (2 Cloths) TOPICAL SCH (10:38)
[2018-06-25] MEDS: Senna/Docusate Sodium 8.6/50 MG Tablet PO SCH ×2 (10:38→20:33)
[2018-06-25] MEDS: Insulin NovoLOG Aspart Correctional Sugar Inj SQ SCH ×4 (10:39→20:57)
--- NOTE | 2018-06-25 10:39 | P.PNNS ---
Subjective Interval history: 06/25: intubated, no changes to neuro status overnight. palliative care following. Physical Exam Vital signs: Vital Signs 06/24/18 10:45 06/24/18 11:00 06/24/18 11:15 Temperature Pulse Rate 59 L 59 L 58 L Respiratory Rate 14 14 0 L Blood Pressure 104/45 L 105/45 L Pulse Oximetry 100 100 100 06/24/18 11:30 06/24/18 11:45 06/24/18 12:00 Temperature Pulse Rate 58 L 58 L 58 L Respiratory Rate 0 L 0 L 0 L Blood Pressure Pulse Oximetry 100 99 100 06/24/18 12:15 06/24/18 13:00 06/24/18 14:00 Temperature 97.5 F L Pulse Rate 58 L 58 L 65 Respiratory Rate 0 L 0 L 14 Blood Pressure 106/46 L 102/49 L Pulse Oximetry 100 100 100 06/24/18 16:00 06/24/18 17:25 06/24/18 20:00 Temperature 96.3 F L 97.6 F Pulse Rate 59 L 58 L Respiratory Rate 14 14 14 Blood Pressure 132/59 L 111/50 L Pulse Oximetry 100 100 100 06/24/18 20:10 06/24/18 23:07 06/25/18 00:00 Temperature 94.2 F L Pulse Rate 56 L Respiratory Rate 14 14 14 Blood Pressure 132/58 L Pulse Oximetry 100 100 100 06/25/18 03:27 06/25/18 04:00 06/25/18 08:27 Temperature 95.0 F L Pulse Rate 57 L Respiratory Rate 14 14 12 Blood Pressure 121/55 L Pulse Oximetry 100 100 100 Intake & Output 06/24/18 06/25/18 06/25/18 18:59 06:59 18:59 Intake Total 1043 / 1043 1250 / 1250 1000 / 1000 Output Total 650 / 650 1305 / 1305 Balance 393 / 393 -55 / -55 1000 / 1000 Weight 104.8 kg Intake: IV 1043 / 1043 1250 / 1250 1000 / 1000 Versed Inj 50 mg In 50 ml @ 2 19 / 19 MG/HR 2 mls/hr IV.CONT TITRATE PRN Rx#:[id number] Levophed Inj 4 MG In NS Inj 246 250 / 250 ML @ 2 MCG/MIN 7.5 mls/hr IV. SIG TITRATE PRN Rx#:[id number] NS Inj 1,000 ML @ 100 mls/hr IV 1000 / 1000 1000 / 1000 1000 / 1000 .SIG .Q10H BISI Rx#:[id number] fentaNYL 10 mcg/mL Premix Drip / 2,500 mcg In 250 ml @ 50 MCG/HR 5 mls/hr IV.SIG TITRATE PRN Rx #:[id number] Oral 0 / 0 Output: Urine Amount (Catheter) 650 / 650 1300 / 1300 Indwelling Urethral Catheter 650 / 650 1300 / 1300 Wound Drainage 5 / 5 # 1 Anterior Neck 5 / 5 Other: # Bowel Movements 0 0 Narrative: GENERAL: Intubated, currently without sedation. SKIN: Warm and dry. HEAD: Normocephalic. Pin sites x 4 clean and dry. EYES: No scleral icterus. No injection or drainage. NECK: immobilized by halo brace, wound with Optifoam dressing, TRICE drain in place. CARDIOVASCULAR: regular rate and rhythm RESPIRATORY: mechanically ventilated GASTROINTESTINAL: Abdomen soft, non-tender, nondistended. MUSCULOSKELETAL: No cyanosis, or edema. NEURO: comatose, no sedation. does not open eyes, not following commands. Right pupil 5 mm nonreactive, left pupil 4-5 mm nonreactive, no corneal reflexes bilaterally, no oculocephalic. b/l Babinski response, slight withdrawal to local stimuli to both feet bilaterally. No response in the upper extremities. - Urinary Catheter Management Indwelling Urethral Catheter Cath placed during this visit: yes Reason for continuing: Hourly intake/output Insertion date: 06/22/18 Insertion time: 06:00 Assessment and Plan - Plan 68 year old male with a C3-C4 traumatic fracture subluxation with spinal cord injury and completed tetraplegia s/p C3-4 anterior cervical discectomy, interbody arthrodesis using PEEK cage filled with autologous bone graft, Simplicity plate and screws, placement of halo brace 06/22/18 neuro exam POD 1 with unequal pupils dilated and fixed, no improvement in exam Cervical Spine X-Ray 06/22/18 00:00 CONCLUSION: There is post anterior cervical fusion at C3-C4 as well as within the lower cervical spine. Chest CT 06/22/18 00:00 CONCLUSION: No acute abnormality is identified within the chest. Venous Doppler Study 06/22/18 00:00 CONCLUSION: 1. No evidence of deep venous thrombosis within the right lower extremity. Pelvis X-Ray 06/22/18 00:49 CONCLUSION: No acute pelvis abnormality is identified. Abdomen/Pelvis CT 06/22/18 00:51 CONCLUSION: 1. No acute traumatic injury is identified within the abdomen or pelvis. 2. Moderate to severe atherosclerotic disease. Cervical Spine CT 06/22/18 00:51 CONCLUSION: 1. There is a fracture involving the left C3 transverse process and likely pedicle. 2. Additionally, there is retrolisthesis of C3 on C4 which is suspected to be acute given the break in the anterior vertebral osteophytes at this level. 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 There is also asymmetric widening of the right C3-C4 facet joint. The severe spinal canal stenosis likely explains the clinical findings. 3. Otherwise, multilevel degenerative change, as above. Lumbar Spine CT 06/22/18 00:51 CONCLUSION: No acute lumbar spine injury is identified. There are degenerative changes throughout the lumbar spine consisting primarily of facet arthrosis with likely mild spinal canal narrowing at L2-L3 and L3-L4. Thoracic Spine CT 06/22/18 00:51 CONCLUSION: Accentuated thoracic kyphosis with multilevel degenerative change. No fracture or acute thoracic spine abnormality is identified. Cervical Spine MRI 06/22/18 06:40 CONCLUSION: 1. Fracture at C3 with retrolisthesis compressing the cord causing severe canal stenosis. 2. Edema within the cord from C2 to C5. Thoracic Spine MRI 06/22/18 06:41 CONCLUSION: 1. Kyphosis without compression deformity. 2. Left-sided protrusion at T9-10 without canal stenosis. There is narrowing of the left lateral recess. 3. Asymmetric left-sided disc bulge T10-11. Lumbar Spine MRI 06/22/18 06:42 CONCLUSION: 1. Multilevel disc bulges. 2. No compression fracture. Head CT 06/23/18 00:00 CONCLUSION: 1. Interval development of intraparenchymal and subdural hemorrhage involving the left temporal lobe tracking over the tentorium. 2. 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 3. Study is limited by the artifact generated from the halo. . Plan: nonsurgical management of ICH, dc TRICE drain cont neuro checks cont pin care cont critical care management per trauma team palliative care following
[2018-06-25] MEDS: Pantoprazole Inj 40 MG Vial IV.PUSH SCH (10:41)
--- NOTE | 2018-06-25 11:16 | P.PNCC ---
Subjective Brief History: This 68-year-old male was brought in as a trauma alert around 1:30 a.m. The patient apparently fell around noon at home. Was lying on his right side, unable to move for about 12 hours until a friend came to check on him. The patient was then transferred to our institution. He is noted to be paralyzed from the neck down, although on arrival, he is awake and alert, somewhat hypertensive. On arrival [place] coma scale is 15. The patient is awake, alert and oriented. His breathing is intact. Patient has no sensation or motion in upper or lower extremities. Deep tendon reflexes are not present. The patient is fairly flaccid. PAST MEDICAL HISTORY: Diabetes, hyperlipidemia, hypertension. Previous neck injury for patient with a fusion at the C5-C6 level, surgical history of spinal fusion. Final injuries detected The patient with a C3-C4 over C4 retrolisthesis and spinal compression. The patient will be placed in the ICU, rehydrated and monitored carefully. This patient may worsen over the next 24- 48 hours and require intubation, but right now the patient is awake and alert and intubation is not necessary. Neurosurgery is to see the patient as well. 24 Hour Review/Hospital Course: 06/22/2018 Neurologically alert and oriented and mildly sedated with Versed and fentanyl complaining about neck pain Hemodynamically now stable Required initially small dose dopamine to exert chronotropic and vasoactive effects I find Dopamine to be an ideal drug for patients with neurogenic shock Throughout the night patient was initially awake alert and oriented and in started developing more symptoms of neurogenic shock as it was expected Patient developed transitory hypotension and then periods of bradycardia and probably developed hypercapnia in the process becoming more somnolent. After the period of bradycardia patient was immediately emergently intubated and ventilated Postintubation bilateral breath sounds with good PO2 FiO2 gradient in good position of endotracheal tube PCO2 had normalized nonetheless I believe patient did have hypercarbia at the time of intubation Mentally he fully recovered he is aphasic alert and following commands about an hour after intubation Patient will undergo MRI of the C-spine followed by surgical decompression As noted in the history patient was laying on his side for about 12 hours and he has significant swelling of the right side and the right arm. Patient has good proximal pulses and distal radial pulse on palpation and ulnar by Doppler Capillary refill is intact Patient will be watched very carefully for development of increased swelling which could lead to compartment syndrome and ischemia of the hand 06/23/2018 Patient is obtunded today. He underwent surgical decompression and fixation with a halo yesterday as well as a right upper extremity fasciotomy for compartment syndrome. CT scan of the head is pending regarding the new clinical neurologic finding. 06/24/2018 CT demonstrated a left posterior cerebral artery distribution infarct as well as intraparenchymal hemorrhage and subdural hematoma. This is a devastating injury when combined with his spinal injury. Long discussion with son at the bedside. He is awaiting the arrival of his stepmother from a rehab facility because she will be the decision maker. The patient's primary care doctor is actively involved in assisting the family with the decision to likely withdraw care. Await family meeting with palliative care. 06/25/2018 Patient's was at the bedside for short period yesterday. She expressed her desire to withdraw care but she is not quite ready to do so. We will continue to provide full care until the decision is made to withdraw. If she is unable to make the decision, will proceed towards tracheostomy and gastrostomy tube placement with long-term care referrals although it has been expressed that he would not like to live in this condition. Objective Vital Signs / I&O: Vital Signs 06/24/18 11:15 06/24/18 11:30 06/24/18 11:45 Temperature Pulse Rate 58 L 58 L 58 L Respiratory Rate 0 L 0 L 0 L Blood Pressure Pulse Oximetry 100 100 99 06/24/18 12:00 06/24/18 12:15 06/24/18 13:00 Temperature 97.5 F L Pulse Rate 58 L 58 L 58 L Respiratory Rate 0 L 0 L 0 L Blood Pressure 106/46 L Pulse Oximetry 100 100 100 06/24/18 14:00 06/24/18 16:00 06/24/18 17:25 Temperature 96.3 F L Pulse Rate 65 59 L Respiratory Rate 14 14 14 Blood Pressure 102/49 L 132/59 L Pulse Oximetry 100 100 100 06/24/18 20:00 06/24/18 20:10 06/24/18 23:07 Temperature 97.6 F Pulse Rate 58 L Respiratory Rate 14 14 14 Blood Pressure 111/50 L Pulse Oximetry 100 100 100 06/25/18 00:00 06/25/18 03:27 06/25/18 04:00 Temperature 94.2 F L 95.0 F L Pulse Rate 56 L 57 L Respiratory Rate 14 14 14 Blood Pressure 132/58 L 121/55 L Pulse Oximetry 100 100 100 06/25/18 08:27 Temperature Pulse Rate Respiratory Rate 12 Blood Pressure Pulse Oximetry 100 Intake & Output 06/24/18 06/25/18 06/25/18 18:59 06:59 18:59 Intake Total 1043 / 1043 1250 / 1250 1000 / 1000 Output Total 650 / 650 1305 / 1305 Balance 393 / 393 -55 / -55 1000 / 1000 Weight 104.8 kg Intake: IV 1043 / 1043 1250 / 1250 1000 / 1000 Versed Inj 50 mg In 50 ml @ 2 19 / 19 MG/HR 2 mls/hr IV.CONT TITRATE PRN Rx#:[id number] Levophed Inj 4 MG In NS Inj 246 250 / 250 ML @ 2 MCG/MIN 7.5 mls/hr IV. SIG TITRATE PRN Rx#:[id number] NS Inj 1,000 ML @ 100 mls/hr IV 1000 / 1000 1000 / 1000 1000 / 1000 .SIG .Q10H BISI Rx#:[id number] fentaNYL 10 mcg/mL Premix Drip 24 / 24 2,500 mcg In 250 ml @ 50 MCG/HR 5 mls/hr IV.SIG TITRATE PRN Rx #:[id number] Oral 0 / 0 Output: Urine Amount (Catheter) 650 / 650 1300 / 1300 Indwelling Urethral Catheter 650 / 650 1300 / 1300 Wound Drainage 5 / 5 # 1 Anterior Neck 5 / 5 Other: # Bowel Movements 0 0 Result Diagrams: 06/25/18 07:33 06/25/18 07:33 Imaging: Impressions Chest X-Ray 06/25/18 06:00 CONCLUSION: 1. ET tube tip 1.7 cm above the fannie and needs to be withdrawn 1 cm. 2. Persistent left lower lobe consolidation. Disinhibition Score: 14.00 Aggression Score: 14.00 Lability Score: 14.00 Agitated Behavior Total Score: 14 - Exam VP SALES: Moving feet spontaneously but not to command no cough gag or corneal reflex, pupils are fixed Hemodynamic/Cardiac: Regular rate and rhythm, stable Pulmonary/Respiratory: Clear to auscultation bilaterally Abdomen/GI Nutrition: Soft nontender nondistended, no feeding access with multiple attempts at OG tube and nasogastric tube placement Renal/I&O: Acute kidney injury with elevated BUN/creatinine Assessment and Plan Plan: Patient's is contemplating withdrawal of care because it is been stated multiple times he would not like to persist in this condition. She states she would like more time. Until then we will continue current care. He is DO NOT RESUSCITATE. 45 minutes critical care time
--- NOTE | 2018-06-25 16:33 | P.PNPAL ---
Reason for Visit Reason for visit: a. To assist with evaluation and management of symptoms including: pain. b. To assist medical decision maker(s) with: better understanding of current medical conditions; weighing benefits/burdens of medical treatment options; making medical treatment decisions. Subjective Subjective/Interval History: Patient seen and examined in ICU. Discussed with nursing staff and Dr. Duron. Patient remains intubated on mech vent. He is off all sedation and is unresponsive. Pupils unequal. He remains on Insulin and Levophed drips. No evidence of neurologic recovery. Other clinical data: * WBC 8.4, hemoglobin 8.0, hematocrit 23.9, platelets 139, neutrophils 82.1% * sodium 147, potassium 3.6, chloride 120, BUN 41, creatinine 1.61 * t. bili 0.2, AST 209, ALT 30, Alk phos 81 * total protein 5.5, albumin 1.5 Family/Friend Interactions: 4:30pm Call from nurse to report and other family at bedside. Met with , son, DIL and other family friends at bedside. Medical update provided. Explained again grim prognosis. She says again she "needs more time." Upon clarification she was thinking "another month or so." Lengthy conversation about his Living Will, family verbalized statements yesterday that patient would not want to be prolonged artificially, would not want to live a life of dependence and that we do not expect neurologic recovery. I reviewed tracheostomy and PEG tube decisions she would likely be facing next week, she indicates he would not want that. She tells me she still has hope, with further exploration she hopes for a miracle. We talked about miracles and how few people at his age with comorbidities, ongoing function and health decline prior to admission get those miracles and how a true miracle happens with or without medical technology. She agrees. She talks a lot about her health and living conditions, inability to go home now that he is dying. She is talking about arrangements and who needs to be called to say their good-byes with family. Anticipatory guidance regarding what withdrawal of life support would be like. Exhibits B & C on chart in case family elects to proceed before Thursday. In summary, she would like a few more days to think about this. She is not ready to transition to comfort today, though I suspect in the coming days may be ready. We agreed to meet again Thursday06/28/18. Advance Directives Living Will: Copy in medical record Health Care Surrogate: Copy in medical record Advance Directives Date on File: 11/15/08 Health Care Surrogate Name and Number: Krystle Kevin, : [phone] Documented care wishes:: Living Will directs that if he should have a terminal condition and the attending physicians have determined that there will be no recovery from such condition and that is imminent, he directs that life prolonging procedures be withheld or withdrawn and the application of such procedures would serve only to prolong artificially the process of dying and that he be permitted to naturally with only administration of medication performance of medical procedure deemed necessary to make him comfortable and alleviate pain. He further desires and directs that food and water be withheld or withdrawn when the application of such life sustaining procedures would serve only to prolonged artificially the process of dying. Significant change in goals:: In summary, she would like a few more days to think about this. She is not ready to transition to comfort today, though I suspect in the coming days may be ready. We agreed to meet again Thursday06/28/18. Objective Vital Signs: Vital Signs 06/24/18 17:25 06/24/18 20:00 06/24/18 20:10 Temperature 97.6 F Pulse Rate 58 L Respiratory Rate 14 14 14 Blood Pressure 111/50 L Pulse Oximetry 100 100 100 06/24/18 23:07 06/25/18 00:00 06/25/18 03:27 Temperature 94.2 F L Pulse Rate 56 L Respiratory Rate 14 14 14 Blood Pressure 132/58 L Pulse Oximetry 100 100 100 06/25/18 04:00 06/25/18 08:00 06/25/18 08:27 Temperature 95.0 F L 95.7 F L Pulse Rate 57 L 58 L Respiratory Rate 14 12 12 Blood Pressure 121/55 L 116/52 L Pulse Oximetry 100 100 100 06/25/18 10:00 06/25/18 12:00 06/25/18 12:49 Temperature 96.3 F L Pulse Rate 58 L 64 Respiratory Rate 12 14 Blood Pressure 170/62 H Pulse Oximetry 100 100 06/25/18 14:00 06/25/18 16:00 06/25/18 16:24 Temperature 96.4 F L Pulse Rate 64 66 Respiratory Rate 12 12 Blood Pressure 116/50 L Pulse Oximetry 100 100 Intake & Output 06/24/18 06/25/18 06/25/18 18:59 06:59 18:59 Intake Total 1043 / 1043 1250 / 1250 1020 / 1020 Output Total 650 / 650 1305 / 1305 Balance 393 / 393 -55 / -55 1020 / 1020 Weight 104.8 kg Intake: IV 1043 / 1043 1250 / 1250 1020 / 1020 NovoLIN R (IV Infusion) 100 20 / 20 UNIT In NS Inj 99 ML @ 1 UNIT/ HR 1 mls/hr IV.CONT TITRATE PRN Rx#:[id number] Versed Inj 50 mg In 50 ml @ 2 19 / 19 MG/HR 2 mls/hr IV.CONT TITRATE PRN Rx#:[id number] Levophed Inj 4 MG In NS Inj 246 250 / 250 ML @ 2 MCG/MIN 7.5 mls/hr IV. SIG TITRATE PRN Rx#:[id number] NS Inj 1,000 ML @ 100 mls/hr IV 1000 / 1000 1000 / 1000 1000 / 1000 .SIG .Q10H BISI Rx#:[id number] fentaNYL 10 mcg/mL Premix Drip 24 / 24 2,500 mcg In 250 ml @ 50 MCG/HR 5 mls/hr IV.SIG TITRATE PRN Rx #:[id number] Oral 0 / 0 Output: Urine Amount (Catheter) 650 / 650 1300 / 1300 Indwelling Urethral Catheter 650 / 650 1300 / 1300 Wound Drainage 5 / 5 # 1 Anterior Neck 5 / 5 Other: # Bowel Movements 0 0 Physical Exam: CONSTITUTIONAL/GENERAL: This is an adequately nourished patient, [facility]. TUBES/LINES/DRAINS: Halo brace, ETT, anterior neck TRICE drain, left subclavian central line, PIV left FA, right arm dressing, Lilly, SCDs. SKIN: Generalized pallor. Ecchymoses on left UE, right arm dressing in place. Wounds on left and right foot, not visualized by me today. Skin temperature cold. HEAD: Halo brace in place. EYES: Pupils unequal, fixed. ENT: Unable to assess hearing. Nose without bleeding or purulent drainage. Throat difficult to visualize due to ETT. NECK: TRICE drain left anterior neck (serosanguineous drainage noted) with dressing in place, clean and dry. Trachea midline. CARDIOVASCULAR: Regular rate and rhythm without murmurs, gallops, or rubs. RESPIRATORY/CHEST: Unlabored respirations on mech vent. Diminishes breath sounds bilaterally. GASTROINTESTINAL: Abdomen protuberant. Bowel sounds hypoactive. GENITOURINARY: Without palpable bladder distension. Lilly catheter in place. MUSCULOSKELETAL: Extremities with edema. Cold to touch. NEUROLOGICAL: Unresponsive, off sedation. PSYCHIATRIC: Unresponsive, off sedation. Diagnostic Tests Laboratory: Laboratory Results - last 72 hr 06/22/18 06/22/18 06/22/18 06:15 17:36 18:36 WBC RBC Hgb 10.5 L Hct 29.5 L MCV MCH MCHC RDW Plt Count MPV Neut % (Auto) Lymph % (Auto) [place] % (Auto) Eos % (Auto) Baso % (Auto) Neut # (Auto) Lymph # (Auto) [place] # (Auto) Eos # (Auto) Baso # (Auto) WBC Differential Differential Comment Puncture Site Drawn in or Patient Temperature 98.6 O2 Saturation 96 ABG pH 7.34 L ABG pCO2 35 L ABG pO2 269 H ABG HCO3 18 L ABG O2 Content 18.4 ABG Base Excess -6.5 L ABG Methemoglobin 1.9 Hemoglobin 13.2 Carboxyhemoglobin 1.3 O2 Delivery Device Or Vent Setting Inspired O2 21 Critical Value No Sodium Potassium Chloride Carbon Dioxide Anion Gap BUN Creatinine Estimated GFR POC Glucose Random Glucose Calcium Prot Corrected Calcium Total Bilirubin AST ALT Alkaline Phosphatase Total Protein Albumin MTS Gel Crossmatch See Detail 06/22/18 06/22/18 06/22/18 19:51 20:21 20:21 WBC 12.3 H RBC 3.30 L Hgb 10.6 L Hct 31.2 L MCV 94.4 MCH 32.1 MCHC 34.1 RDW 16.0 Plt Count 196 MPV 8.5 Neut % (Auto) Lymph % (Auto) [place] % (Auto) Eos % (Auto) Baso % (Auto) Neut # (Auto) Lymph # (Auto) [place] # (Auto) Eos # (Auto) Baso # (Auto) WBC Differential Differential Comment Puncture Site Patient Temperature O2 Saturation ABG pH ABG pCO2 ABG pO2 ABG HCO3 ABG O2 Content ABG Base Excess ABG Methemoglobin Hemoglobin Carboxyhemoglobin O2 Delivery Device Vent Setting Inspired O2 Critical Value Sodium 136 Potassium 5.5 H Chloride 104 Carbon Dioxide 18.1 L Anion Gap 14 BUN 47 H Creatinine 2.23 H Estimated GFR 29 L POC Glucose 326 H Random Glucose 308 H D Calcium 7.5 L Prot Corrected Calcium Total Bilirubin AST ALT Alkaline Phosphatase Total Protein Albumin MTS Gel Crossmatch 06/22/18 06/22/18 06/22/18 21:02 21:05 21:59 WBC RBC Hgb Hct MCV MCH MCHC RDW Plt Count MPV Neut % (Auto) Lymph % (Auto) [place] % (Auto) Eos % (Auto) Baso % (Auto) Neut # (Auto) Lymph # (Auto) [place] # (Auto) Eos # (Auto) Baso # (Auto) WBC Differential Differential Comment Puncture Site Patient Temperature O2 Saturation ABG pH ABG pCO2 ABG pO2 ABG HCO3 ABG O2 Content ABG Base Excess ABG Methemoglobin Hemoglobin Carboxyhemoglobin O2 Delivery Device Vent Setting Inspired O2 Critical Value Sodium Potassium Chloride Carbon Dioxide Anion Gap BUN Creatinine Estimated GFR POC Glucose 554 H* 312 H 319 H Random Glucose Calcium Prot Corrected Calcium Total Bilirubin AST ALT Alkaline Phosphatase Total Protein Albumin MTS Gel Crossmatch 06/22/18 06/23/18 06/23/18 23:17 00:22 01:16 WBC RBC Hgb Hct MCV MCH MCHC RDW Plt Count MPV Neut % (Auto) Lymph % (Auto) [place] % (Auto) Eos % (Auto) Baso % (Auto) Neut # (Auto) Lymph # (Auto) [place] # (Auto) Eos # (Auto) Baso # (Auto) WBC Differential Differential Comment Puncture Site Patient Temperature O2 Saturation ABG pH ABG pCO2 ABG pO2 ABG HCO3 ABG O2 Content ABG Base Excess ABG Methemoglobin Hemoglobin Carboxyhemoglobin O2 Delivery Device Vent Setting Inspired O2 Critical Value Sodium Potassium Chloride Carbon Dioxide Anion Gap BUN Creatinine Estimated GFR POC Glucose 258 H 317 H 330 H Random Glucose Calcium Prot Corrected Calcium Total Bilirubin AST ALT Alkaline Phosphatase Total Protein Albumin MTS Gel Crossmatch 06/23/18 06/23/18 06/23/18 02:11 03:06 04:04 WBC RBC Hgb Hct MCV MCH MCHC RDW Plt Count MPV Neut % (Auto) Lymph % (Auto) [place] % (Auto) Eos % (Auto) Baso % (Auto) Neut # (Auto) Lymph # (Auto) [place] # (Auto) Eos # (Auto) Baso # (Auto) WBC Differential Differential Comment Puncture Site Patient Temperature O2 Saturation ABG pH ABG pCO2 ABG pO2 ABG HCO3 ABG O2 Content ABG Base Excess ABG Methemoglobin Hemoglobin Carboxyhemoglobin O2 Delivery Device Vent Setting Inspired O2 Critical Value Sodium Potassium Chloride Carbon Dioxide Anion Gap BUN Creatinine Estimated GFR POC Glucose 305 H 272 H 296 H Random Glucose Calcium Prot Corrected Calcium Total Bilirubin AST ALT Alkaline Phosphatase Total Protein Albumin MTS Gel Crossmatch 06/23/18 06/23/18 06/23/18 05:07 05:10 05:10 WBC 14.8 H RBC 3.32 L Hgb 10.5 L Hct 31.1 L MCV 93.5 MCH 31.5 MCHC 33.7 RDW 15.7 Plt Count 200 MPV 8.5 Neut % (Auto) 88.3 H Lymph % (Auto) 4.9 L [place] % (Auto) 6.8 Eos % (Auto) 0.0 Baso % (Auto) 0.0 Neut # (Auto) 13.1 H Lymph # (Auto) 0.7 L [place] # (Auto) 1.0 H Eos # (Auto) 0.0 Baso # (Auto) 0.0 WBC Differential . Differential Comment Auto diff final Puncture Site Patient Temperature O2 Saturation ABG pH ABG pCO2 ABG pO2 ABG HCO3 ABG O2 Content ABG Base Excess ABG Methemoglobin Hemoglobin Carboxyhemoglobin O2 Delivery Device Vent Setting Inspired O2 Critical Value Sodium 137 Potassium 5.0 Chloride 106 Carbon Dioxide 18.1 L Anion Gap 13 BUN 50 H Creatinine 2.62 H Estimated GFR 24 L POC Glucose 264 H Random Glucose 275 H Calcium 7.0 L* Prot Corrected Calcium 7.7 L Total Bilirubin 0.2 AST 735 H ALT 127 H Alkaline Phosphatase 67 Total Protein 5.8 L Albumin 1.8 L MTS Gel Crossmatch 06/23/18 06/23/18 06/23/18 05:48 06:09 07:13 WBC RBC Hgb Hct MCV MCH MCHC RDW Plt Count MPV Neut % (Auto) Lymph % (Auto) [place] % (Auto) Eos % (Auto) Baso % (Auto) Neut # (Auto) Lymph # (Auto) [place] # (Auto) Eos # (Auto) Baso # (Auto) WBC Differential Differential Comment Puncture Site Art line Patient Temperature 98.6 O2 Saturation 97 ABG pH 7.52 H* ABG pCO2 19 L* ABG pO2 155 H ABG HCO3 15 L* ABG O2 Content 13.9 ABG Base Excess -7.0 L ABG Methemoglobin 1.3 Hemoglobin 10.0 L Carboxyhemoglobin 1.4 O2 Delivery Device Ventilator Vent Setting Prvc/ac Inspired O2 40 Critical Value Yes Sodium Potassium Chloride Carbon Dioxide Anion Gap BUN Creatinine Estimated GFR POC Glucose 275 H 274 H Random Glucose Calcium Prot Corrected Calcium Total Bilirubin AST ALT Alkaline Phosphatase Total Protein Albumin MTS Gel Crossmatch 06/23/18 06/23/18 06/23/18 08:08 09:12 10:12 WBC RBC Hgb Hct MCV MCH MCHC RDW Plt Count MPV Neut % (Auto) Lymph % (Auto) [place] % (Auto) Eos % (Auto) Baso % (Auto) Neut # (Auto) Lymph # (Auto) [place] # (Auto) Eos # (Auto) Baso # (Auto) WBC Differential Differential Comment Puncture Site Patient Temperature O2 Saturation ABG pH ABG pCO2 ABG pO2 ABG HCO3 ABG O2 Content ABG Base Excess ABG Methemoglobin Hemoglobin Carboxyhemoglobin O2 Delivery Device Vent Setting Inspired O2 Critical Value Sodium Potassium Chloride Carbon Dioxide Anion Gap BUN Creatinine Estimated GFR POC Glucose 271 H 287 H 257 H Random Glucose Calcium Prot Corrected Calcium Total Bilirubin AST ALT Alkaline Phosphatase Total Protein Albumin MTS Gel Crossmatch 06/23/18 06/23/18 06/23/18 11:22 12:05 14:00 WBC RBC Hgb Hct MCV MCH MCHC RDW Plt Count MPV Neut % (Auto) Lymph % (Auto) [place] % (Auto) Eos % (Auto) Baso % (Auto) Neut # (Auto) Lymph # (Auto) [place] # (Auto) Eos # (Auto) Baso # (Auto) WBC Differential Differential Comment Puncture Site Patient Temperature O2 Saturation ABG pH ABG pCO2 ABG pO2 ABG HCO3 ABG O2 Content ABG Base Excess ABG Methemoglobin Hemoglobin Carboxyhemoglobin O2 Delivery Device Vent Setting Inspired O2 Critical Value Sodium Potassium Chloride Carbon Dioxide Anion Gap BUN Creatinine Estimated GFR POC Glucose 274 H 304 H 299 H Random Glucose Calcium Prot Corrected Calcium Total Bilirubin AST ALT Alkaline Phosphatase Total Protein Albumin MTS Gel Crossmatch 06/23/18 06/23/18 06/23/18 17:02 18:30 19:26 WBC RBC Hgb Hct MCV MCH MCHC RDW Plt Count MPV Neut % (Auto) Lymph % (Auto) [place] % (Auto) Eos % (Auto) Baso % (Auto) Neut # (Auto) Lymph # (Auto) [place] # (Auto) Eos # (Auto) Baso # (Auto) WBC Differential Differential Comment Puncture Site Patient Temperature O2 Saturation ABG pH ABG pCO2 ABG pO2 ABG HCO3 ABG O2 Content ABG Base Excess ABG Methemoglobin Hemoglobin Carboxyhemoglobin O2 Delivery Device Vent Setting Inspired O2 Critical Value Sodium Potassium Chloride Carbon Dioxide Anion Gap BUN Creatinine Estimated GFR POC Glucose 256 H 262 H 221 H Random Glucose Calcium Prot Corrected Calcium Total Bilirubin AST ALT Alkaline Phosphatase Total Protein Albumin MTS Gel Crossmatch 06/23/18 06/23/18 06/23/18 20:25 20:33 21:56 WBC RBC Hgb Hct MCV MCH MCHC RDW Plt Count MPV Neut % (Auto) Lymph % (Auto) [place] % (Auto) Eos % (Auto) Baso % (Auto) Neut # (Auto) Lymph # (Auto) [place] # (Auto) Eos # (Auto) Baso # (Auto) WBC Differential Differential Comment Puncture Site Patient Temperature O2 Saturation ABG pH ABG pCO2 ABG pO2 ABG HCO3 ABG O2 Content ABG Base Excess ABG Methemoglobin Hemoglobin Carboxyhemoglobin O2 Delivery Device Vent Setting Inspired O2 Critical Value Sodium Potassium Chloride Carbon Dioxide Anion Gap BUN Creatinine Estimated GFR POC Glucose 241 H 241 H 265 H Random Glucose Calcium Prot Corrected Calcium Total Bilirubin AST ALT Alkaline Phosphatase Total Protein Albumin MTS Gel Crossmatch 06/23/18 06/23/18 06/24/18 22:37 23:50 00:49 WBC RBC Hgb Hct MCV MCH MCHC RDW Plt Count MPV Neut % (Auto) Lymph % (Auto) [place] % (Auto) Eos % (Auto) Baso % (Auto) Neut # (Auto) Lymph # (Auto) [place] # (Auto) Eos # (Auto) Baso # (Auto) WBC Differential Differential Comment Puncture Site Patient Temperature O2 Saturation ABG pH ABG pCO2 ABG pO2 ABG HCO3 ABG O2 Content ABG Base Excess ABG Methemoglobin Hemoglobin Carboxyhemoglobin O2 Delivery Device Vent Setting Inspired O2 Critical Value Sodium Potassium Chloride Carbon Dioxide Anion Gap BUN Creatinine Estimated GFR POC Glucose 243 H 260 H 237 H Random Glucose Calcium Prot Corrected Calcium Total Bilirubin AST ALT Alkaline Phosphatase Total Protein Albumin MTS Gel Crossmatch 06/24/18 06/24/18 06/24/18 01:52 02:58 03:24 WBC RBC Hgb Hct MCV MCH MCHC RDW Plt Count MPV Neut % (Auto) Lymph % (Auto) [place] % (Auto) Eos % (Auto) Baso % (Auto) Neut # (Auto) Lymph # (Auto) [place] # (Auto) Eos # (Auto) Baso # (Auto) WBC Differential Differential Comment Puncture Site Patient Temperature O2 Saturation ABG pH ABG pCO2 ABG pO2 ABG HCO3 ABG O2 Content ABG Base Excess ABG Methemoglobin Hemoglobin Carboxyhemoglobin O2 Delivery Device Vent Setting Inspired O2 Critical Value Sodium Potassium Chloride Carbon Dioxide Anion Gap BUN Creatinine Estimated GFR POC Glucose 255 H 277 H 246 H Random Glucose Calcium Prot Corrected Calcium Total Bilirubin AST ALT Alkaline Phosphatase Total Protein Albumin MTS Gel Crossmatch 06/24/18 06/24/18 06/24/18 04:35 04:35 05:11 WBC 12.8 H RBC 2.82 L Hgb 9.0 L Hct 26.7 L MCV 94.6 MCH 31.9 MCHC 33.8 RDW 16.1 Plt Count 167 MPV 8.5 Neut % (Auto) 83.2 H Lymph % (Auto) 8.7 L [place] % (Auto) 7.9 Eos % (Auto) 0.1 Baso % (Auto) 0.1 Neut # (Auto) 10.6 H Lymph # (Auto) 1.1 [place] # (Auto) 1.0 H Eos # (Auto) 0.0 Baso # (Auto) 0.0 WBC Differential . Differential Comment Auto diff final Puncture Site Patient Temperature O2 Saturation ABG pH ABG pCO2 ABG pO2 ABG HCO3 ABG O2 Content ABG Base Excess ABG Methemoglobin Hemoglobin Carboxyhemoglobin O2 Delivery Device Vent Setting Inspired O2 Critical Value Sodium 141 Potassium 4.0 D Chloride 110 H Carbon Dioxide 19.8 L Anion Gap 11 BUN 53 H Creatinine 2.33 H Estimated GFR 28 L POC Glucose 247 H Random Glucose 243 H Calcium 6.7 L* Prot Corrected Calcium 7.5 L Total Bilirubin 0.2 AST 347 H ALT 55 Alkaline Phosphatase 64 Total Protein 5.4 L Albumin 1.7 L MTS Gel Crossmatch 06/24/18 06/24/18 06/24/18 05:50 05:57 06:40 WBC RBC Hgb Hct MCV MCH MCHC RDW Plt Count MPV Neut % (Auto) Lymph % (Auto) [place] % (Auto) Eos % (Auto) Baso % (Auto) Neut # (Auto) Lymph # (Auto) [place] # (Auto) Eos # (Auto) Baso # (Auto) WBC Differential Differential Comment Puncture Site [place] Patient Temperature 98.6 O2 Saturation 97 ABG pH 7.44 H ABG pCO2 25 L ABG pO2 137 H ABG HCO3 16 L* ABG O2 Content 19.5 ABG Base Excess -7.1 L ABG Methemoglobin 1.2 Hemoglobin 14.3 Carboxyhemoglobin 1.2 O2 Delivery Device Ventilator Vent Setting See comment Inspired O2 30 Critical Value Yes Sodium Potassium Chloride Carbon Dioxide Anion Gap BUN Creatinine Estimated GFR POC Glucose 240 H 214 H Random Glucose Calcium Prot Corrected Calcium Total Bilirubin AST ALT Alkaline Phosphatase Total Protein Albumin MTS Gel Crossmatch 06/24/18 06/24/18 06/24/18 08:01 09:12 10:04 WBC RBC Hgb Hct MCV MCH MCHC RDW Plt Count MPV Neut % (Auto) Lymph % (Auto) [place] % (Auto) Eos % (Auto) Baso % (Auto) Neut # (Auto) Lymph # (Auto) [place] # (Auto) Eos # (Auto) Baso # (Auto) WBC Differential Differential Comment Puncture Site Patient Temperature O2 Saturation ABG pH ABG pCO2 ABG pO2 ABG HCO3 ABG O2 Content ABG Base Excess ABG Methemoglobin Hemoglobin Carboxyhemoglobin O2 Delivery Device Vent Setting Inspired O2 Critical Value Sodium Potassium Chloride Carbon Dioxide Anion Gap BUN Creatinine Estimated GFR POC Glucose 236 H 267 H 278 H Random Glucose Calcium Prot Corrected Calcium Total Bilirubin AST ALT Alkaline Phosphatase Total Protein Albumin MTS Gel Crossmatch 06/24/18 06/24/18 06/24/18 11:01 12:13 13:09 WBC RBC Hgb Hct MCV MCH MCHC RDW Plt Count MPV Neut % (Auto) Lymph % (Auto) [place] % (Auto) Eos % (Auto) Baso % (Auto) Neut # (Auto) Lymph # (Auto) [place] # (Auto) Eos # (Auto) Baso # (Auto) WBC Differential Differential Comment Puncture Site Patient Temperature O2 Saturation ABG pH ABG pCO2 ABG pO2 ABG HCO3 ABG O2 Content ABG Base Excess ABG Methemoglobin Hemoglobin Carboxyhemoglobin O2 Delivery Device Vent Setting Inspired O2 Critical Value Sodium Potassium Chloride Carbon Dioxide Anion Gap BUN Creatinine Estimated GFR POC Glucose 249 H 212 H 231 H Random Glucose Calcium Prot Corrected Calcium Total Bilirubin AST ALT Alkaline Phosphatase Total Protein Albumin MTS Gel Crossmatch 06/24/18 06/24/18 06/24/18 14:03 15:52 17:15 WBC RBC Hgb Hct MCV MCH MCHC RDW Plt Count MPV Neut % (Auto) Lymph % (Auto) [place] % (Auto) Eos % (Auto) Baso % (Auto) Neut # (Auto) Lymph # (Auto) [place] # (Auto) Eos # (Auto) Baso # (Auto) WBC Differential Differential Comment Puncture Site Patient Temperature O2 Saturation ABG pH ABG pCO2 ABG pO2 ABG HCO3 ABG O2 Content ABG Base Excess ABG Methemoglobin Hemoglobin Carboxyhemoglobin O2 Delivery Device Vent Setting Inspired O2 Critical Value Sodium Potassium Chloride Carbon Dioxide Anion Gap BUN Creatinine Estimated GFR POC Glucose 257 H 226 H 229 H Random Glucose Calcium Prot Corrected Calcium Total Bilirubin AST ALT Alkaline Phosphatase Total Protein Albumin MTS Gel Crossmatch 06/24/18 06/24/18 06/24/18 18:03 18:52 19:58 WBC RBC Hgb Hct MCV MCH MCHC RDW Plt Count MPV Neut % (Auto) Lymph % (Auto) [place] % (Auto) Eos % (Auto) Baso % (Auto) Neut # (Auto) Lymph # (Auto) [place] # (Auto) Eos # (Auto) Baso # (Auto) WBC Differential Differential Comment Puncture Site Patient Temperature O2 Saturation ABG pH ABG pCO2 ABG pO2 ABG HCO3 ABG O2 Content ABG Base Excess ABG Methemoglobin Hemoglobin Carboxyhemoglobin O2 Delivery Device Vent Setting Inspired O2 Critical Value Sodium Potassium Chloride Carbon Dioxide Anion Gap BUN Creatinine Estimated GFR POC Glucose 244 H 239 H 205 H Random Glucose Calcium Prot Corrected Calcium Total Bilirubin AST ALT Alkaline Phosphatase Total Protein Albumin MTS Gel Crossmatch 06/24/18 06/24/18 06/24/18 21:07 22:24 23:29 WBC RBC Hgb Hct MCV MCH MCHC RDW Plt Count MPV Neut % (Auto) Lymph % (Auto) [place] % (Auto) Eos % (Auto) Baso % (Auto) Neut # (Auto) Lymph # (Auto) [place] # (Auto) Eos # (Auto) Baso # (Auto) WBC Differential Differential Comment Puncture Site Patient Temperature O2 Saturation ABG pH ABG pCO2 ABG pO2 ABG HCO3 ABG O2 Content ABG Base Excess ABG Methemoglobin Hemoglobin Carboxyhemoglobin O2 Delivery Device Vent Setting Inspired O2 Critical Value Sodium Potassium Chloride Carbon Dioxide Anion Gap BUN Creatinine Estimated GFR POC Glucose 198 H 182 H 182 H Random Glucose Calcium Prot Corrected Calcium Total Bilirubin AST ALT Alkaline Phosphatase Total Protein Albumin MTS Gel Crossmatch 06/25/18 06/25/18 06/25/18 00:25 01:30 02:27 WBC RBC Hgb Hct MCV MCH MCHC RDW Plt Count MPV Neut % (Auto) Lymph % (Auto) [place] % (Auto) Eos % (Auto) Baso % (Auto) Neut # (Auto) Lymph # (Auto) [place] # (Auto) Eos # (Auto) Baso # (Auto) WBC Differential Differential Comment Puncture Site Patient Temperature O2 Saturation ABG pH ABG pCO2 ABG pO2 ABG HCO3 ABG O2 Content ABG Base Excess ABG Methemoglobin Hemoglobin Carboxyhemoglobin O2 Delivery Device Vent Setting Inspired O2 Critical Value Sodium Potassium Chloride Carbon Dioxide Anion Gap BUN Creatinine Estimated GFR POC Glucose 181 H 185 H 187 H Random Glucose Calcium Prot Corrected Calcium Total Bilirubin AST ALT Alkaline Phosphatase Total Protein Albumin MTS Gel Crossmatch 06/25/18 06/25/18 06/25/18 03:33 04:39 06:25 WBC RBC Hgb Hct MCV MCH MCHC RDW Plt Count MPV Neut % (Auto) Lymph % (Auto) [place] % (Auto) Eos % (Auto) Baso % (Auto) Neut # (Auto) Lymph # (Auto) [place] # (Auto) Eos # (Auto) Baso # (Auto) WBC Differential Differential Comment Puncture Site [place] Patient Temperature 98.6 O2 Saturation 97 ABG pH 7.47 H ABG pCO2 22 L* ABG pO2 168 H ABG HCO3 16 L* ABG O2 Content 11.4 L ABG Base Excess -7.2 L ABG Methemoglobin 1.1 Hemoglobin 8.1 L Carboxyhemoglobin 1.3 O2 Delivery Device Vent Vent Setting See comments Inspired O2 30 Critical Value Yes Sodium Potassium Chloride Carbon Dioxide Anion Gap BUN Creatinine Estimated GFR POC Glucose 165 H 180 H Random Glucose Calcium Prot Corrected Calcium Total Bilirubin AST ALT Alkaline Phosphatase Total Protein Albumin MTS Gel Crossmatch 06/25/18 06/25/18 06/25/18 06:38 07:32 07:33 WBC 8.4 RBC 2.53 L Hgb 8.0 L Hct 23.9 L MCV 94.2 MCH 31.6 MCHC 33.5 RDW 16.4 Plt Count 139 L MPV 8.6 Neut % (Auto) 82.1 H Lymph % (Auto) 10.3 [place] % (Auto) 6.8 Eos % (Auto) 0.7 Baso % (Auto) 0.1 Neut # (Auto) 6.9 Lymph # (Auto) 0.9 L [place] # (Auto) 0.6 Eos # (Auto) 0.1 Baso # (Auto) 0.0 WBC Differential . Differential Comment Auto diff final Puncture Site Patient Temperature O2 Saturation ABG pH ABG pCO2 ABG pO2 ABG HCO3 ABG O2 Content ABG Base Excess ABG Methemoglobin Hemoglobin Carboxyhemoglobin O2 Delivery Device Vent Setting Inspired O2 Critical Value Sodium Potassium Chloride Carbon Dioxide Anion Gap BUN Creatinine Estimated GFR POC Glucose 168 H 176 H Random Glucose Calcium Prot Corrected Calcium Total Bilirubin AST ALT Alkaline Phosphatase Total Protein Albumin MTS Gel Crossmatch 06/25/18 06/25/18 06/25/18 07:33 08:35 09:34 WBC RBC Hgb Hct MCV MCH MCHC RDW Plt Count MPV Neut % (Auto) Lymph % (Auto) [place] % (Auto) Eos % (Auto) Baso % (Auto) Neut # (Auto) Lymph # (Auto) [place] # (Auto) Eos # (Auto) Baso # (Auto) WBC Differential Differential Comment Puncture Site Patient Temperature O2 Saturation ABG pH ABG pCO2 ABG pO2 ABG HCO3 ABG O2 Content ABG Base Excess ABG Methemoglobin Hemoglobin Carboxyhemoglobin O2 Delivery Device Vent Setting Inspired O2 Critical Value Sodium 147 H Potassium 3.6 Chloride 120 H D Carbon Dioxide 18.4 L Anion Gap 9 BUN 41 H Creatinine 1.61 H Estimated GFR 43 L POC Glucose 177 H 161 H Random Glucose 148 H Calcium 7.0 L* Prot Corrected Calcium 7.8 L Total Bilirubin 0.2 AST 209 H ALT 30 Alkaline Phosphatase 81 Total Protein 5.5 L Albumin 1.5 L MTS Gel Crossmatch 06/25/18 12:30 WBC RBC Hgb Hct MCV MCH MCHC RDW Plt Count MPV Neut % (Auto) Lymph % (Auto) [place] % (Auto) Eos % (Auto) Baso % (Auto) Neut # (Auto) Lymph # (Auto) [place] # (Auto) Eos # (Auto) Baso # (Auto) WBC Differential Differential Comment Puncture Site Patient Temperature O2 Saturation ABG pH ABG pCO2 ABG pO2 ABG HCO3 ABG O2 Content ABG Base Excess ABG Methemoglobin Hemoglobin Carboxyhemoglobin O2 Delivery Device Vent Setting Inspired O2 Critical Value Sodium Potassium Chloride Carbon Dioxide Anion Gap BUN Creatinine Estimated GFR POC Glucose 196 H Random Glucose Calcium Prot Corrected Calcium Total Bilirubin AST ALT Alkaline Phosphatase Total Protein Albumin MTS Gel Crossmatch Result Diagrams: 06/25/18 07:33 06/25/18 07:33 Imaging: Cervical Spine X-Ray 06/22/18 00:00 CONCLUSION: There is post anterior cervical fusion at C3-C4 as well as within the lower cervical spine. Chest CT 06/22/18 00:00 CONCLUSION: No acute abnormality is identified within the chest. Venous Doppler Study 06/22/18 00:00 CONCLUSION: 1. No evidence of deep venous thrombosis within the right lower extremity. Pelvis X-Ray 06/22/18 00:49 CONCLUSION: No acute pelvis abnormality is identified. Abdomen/Pelvis CT 06/22/18 00:51 CONCLUSION: 1. No acute traumatic injury is identified within the abdomen or pelvis. 2. Moderate to severe atherosclerotic disease. Cervical Spine CT 06/22/18 00:51 CONCLUSION: 1. There is a fracture involving the left C3 transverse process and likely pedicle. 2. Additionally, there is retrolisthesis of C3 on C4 which is suspected to be acute given the break in the anterior vertebral osteophytes at this level. 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 There is also asymmetric widening of the right C3-C4 facet joint. The severe spinal canal stenosis likely explains the clinical findings. 3. Otherwise, multilevel degenerative change, as above. Lumbar Spine CT 06/22/18 00:51 CONCLUSION: No acute lumbar spine injury is identified. There are degenerative changes throughout the lumbar spine consisting primarily of facet arthrosis with likely mild spinal canal narrowing at L2-L3 and L3-L4. Thoracic Spine CT 06/22/18 00:51 CONCLUSION: Accentuated thoracic kyphosis with multilevel degenerative change. No fracture or acute thoracic spine abnormality is identified. Cervical Spine MRI 06/22/18 06:40 CONCLUSION: 1. Fracture at C3 with retrolisthesis compressing the cord causing severe canal stenosis. 2. Edema within the cord from C2 to C5. Thoracic Spine MRI 06/22/18 06:41 CONCLUSION: 1. Kyphosis without compression deformity. 2. Left-sided protrusion at T9-10 without canal stenosis. There is narrowing of the left lateral recess. 3. Asymmetric left-sided disc bulge T10-11. Lumbar Spine MRI 06/22/18 06:42 CONCLUSION: 1. Multilevel disc bulges. 2. No compression fracture. Head CT 06/23/18 00:00 CONCLUSION: 1. Interval development of intraparenchymal and subdural hemorrhage involving the left temporal lobe tracking over the tentorium. 2. 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 3. Study is limited by the artifact generated from the halo. . Chest X-Ray 06/25/18 06:00 CONCLUSION: 1. ET tube tip 1.7 cm above the fannie and needs to be withdrawn 1 cm. 2. Persistent left lower lobe consolidation. Procedures: * 06/22/18 - C3-4 anterior cervical discectomy, interbody arthodhesis using PEEK cage filled with autologous bone graft, plate and screws and Halo brace placement. * 06/22/18 - right arm fasciotomy. Assessment and Plan - Disease Oriented Problem List (1) Respiratory failure (2) Neurogenic shock, traumatic (3) Compartment syndrome (4) Cervical spine fracture (5) Paralysis (6) Fall Pertinent Non-Medical Issues: Psychosocial: Originally from [place]. Moved to [place] at age 3. for 27 years to current , [place]. 2 children (1 son, 1 daughter-estranged). 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 Was in the [employer] during [place]. Parents , father of lung cancer, mother unknown. One brother and one sister (lives in [place]). No tobacco use. Seldom social drinker. Spiritual: Member of [employer]. Welcomes learning support assistant support. [employer] members also visiting per . Legal: Patient is not capacitated to make his own health care decisions, not expected to regain capacity. Has Designation of Health Care Surrogate that designate Krystle Kevin as health care surrogate; Claritza Gan as alternate HCS and Naz Candelario as second alternate. Ethical issues impacting care: No known concerns at this time. Important Contacts: * Krystle Kevin, /HCS: [phone] * Manuelito Kevin, son: [phone] * Aishwarya, friend: [phone] . Prognosis: Mr. Kevin is an unfortunate 68 year old male who suffered a fall at home and was not found for about 12 hours. He suffered a C3-C4 spinal cord compression that resulted in paralyzation. He underwent C3-4 anterior cervical discectomy and Halo brace placement and right arm fasciotomy. Now with interval development of intraparenchymal and subdural hemorrhage involving the left temporal lobe tracking over the tentorium, large area of infarction involving the left posterior cerebral artery territory. His prognosis is poor. Code Status: No Code DNR Plan: * Patient is not capacitated to make his own health care decisions, not expected to regain capacity. Has Designation of Health Care Surrogate that designate Krystle Kevin as health care surrogate; Claritza Gan as alternate HCS and Naz Candelario as second alternate. * NO CODE. * Met with , son and family 06/25/18: In summary, she would like a few more days to think about this. She is not ready to transition to comfort today, though I suspect in the coming days may be ready. We agreed to meet again Thursday06/28/18. * Exhibits B & C placed on chart, signed by Dr. Duron in case family decides to proceed before 06/28. * SYMPTOMS: Pain: secondary to recent falls, C spine injury,surgery, halo placement, intubation, shock, new intracranial hemorrhage, etc. Unresponsive off all sedation. No new medication recommendations at this time. * Palliative care will continue to follow to assist with symptom management, communication and further calrification of goals of medical treatment. Attestation Attestation: To help prompt me to consider important information that might be impacting today's encounter and assessment, information from prior notes written by myself or my colleagues may have been "brought forward" into today's note. My signature on this note, however, is an attestation that I personally performed the exam, history, and/or decision-making noted today, and, unless otherwise indicated, the interactions with patient, family, and staff as well as the review of records all occurred today. I also attest that the listed assessment and stated plan reflect my best clinical judgment today based on the combination of historical information, prior notes, and today's exam/ interactions. When time spent is documented, it refers only to time spent today by the signer, or if indicated, combined time spent today by collaborating physician/nurse practitioner.
[2018-06-26] MEDS: Oral Hygiene Kit OROPHARYNG SCH ×2 (00:49→04:34)
[2018-06-26] MEDS: Insulin NovoLOG Aspart Correctional Sugar Inj SQ SCH ×2 (00:49→05:07)
[2018-06-26] MEDS: Chlorhexidine Gluconate 2% 1 Pack (2 Cloths) TOPICAL SCH (04:34)
[2018-06-26 04:38] LABS: Baso % (Auto) 0.2 % (0.0-2.0); Eos # (Auto) 0.1 th/mm3 (0.0-0.4); Eos % (Auto) 0.8 % (0.0-4.0); Hematocrit 23.8 % (39.0-51.0); Hemoglobin 8.3 gm/dL (13.0-17.0); Lymph # (Auto) 0.9 th/mm3 (1.0-4.8); Lymph % (Auto) 11.9 % (9.0-44.0); Mean Corpuscular HGB Conc 34.8 % (32.0-36.0); Mean Corpuscular Hemoglobin 32.8 pg (27.0-34.0); Mean Corpuscular Volume 94.4 fL (80.0-100.0); Mean Platelet Volume 8.5 fL (7.0-11.0); Mono # (Auto) 0.6 th/mm3 (0.0-0.9); Mono % (Auto) 8.2 % (0.0-8.0); Neut # (Auto) 6.1 th/mm3 (1.8-7.7); Neut % (Auto) 78.9 % (16.0-70.0); Platelet Count 154 th/mm3 (150-450); Red Blood Count 2.52 mil/mm3 (4.50-5.90); Red Cell Distribution Width 16.5 % (11.6-17.2); White Blood Count 7.7 th/mm3 (4.0-11.0)
[2018-06-26 05:20] LABS: Albumin 1.5 g/dL (3.4-5.0); Carbon Dioxide 19.1 meq/L (21.0-32.0); Potassium 3.9 meq/L (3.5-5.1); Total Protein 5.9 g/dL (6.4-8.2)
[2018-06-26] MEDS: Sod Chloride 0.9% Inj 1,000 ML IV.SIG SCH (05:44)
[2018-06-26 05:58] LABS: ABG Base Excess -6.6 mmol/L (-2-2); ABG PCO2 27 mmHg (38-42); ABG PO2 140 mmHg (61-120)
--- NOTE | 2018-06-26 06:19 | XR ---
EXAM DATE: 06/26/2018 5:39 AM EDT AGE/SEX: 68 years / Male INDICATIONS: Follow up trauma. Respiratory status. CLINICAL DATA: This is the patient's subsequent encounter. Patient reports that signs and symptoms h ave been present for 4 - 6 days and indicates a pain score of Nonresponsive. MEDICAL/SURGICAL HISTORY: Non-responsive. Non-responsive. COMPARISON: [facility] [place], CHEST 1V SINGLE AP, 06/25/2018. . FINDINGS: Examination performed in external halo. ET tube tip 1.4 cm above the fannie. Left subclavian catheter tip projects over the distal superior vena cava. There is persisting consolidation in the left lower lung with loss of delineation of the entire left hemidiaphragm. The right lung is clear. CONCLUSION: 1. Persistent left lower lung consolidation. 2. ET tube tip 1.4 cm above the fannie and needs to be withdrawn 1 cm. Electronically signed by: Ant Hudson MD 06/26/2018 6:18 AM EDT
--- NOTE | 2018-06-26 09:56 | P.PNNS ---
Subjective Interval history: per nursing patient with poor neurological exam Physical Exam Vital signs: Vital Signs 06/25/18 10:00 06/25/18 12:00 06/25/18 12:49 Temperature 96.3 F L Pulse Rate 58 L 64 Respiratory Rate 12 14 Blood Pressure 170/62 H Pulse Oximetry 100 100 06/25/18 14:00 06/25/18 16:00 06/25/18 16:24 Temperature 96.4 F L Pulse Rate 64 66 Respiratory Rate 12 12 Blood Pressure 116/50 L Pulse Oximetry 100 100 06/25/18 18:00 06/25/18 19:50 06/25/18 20:00 Temperature 98.6 F Pulse Rate 66 66 Respiratory Rate 12 Blood Pressure 108/41 L Pulse Oximetry 100 100 06/25/18 23:26 06/26/18 00:00 06/26/18 04:00 Temperature 98.1 F 98.4 F Pulse Rate 65 67 Respiratory Rate 12 Blood Pressure 121/50 L 143/58 H Pulse Oximetry 99 100 100 06/26/18 05:31 06/26/18 07:34 Temperature Pulse Rate Respiratory Rate 12 12 Blood Pressure Pulse Oximetry 100 99 Intake & Output 06/25/18 06/26/18 06/26/18 18:59 06:59 18:59 Intake Total 1020 / 1020 1999 Output Total 955 / 955 650 / 650 Balance 65 / 65 1350 / 1350 Weight 115.5 kg Intake: IV 1020 / 1020 1999 NovoLIN R (IV Infusion) 100 20 / 20 UNIT In NS Inj 99 ML @ 1 UNIT/ HR 1 mls/hr IV.CONT TITRATE PRN Rx#:[id number] NS Inj 1,000 ML @ 100 mls/hr IV 1000 / 1000 1999 .SIG .Q10H BISI Rx#:[id number] Output: Urine Amount (Catheter) 950 / 950 650 / 650 Indwelling Urethral Catheter 950 / 950 650 / 650 Wound Drainage 5 / 5 # 1 Anterior Neck 5 / 5 Narrative: E1 intubated negative corneal reflux without gag or cough reflux pupils fixed no movement to deep stimulation in the uppers and lower extremities - Urinary Catheter Management Indwelling Urethral Catheter Cath placed during this visit: yes Reason for continuing: Hourly intake/output Insertion date: 06/22/18 Insertion time: 06:00 Assessment and Plan - Plan Imaging: CT head: Development of a left temporal intraparenchymal contusion and possible [facility] SPECIALIST territory infarct (concerning for uncal herniation) Ct cervical/MRI: fracture dislocation at C3-4 A/P: 68 yo M POD 2 C3-4 ACF and halo brace for cervical fracture/dislocation -continue halo brace -exam concerning for brain : recommend assessment for determination if patient meets clinical criteria for brain
[2018-06-26 10:21] LABS: ABG Base Excess -6.9 mmol/L (-2-2); ABG PCO2 28 mmHg (38-42); ABG PO2 473 mmHg (61-120)
[2018-06-26 10:48] LABS: ABG Base Excess -7.9 mmol/L (-2-2); ABG PCO2 50 mmHg (38-42); ABG PO2 404 mmHg (61-120)
--- NOTE | 2018-06-26 11:59 | P.PNCC ---
Subjective Brief History: This 68-year-old male was brought in as a trauma alert around 1:30 a.m. The patient apparently fell around noon at home. Was lying on his right side, unable to move for about 12 hours until a friend came to check on him. The patient was then transferred to our institution. He is noted to be paralyzed from the neck down, although on arrival, he is awake and alert, somewhat hypertensive. On arrival [place] coma scale is 15. The patient is awake, alert and oriented. His breathing is intact. Patient has no sensation or motion in upper or lower extremities. Deep tendon reflexes are not present. The patient is fairly flaccid. PAST MEDICAL HISTORY: Diabetes, hyperlipidemia, hypertension. Previous neck injury for patient with a fusion at the C5-C6 level, surgical history of spinal fusion. Final injuries detected The patient with a C3-C4 over C4 retrolisthesis and spinal compression. The patient will be placed in the ICU, rehydrated and monitored carefully. This patient may worsen over the next 24- 48 hours and require intubation, but right now the patient is awake and alert and intubation is not necessary. Neurosurgery is to see the patient as well. 24 Hour Review/Hospital Course: 06/22/2018 Neurologically alert and oriented and mildly sedated with Versed and fentanyl complaining about neck pain Hemodynamically now stable Required initially small dose dopamine to exert chronotropic and vasoactive effects I find Dopamine to be an ideal drug for patients with neurogenic shock Throughout the night patient was initially awake alert and oriented and in started developing more symptoms of neurogenic shock as it was expected Patient developed transitory hypotension and then periods of bradycardia and probably developed hypercapnia in the process becoming more somnolent. After the period of bradycardia patient was immediately emergently intubated and ventilated Postintubation bilateral breath sounds with good PO2 FiO2 gradient in good position of endotracheal tube PCO2 had normalized nonetheless I believe patient did have hypercarbia at the time of intubation Mentally he fully recovered he is aphasic alert and following commands about an hour after intubation Patient will undergo MRI of the C-spine followed by surgical decompression As noted in the history patient was laying on his side for about 12 hours and he has significant swelling of the right side and the right arm. Patient has good proximal pulses and distal radial pulse on palpation and ulnar by Doppler Capillary refill is intact Patient will be watched very carefully for development of increased swelling which could lead to compartment syndrome and ischemia of the hand 06/23/2018 Patient is obtunded today. He underwent surgical decompression and fixation with a halo yesterday as well as a right upper extremity fasciotomy for compartment syndrome. CT scan of the head is pending regarding the new clinical neurologic finding. 06/24/2018 CT demonstrated a left posterior cerebral artery distribution infarct as well as intraparenchymal hemorrhage and subdural hematoma. This is a devastating injury when combined with his spinal injury. Long discussion with son at the bedside. He is awaiting the arrival of his stepmother from a rehab facility because she will be the decision maker. The patient's primary care doctor is actively involved in assisting the family with the decision to likely withdraw care. Await family meeting with palliative care. 06/25/2018 Patient's was at the bedside for short period yesterday. She expressed her desire to withdraw care but she is not quite ready to do so. We will continue to provide full care until the decision is made to withdraw. If she is unable to make the decision, will proceed towards tracheostomy and gastrostomy tube placement with long-term care referrals although it has been expressed that he would not like to live in this condition. 06/26/2018 Patient shows no neurologic function Discussed with neurosurgeon and we went ahead and did the brain protocol with apnea test Patient has no reflexes and apnea test is positive Based on the studies this patient is currently brain I have discussed this with and the son and they understand that patient unfortunately has asked if he could kindly stay on the respirator for another day until all the family comes around which is not an unreasonable request In summary patient has and will remain on the ventilator in the unit until family says their goodbyes Objective Vital Signs / I&O: Vital Signs 06/25/18 12:00 06/25/18 12:49 06/25/18 14:00 Temperature 96.3 F L Pulse Rate 64 64 Respiratory Rate 12 14 Blood Pressure 170/62 H Pulse Oximetry 100 100 06/25/18 16:00 06/25/18 16:24 06/25/18 18:00 Temperature 96.4 F L Pulse Rate 66 66 Respiratory Rate 12 12 Blood Pressure 116/50 L Pulse Oximetry 100 100 06/25/18 19:50 06/25/18 20:00 06/25/18 23:26 Temperature 98.6 F Pulse Rate 66 Respiratory Rate 12 12 Blood Pressure 108/41 L Pulse Oximetry 100 100 99 06/26/18 00:00 06/26/18 04:00 06/26/18 05:31 Temperature 98.1 F 98.4 F Pulse Rate 65 67 Respiratory Rate 12 Blood Pressure 121/50 L 143/58 H Pulse Oximetry 100 100 100 06/26/18 07:34 Temperature Pulse Rate Respiratory Rate 12 Blood Pressure Pulse Oximetry 99 Intake & Output 06/25/18 06/26/18 06/26/18 18:59 06:59 18:59 Intake Total 1020 / 1020 1999 Output Total 955 / 955 650 / 650 Balance 65 / 65 1350 / 1350 Weight 115.5 kg Intake: IV 1020 / 1020 1999 NovoLIN R (IV Infusion) 100 20 / 20 UNIT In NS Inj 99 ML @ 1 UNIT/ HR 1 mls/hr IV.CONT TITRATE PRN Rx#:[id number] NS Inj 1,000 ML @ 100 mls/hr IV 1000 / 1000 1999 .SIG .Q10H BISI Rx#:[id number] Output: Urine Amount (Catheter) 950 / 950 650 / 650 Indwelling Urethral Catheter 950 / 950 650 / 650 Wound Drainage 5 / 5 # 1 Anterior Neck 5 / 5 Result Diagrams: 06/26/18 04:26 06/26/18 04:26 Imaging: Impressions Chest X-Ray 06/26/18 06:00 CONCLUSION: 1. Persistent left lower lung consolidation. 2. ET tube tip 1.4 cm above the fannie and needs to be withdrawn 1 cm. Disinhibition Score: 14.00 Aggression Score: 14.00 Lability Score: 14.00 Agitated Behavior Total Score: 14 Assessment and Plan Plan: Patient's is contemplating withdrawal of care because it is been stated multiple times he would not like to persist in this condition. She states she would like more time. Until then we will continue current care. He is DO NOT RESUSCITATE. 45 minutes critical care time
[2018-06-26 13:18] VITALS: PULSE 58; TEMP 97.6
[2018-06-26 15:14] VITALS: RESP 10
[2018-06-26 20:53] VITALS: BP 126/48; O2SAT 100
--- NOTE | 2018-06-27 09:32 | P.DS ---
Date of admission: 06/22/18 01:57 Primary care physician: UNKNOWN Attending physician on discharge: Joel Daniel Anticipated date of discharge: 06/26/18 Brief History from admission: Fall. DS: Diagnosis - Discharge Diagnosis (1) Cervical spine fracture Status: Acute (2) Paralysis Status: Acute (3) Fall Status: Acute (4) Respiratory failure Status: Acute (5) Neurogenic shock, traumatic Status: Acute (6) Compartment syndrome Status: Acute (7) Pain Status: Acute DS: Summary Hospital Course: AKUTAN: This is a 68-year-old male was brought in as a trauma alert around 1:30 a.m. The patient apparently fell around noon at home. Was lying on his right side, unable to move for about 12 hours until a friend came to check on him. The patient was then transferred to our institution. He is noted to be paralyzed from the neck down, although on arrival, he is awake and alert, somewhat hypertensive. On arrival [place] coma scale is 15. The patient is awake, alert and oriented. His breathing is intact. Patient has no sensation or motion in upper or lower extremities. Deep tendon reflexes are not present. The patient is fairly flaccid. PAST MEDICAL HISTORY: Diabetes, hyperlipidemia, hypertension. Previous neck injury for patient with a fusion at the C5-C6 level, surgical history of spinal fusion. INJURIES: C3 pedicle and transverse process fx C3 on C4 fx w/ retrolithesis (6mm) and severe spinal canal stenosis C3-C4 widening of facet joint NEUROGENIC SHOCK The patient will be placed in the ICU, rehydrated and monitored carefully. This patient may worsen over the next 24- 48 hours and require intubation, but right now the patient is awake and alert and intubation is not necessary. Neurosurgery is to see the patient as well. Procedures: 06/22: Intubated 06/22: HALO. C3-4 anterior cervical discectomy. 06/22: RIGHT arm fasciotomy (compartment syndrome) Consults: Neurosurgery. Palliative care. Case management. Hospital Course: 06/22/2018 Neurologically alert and oriented and mildly sedated with Versed and fentanyl complaining about neck pain. Hemodynamically now stable. Required initially small dose dopamine to exert chronotropic and vasoactive effects. I find Dopamine to be an ideal drug for patients with neurogenic shock. Throughout the night patient was initially awake alert and oriented and in started developing more symptoms of neurogenic shock as it was expected. Patient developed transitory hypotension and then periods of bradycardia and probably developed hypercapnia in the process becoming more somnolent. After the period of bradycardia patient was immediately emergently intubated and ventilated. Postintubation bilateral breath sounds with good PO2 FiO2 gradient in good position of endotracheal tube. PCO2 had normalized nonetheless I believe patient did have hypercarbia at the time of intubation. Mentally he fully recovered he is aphasic alert and following commands about an hour after intubation. Patient will undergo MRI of the C-spine followed by surgical decompression. As noted in the history patient was laying on his side for about 12 hours and he has significant swelling of the right side and the right arm. Patient has good proximal pulses and distal radial pulse on palpation and ulnar by Doppler. Capillary refill is intact. Patient will be watched very carefully for development of increased swelling which could lead to compartment syndrome and ischemia of the hand. 06/23/2018 Patient is obtunded today. He underwent surgical decompression and fixation with a halo yesterday as well as a right upper extremity fasciotomy for compartment syndrome. CT scan of the head is pending regarding the new clinical neurologic finding. 06/24/2018 CT demonstrated a left posterior cerebral artery distribution infarct as well as intraparenchymal hemorrhage and subdural hematoma. This is a devastating injury when combined with his spinal injury. Long discussion with son at the bedside. He is awaiting the arrival of his stepmother from a rehab facility because she will be the decision maker. The patient's primary care doctor is actively involved in assisting the family with the decision to likely withdraw care. Await family meeting with palliative care. 06/25/2018 Patient's was at the bedside for short period yesterday. She expressed her desire to withdraw care but she is not quite ready to do so. We will continue to provide full care until the decision is made to withdraw. If she is unable to make the decision, will proceed towards tracheostomy and gastrostomy tube placement with long-term care referrals although it has been expressed that he would not like to live in this condition. 06/26/2018 Patient shows no neurologic function. Discussed with neurosurgeon and we went ahead and did the brain protocol with apnea test. Patient has no reflexes and apnea test is positive. Based on the studies this patient is currently brain . I have discussed this with and the son and they understand that patient unfortunately has . asked if he could kindly stay on the respirator for another day until all the family comes around which is not an unreasonable request. In summary patient has and will remain on the ventilator in the unit until family says their goodbyes. Patient has no response to verbal or painful stimuli No spontaneous movements. No cough reflex. No gag reflex. No corneal reflex. No spontaneous respirations. Patient had no spontaneous respirations for 10 minutes during the apnea test. PCO2 increased from 30 to 50. Patient was pronounced brain on 06/26/2008 at 11 AM post 2nd blood gas reading/evaluation. is provided 24 hours to organize family to come in and spend time with him , and say their final goodbyes. However, and family arrived in the evening. Patient was removed from the ventilator. February Amnuelito rest in peace. - Time Spent with Patient Total time spent providing and/or coordinating discharge services: Greater than 30 minutes Exam Vital signs: Vital Signs 06/26/18 11:59 06/26/18 12:00 06/26/18 15:10 Temperature 97.6 F Pulse Rate 58 L Respiratory Rate 10 L Blood Pressure 124/48 L Pulse Oximetry 100 100 99 06/26/18 16:00 Temperature 97.6 F Pulse Rate 58 L Respiratory Rate Blood Pressure 126/48 L Pulse Oximetry 100 Intake & Output 06/26/18 06/27/18 06/27/18 18:59 06:59 18:59 Intake Total 0 / 0 Output Total 1000 / 1000 Balance -1000 / -1000 Intake: Oral 0 / 0 Output: Urine Amount (Catheter) 1000 / 1000 Indwelling Urethral Catheter 1000 / 1000 Other: # Bowel Movements 0 Results Procedures completed during hospitalization: . Labs on day of discharge: Labs from last 24 hours 06/26/18 06/26/18 10:36 10:12 Puncture Site Art line Art line Patient Temperature 98.6 98.6 O2 Saturation 98 98 ABG pH 7.20 L* 7.40 ABG pCO2 50 H 28 L ABG pO2 404 H 473 H ABG HCO3 19 L 17 L ABG O2 Content 12.2 12.6 ABG Base Excess -7.9 L -6.9 L ABG Methemoglobin 1.3 1.2 Hemoglobin 8.1 L 8.3 L Carboxyhemoglobin 0.9 1.2 O2 Delivery Device Insufflator Ventilator Liter Flow 8.00 Vent Setting Prvc/ac Inspired O2 0 100 Critical Value Yes No - Impressions ITS Impressions Cervical Spine X-Ray 06/22/18 00:00 CONCLUSION: There is post anterior cervical fusion at C3-C4 as well as within the lower cervical spine. Chest CT 06/22/18 00:00 CONCLUSION: No acute abnormality is identified within the chest. Venous Doppler Study 06/22/18 00:00 CONCLUSION: 1. No evidence of deep venous thrombosis within the right lower extremity. Pelvis X-Ray 06/22/18 00:49 CONCLUSION: No acute pelvis abnormality is identified. Abdomen/Pelvis CT 06/22/18 00:51 CONCLUSION: 1. No acute traumatic injury is identified within the abdomen or pelvis. 2. Moderate to severe atherosclerotic disease. Cervical Spine CT 06/22/18 00:51 CONCLUSION: 1. There is a fracture involving the left C3 transverse process and likely pedicle. 2. Additionally, there is retrolisthesis of C3 on C4 which is suspected to be acute given the break in the anterior vertebral osteophytes at this level. 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 There is also asymmetric widening of the right C3-C4 facet joint. The severe spinal canal stenosis likely explains the clinical findings. 3. Otherwise, multilevel degenerative change, as above. Lumbar Spine CT 06/22/18 00:51 CONCLUSION: No acute lumbar spine injury is identified. There are degenerative changes throughout the lumbar spine consisting primarily of facet arthrosis with likely mild spinal canal narrowing at L2-L3 and L3-L4. Thoracic Spine CT 06/22/18 00:51 CONCLUSION: Accentuated thoracic kyphosis with multilevel degenerative change. No fracture or acute thoracic spine abnormality is identified. Cervical Spine MRI 06/22/18 06:40 CONCLUSION: 1. Fracture at C3 with retrolisthesis compressing the cord causing severe canal stenosis. 2. Edema within the cord from C2 to C5. Thoracic Spine MRI 06/22/18 06:41 CONCLUSION: 1. Kyphosis without compression deformity. 2. Left-sided protrusion at T9-10 without canal stenosis. There is narrowing of the left lateral recess. 3. Asymmetric left-sided disc bulge T10-11. Lumbar Spine MRI 06/22/18 06:42 CONCLUSION: 1. Multilevel disc bulges. 2. No compression fracture. Head CT 06/23/18 00:00 CONCLUSION: 1. Interval development of intraparenchymal and subdural hemorrhage involving the left temporal lobe tracking over the tentorium. 2. 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 3. Study is limited by the artifact generated from the halo. . Chest X-Ray 06/26/18 06:00 CONCLUSION: 1. Persistent left lower lung consolidation. 2. ET tube tip 1.4 cm above the fannie and needs to be withdrawn 1 cm. Discharge Plan - Discharge Disposition Patient Disposition: 20 - Discharge Details Date/Time: 06/26/18 10:00 - Physicians Team Primary Care Provider: UNKNOWN, Attending Provider: Joel Daniel Other Providers: Daniele Lopez MD ; Nate Deras MD ; Mitchell Duque MD ; [employer] ; Vladimir Wyman MD ; Sherri Zaidi ARNP ; Heri Rodriguez MD ; Alice Jim MD ; Amy Argueta ARNP ; Joel Daniel MD ; Dean Duron MD
== END 2018-06-26 10:00 | disposition expired ==
LOC: NEPI 00:47 → EDBD 01:57 → NEDA 01:57 → N03 01:59
PROVIDERS: ADMIT Surgery; ATTEND Surgery